=== PATIENT | female | born 1950 | race African-American/Black ===

== ENCOUNTER 2018-08-19 20:30 | Inpatient (IN) | payer MEDICARE, OTHER ==
[~2018-08-19] VITALS: Ht 177.8 cm; Wt 101.6 kg
[~2018-08-19 20:30] MED LIST: ALLOPURINOL100 M1 ORAL; ASPIRIN81 MG ORAL; CIPRO500 MG PO; FUROSEMIDE40 MG ORAL; ISOSORBIDE DINI30 MG ORAL; KLOR-CON 88 MEQ ORAL; LEVOXYL150 MCG ORAL; LOSARTAN POTASS50 MG ORAL; METFORMIN HCL1000 M1 ORAL; MINOXIDIL2.5 MG PO; MOMETASONE FUR MC; NIFEDIPINE ER60 M2 ORAL; OMEPRAZOLE40 M1 ORAL; SINGULAIR10 MG ORAL; SYMBICORT 16010.2 G1 IH; TRAMADOL HCL50 MG ORAL; TRIAMTERENE-HC1 EAC7 ORAL
[2018-08-19 20:47] VITALS: BP 180/110
--- NOTE | 2018-08-19 20:47 | NUR ---
ED Nurse Note: Pt states she been sick 1 week and feels worse today. Pt is on 2L N/C, 96% and CPOD HX.
--- NOTE | 2018-08-19 20:51 | Emergency Room Report ---
History of Present Illness General Chief Complaint: Upper Respiratory Illness Source: Patient, EMS Present Illness HPI Patient presents with dyspnea and chest pain. This been progressing over the last couple of days. She has a history of asthma and COPD. She's been coughing and producing phlegm that's getting thicker. She denies any fevers or chills. She is on oxygen at this time. She's been using breathing treatments without help. She also has history of congestive heart failure. She's complaining about left-sided chest pain that's below her left breast and not radiating. It's more pleuritic. Pain is rated 6/10, non-radiating. The patient has indwelling Velázquez catheter. She's complains of diarrhea also related to medication that she took regarding narcotics. She denies any vomiting or nausea. She has chronic weakness which has worsened slightly. Depression. Allergies: Coded Allergies: ERYTHROMYCIN BASE (Unverified Allergy, Unknown, 07/18/18) THIOPENTAL (Unverified Allergy, Unknown, 07/18/18) Uncoded Allergies: ERYTHROMYCIN (Allergy, Unknown, 07/18/18) SODIUM PENATHOL (Allergy, Unknown, 07/18/18) Patient History Past Medical History: see triage record Social History: Denies: smoking Social History Narrative at home Now: No Reviewed Nursing Documentation: PMH: Agreed; PSxH: Agreed Nursing Documentation-PMH Hx Cardiac Problems: Yes - hyperlipidemia Hx Hypertension: Yes Hx Diabetes: Yes Review of Systems All Other Systems: negative except mentioned in HPI Physical Exam Vital Signs Date Time Temp Pulse Resp B/P (MAP) Pulse Ox O2 Delivery O2 Flow Rate FiO2 08/19/18 20:33 99.0 98 18 96 Nasal Cannula 2.0 Sp02 EP Interpretation: reviewed, abnormal - low as determined by me General Appearance: no apparent distress, alert, Chronically Ill Eyes: bilateral eye PERRL, bilateral eye other - arcus ENT: moist mucus membranes Neck: full range of motion, supple Respiratory: decreased breath sounds, wheezing, expiration Cardiovascular #1: regular rate, rhythm, edema - bilat trace to 1+ Cardiovascular #2: 2+ radial (L) Gastrointestinal: non tender, soft, decreased bowel sounds Genitourinary: no CVA tenderness Musculoskeletal: back normal, normal range of motion, no calf tenderness, Juju 's Sign negative Neurologic: alert, speech normal, oriented - X2 Psychiatric: depressed affect Skin: no rash Medical Decision Making Diagnostic Impression: Primary Impression: COPD exacerbation Additional Impressions: CHF (congestive heart failure) Qualified Codes: I50.82 - Biventricular heart failure Hypoxia UTI (urinary tract infection) Qualified Codes: N30.00 - Acute cystitis without hematuria ER Course Patient presents with dyspnea and chest pain history of COPD and asthma. Differential includes pneumonia, exacerbation of COPD, acute myocardial infarction, congestive heart failure amongst others. Evaluation will be with EKG, chest x-ray and labs including blood cultures and lactate. The patient will treated with gentle IV hydration, Solu Medrol and breathing treatments. EKG without injury. CXR with inc cor and CHF. Labs with normal WBC. Elevated BNP and lactate. UA with pyuria. Rocephin begun. Lasix given. Patient slightly improved. Admit telemetry, Dr. Olivas. Laboratory Tests Test 08/19/18 21:05 White Blood Count 5.7 K/UL (4.8-10.8) Red Blood Count 5.43 M/UL (4.20-5.40) H Hemoglobin 13.1 G/DL (12.0-16.0) Hematocrit 41.9 % (37.0-47.0) Mean Corpuscular Volume 77 FL (80-99) L Mean Corpuscular Hemoglobin 24.1 PG (27.0-31.0) L Mean Corpuscular Hemoglobin Concent 31.2 G/DL (32.0-36.0) L Red Cell Distribution Width 16.6 % (11.6-14.8) H Platelet Count 271 K/UL (150-450) Mean Platelet Volume 7.0 FL (6.5-10.1) Neutrophils (%) (Auto) 68.6 % (45.0-75.0) Lymphocytes (%) (Auto) 22.2 % (20.0-45.0) Monocytes (%) (Auto) 7.9 % (1.0-10.0) Eosinophils (%) (Auto) 0.2 % (0.0-3.0) Basophils (%) (Auto) 1.1 % (0.0-2.0) Prothrombin Time 17.6 SEC (9.30-11.50) H Prothrombin Time INR 1.7 (0.9-1.1) H PTT 33 SEC (23-33) Urine Color Yellow Urine Appearance Slightly cloudy Urine pH 5 (4.5-8.0) Urine Specific [place] 1.020 (1.005-1.035) Urine Protein 3+ (NEGATIVE) H Urine Glucose (UA) Negative (NEGATIVE) Urine Ketones Negative (NEGATIVE) Urine Blood 5+ (NEGATIVE) H Urine Nitrite Negative (NEGATIVE) Urine Bilirubin Negative (NEGATIVE) Urine Urobilinogen Normal MG/DL (0.0-1.0) Urine Leukocyte Esterase 3+ (NEGATIVE) H Urine RBC 5-10 /HPF (0 - 2) H Urine WBC 15-20 /HPF (0 - 2) H Urine Squamous Epithelial Cells Many /LPF (NONE/OCC) H Urine Calcium Oxalate Crystals Moderate /LPF (NONE) Urine Bacteria Moderate /HPF (NONE) H Sodium Level 135 MMOL/L (136-145) L Potassium Level 3.6 MMOL/L (3.5-5.1) Chloride Level 97 MMOL/L (98-107) L Carbon Dioxide Level 26 MMOL/L (21-32) Anion Gap 12 mmol/L (5-15) Blood Urea Nitrogen 24 mg/dL (7-18) H Creatinine 0.9 MG/DL (0.55-1.30) Estimate Glomerular Filtration Rate > 60 mL/min (>60) Glucose Level 129 MG/DL (74-106) H Lactic Acid Level 2.80 mmol/L (0.4-2.0) H Calcium Level 9.2 MG/DL (8.5-10.1) Total Bilirubin 1.0 MG/DL (0.2-1.0) Aspartate Amino Transferase (AST) 22 U/L (15-37) Alanine Aminotransferase (ALT) 9 U/L (12-78) L Alkaline Phosphatase 75 U/L (46-116) Total Creatine Kinase 66 U/L (26-308) Troponin I 0.048 ng/mL (0.000-0.056) Pro-B-Type Natriuretic Peptide 9532 pg/mL (0-125) H Total Protein 7.2 G/DL (6.4-8.2) Albumin 2.9 G/DL (3.4-5.0) L Globulin 4.3 g/dL Albumin/Globulin Ratio 0.7 (1.0-2.7) L Lipase 119 U/L (73-393) EKG Diagnostic Results Rate: tachycardiac Rhythm: NSR ST Segments: no acute changes Rhythm Strip Diag. Results EP Interpretation: yes Rhythm: no PVC's, other - Sinus tachycardia with PACs Chest X-Ray Diagnostic Results Chest X-Ray Diagnostic Results : Chest X-Ray Ordered: Yes # of Views/Limited/Complete: 1 View Indication: Shortness of Breath EP Interpretation: Yes Interpretation: no pneumothorax, other - inc cor, atelectasis, CHF, L effusion Impression: Other Electronically Signed by: Electronically signed by Car Lopez MD Last Vital Signs Date Time Temp Pulse Resp B/P (MAP) Pulse Ox O2 Delivery O2 Flow Rate FiO2 08/20/18 15:02 106 20 100 Nasal Cannula 2.0 28 08/20/18 13:43 125/95 08/20/18 12:00 97.7 Status: improved Disposition: ADMITTED INPATIENT Condition: Serious Car Lopez MD August 19, 2018 20:51
[2018-08-19] MEDS ORDERED: Ipratropium 0.02% Inh Soln 2.5ml UD HHN ONE (21:00)
[2018-08-19] MEDS ORDERED: Albuterol ud Inhalation HHN ONE (21:00)
[2018-08-19] MEDS ORDERED: Solu-MEDROL 125mg Inj IVP ONE (21:00)
[2018-08-19] MEDS: Sodium Chloride 550 ML IV SCH ×2 (21:19→22:38)
[2018-08-19 21:30] LABS: BASOPHILS % (AUTO) 1.1 % (0.0-2.0); EOSINOPHILS % (AUTO) 0.2 % (0.0-3.0); HEMATOCRIT 41.9 % (37.0-47.0); HEMOGLOBIN 13.1 G/DL (12.0-16.0); LYMPHOCYTES % (AUTO) 22.2 % (20.0-45.0); MEAN CORPUSCULAR VOLUME 77 FL (80-99); MONOCYTES % (AUTO) 7.9 % (1.0-10.0); NEUTROPHILS % (AUTO) 68.6 % (45.0-75.0); PLATELET COUNT 271 K/UL (150-450); RED BLOOD COUNT 5.43 M/UL (4.20-5.40); RED CELL DISTRIBUTION WIDTH 16.6 % (11.6-14.8); WHITE BLOOD COUNT 5.7 K/UL (4.8-10.8)
[2018-08-19 21:41] LABS: INR 1.7 (0.9-1.1)
[2018-08-19 21:45] LABS: ANION GAP 12 mmol/L (5-15); BLOOD UREA NITROGEN 24 mg/dL (7-18); CALCIUM 9.2 MG/DL (8.5-10.1); CARBON DIOXIDE 26 MMOL/L (21-32); CHLORIDE 97 MMOL/L (98-107); CREATININE 0.9 MG/DL (0.55-1.30); POTASSIUM 3.6 MMOL/L (3.5-5.1); SODIUM 135 MMOL/L (136-145)
[2018-08-19 21:59] LABS: ALANINE AMINOTRANSFERASE 9 U/L (12-78); ALBUMIN 2.9 G/DL (3.4-5.0); ALBUMIN/GLOBULIN RATIO 0.7 (1.0-2.7); ALKALINE PHOSPHATASE 75 U/L (46-116); ASPARTATE AMINO TRANSFERASE 22 U/L (15-37); CREATINE KINASE 66 U/L (26-308)
[2018-08-19] MEDS ORDERED: ELIQUIS5 MG PO (22:08)
[2018-08-19 22:14] LABS: APPEARANCE,URINE SLIGHTLY CLOUDY; BILIRUBIN, URINE NEGATIVE (NEGATIVE); GLUCOSE, URINE (UA) NEGATIVE (NEGATIVE); KETONES,URINE NEGATIVE (NEGATIVE); LEUKOCYTE ESTERASE ,URINE 3+ (NEGATIVE); NITRITE,URINE NEGATIVE (NEGATIVE); PH,URINE 5 (4.5-8.0); PROTEIN,URINE 3+ (NEGATIVE); UROBILINOGEN,URINE NORMAL MG/DL (0.0-1.0)
[2018-08-19 22:24] LABS: COLOR,URINE YELLOW
[2018-08-19] MEDS ORDERED: cefTRIAXone 1 GM in D5W 55 ML IVPB ONE (22:45)
--- NOTE | 2018-08-19 23:05 | NUR ---
ED Nurse Note: telephone report given to FRANKLIN Stahl for continuity of care
--- NOTE | 2018-08-19 23:13 | NUR ---
NURSE NOTES: Received pt. from ED via grace. Pt. transferred to unit and bed without any incident. Received report from FRANKLIN Love. Pt. is A/Ox4. [place] pt. to unit, room, and hospital policies. Pt. is on 2L NC. radiation therapist is in placed, IV site intact, asymptomatic, and patent. Bed is in the lowest position, locked, and alarmed. Call light within reach. No sign and symptoms of acute distress noted at this time. Will continue plan of care. Will contact Dr. Olivas for admission orders.
--- NOTE | 2018-08-19 23:15 | NUR ---
NURSE NOTES: Contacted Dr. Olivas for admission orders. Awaiting call back.
--- NOTE | 2018-08-19 23:16 | NUR ---
ED Nurse Note: pt was sent up with engine monitor, pt accompanied by mo rn and claudia emt. pt is aox4, pt shows no signs of distress, pt skkin intact except for what was documented on intervention. pt has taken all belongings. pt vss.
[2018-08-20] VITALS: BP 152/89
[2018-08-20 04:12] VITALS: BP 151/86
--- NOTE | 2018-08-20 05:54 | NUR ---
NURSE NOTES: Received admission orders from Dr. Olivas. Will note and carry out.
[2018-08-20] MEDS ORDERED: Albuterol/Ipratropium 3ml neb HHN PRN (06:45)
--- NOTE | 2018-08-20 07:30 | NUR ---
NURSE NOTES: Report received from FRANKLIN Stahl. Pt is lying comfortably in semi-fowlers with no signs of distress. A+Ox4, denies pain and SOB. Respirations are even and unlabored on room air. Velázquez is in place and patent, draining to gravity at foot of bed. IV site is intact and saline locked. Bed is at lowest position, brakes engaged, siderails x2, bed alarm on, and call light within reach. Pt is in stable condition at this time; will continue to monitor. Addendum: 08/20/18 at 0756 by JIM BRYANT RN Correction: pt is on 2 L NC
[2018-08-20] MEDS ORDERED: traMADol 50mg tab ORAL PRN (08:00)
--- NOTE | 2018-08-20 08:01 | NUR ---
HAND-OFF: Report given to FRANKLIN Lam.
[2018-08-20 08:40] VITALS: BP 151/93
[2018-08-20] MEDS: Losartan 50mg tab ORAL SCH ×3 (08:46→08:56)
[2018-08-20] MEDS: Aspirin Baby 81mg ORAL SCH (08:46)
[2018-08-20] MEDS: Solu-MEDROL 125mg Inj IVP SCH ×2 (08:46→20:34)
[2018-08-20] MEDS: Furosemide 40mg tab ORAL SCH (08:47)
[2018-08-20] MEDS: metFORMIN 500mg tab ORAL SCH ×2 (08:47→17:18)
[2018-08-20] MEDS: Eliquis 5mg tablet ORAL SCH ×2 (08:47→17:18)
[2018-08-20] MEDS: Allopurinol 100mg Tab ORAL SCH (08:48)
[2018-08-20] MEDS: Minoxidil 2.5mg tab ORAL SCH (08:48)
[2018-08-20] MEDS: Triamterene/Hctz 37.5/25 cap ORAL SCH (08:48)
[2018-08-20] MEDS ORDERED: Heparin 5000 units/ml inj SUBQ SCH (09:00)
[2018-08-20] MEDS: cefTRIAXone 1 GM in D5W 55 ML IVPB SCH (09:04)
[2018-08-20] MEDS ORDERED: HYDROcodone/Acetamin 10/325 tab ORAL PRN (10:00)
[2018-08-20] MEDS ORDERED: HYDROcodone/Acetamin 5/325 tab ORAL PRN (10:00)
[2018-08-20] MEDS: Albuterol/Ipratropium 3ml neb HHN SCH ×5 (11:00→23:00)
--- NOTE | 2018-08-20 11:52 | Diagnostic Imaging Report ---
Indication: Dyspnea Comparison: 07/17/2018 A single view chest radiograph was obtained. Findings: There is enlargement of the cardiac silhouette with pulmonary vascular redistribution and prominence, hazy vessel margins and the suggestion of interstitial edema consistent with CHF. Bones are osteopenic. IMPRESSION: Congestive heart failure
[2018-08-20 12:00] VITALS: BP 127/97
--- NOTE | 2018-08-20 12:26 | NUR ---
CASE MANAGEMENT:REVIEW 68 YR OLD FEMALE BIBA FROM HOME CC: SOB. CHEST PAIN. HAD BREATHING TREATMENTS AT HOME BUT DIDN'T HELP PMH: COPD SI: HYPOXIA. COPD EXACERBATION. UTI. CHF 99.0 98 18 96% ON 2L/NC GLUCOSE+129 LACTIC ACID+2.80 AND 3.00 BNP+9532 IS: ALBUTEROL HHN IPRATROPIUM HHN IV SOLUMEDROL 500CC NS BOLUS CHEST XRAY BLOOD CX : TO TELEMETRY UNIT INTERQUAL CRITERIA MET
--- NOTE | 2018-08-20 12:45 | History and Physical Report ---
DATE OF ADMISSION: 08/19/2018 CHIEF COMPLAINT: Shortness of breath. HISTORY OF PRESENT ILLNESS: The patient is a 68-year-old female. She has a history of congestive heart failure, COPD, and asthma. She has a history of DVT, hypertension, diabetes, and scleroderma. She presented from home with complaints of worsening progressive shortness of breath for the last several weeks. According to the patient, she has been having sweats and productive cough for the last several weeks. Denies any fevers. Because of worsening shortness of breath, she presented to the emergency room. On evaluation there, she was slightly tachycardic and hypertensive. Laboratory tests were significant for a natriuretic peptide level of 9500, slightly elevated lactic acid level of 2.8. Chest x-ray was done, but the results which are currently pending. In the emergency room, the patient received a single dose of Lasix and Solu-Medrol. She is now admitted for further evaluation and care. PAST MEDICAL HISTORY: As above. PAST SURGICAL HISTORY: Includes a history of appendectomy and . CURRENT MEDICATIONS: Reconciled and reviewed. ALLERGIES: Include erythromycin, sodium pentothal, and thiopental. FAMILY HISTORY: Noncontributory. SOCIAL HISTORY: There is no known history of alcohol or drugs. The patient is a prior smoker. PHYSICAL EXAMINATION: VITAL SIGNS: Temperature 97.3, pulse 107, respirations 22, and blood pressure 152/89. GENERAL: The patient is well developed, in no apparent distress. HEART: Regular rate and rhythm. LUNGS: Significant for bibasilar rales, otherwise no wheezes. ABDOMEN: Soft, nontender, and nondistended. EXTREMITIES: Without clubbing, cyanosis, or edema. PERTINENT DATA: Chest x-ray results are currently pending. Labs, white count 5, hemoglobin 13, hematocrit 41, and platelets 271. INR is 1.7. Sodium 135, potassium 3.6, BUN 24, and creatinine 0.9. Troponin 0.048. Natriuretic peptide level was 9500. ASSESSMENT: This is a pleasant female admitted with complaints of shortness of breath, unclear etiology, suspect some combination of heart failure and chronic obstructive pulmonary disease exacerbation, cannot rule out pulmonary embolism. She also has a history of hypertension, diabetes, and scleroderma. PLAN: 1. IV diuretic therapy. 2. Intravenous steroids. 3. Respiratory treatments. 4. Check a venous duplex of the legs. 5. Consider V/Q scan or CT pulmonary angio. 6. Continue Eliquis. Monitor for signs and symptoms of bleeding. 7. Antibiotic therapy. 8. Thyroid replacement therapy. 9. Pulmonary consultation will be obtained. Prem Robledo M.D. DR: JOHAN JOB#: [id number] CC:
--- NOTE | 2018-08-20 12:47 | Cardiology Progress Note ---
Assessment/Plan Assessment/Plan The patient is seen and examined, full consult note is dictated. Objective Last 24 Hour Vital Signs Date Time Temp Pulse Resp B/P (MAP) Pulse Ox O2 Delivery O2 Flow Rate FiO2 08/20/18 12:00 97.7 111 20 127/97 (107) 91 08/20/18 11:09 108 20 100 Nasal Cannula 2.0 28 08/20/18 11:01 28 08/20/18 11:01 106 20 96 Nasal Cannula 2.0 28 08/20/18 08:56 151/93 08/20/18 08:54 151/93 08/20/18 08:48 151/93 08/20/18 08:47 112 151/93 08/20/18 08:40 97.9 112 20 151/93 (112) 94 08/20/18 08:05 104 20 100 Nasal Cannula 2.0 28 08/20/18 08:00 109 08/20/18 07:55 108 22 95 Nasal Cannula 2.0 28 08/20/18 07:55 96 Nasal Cannula 2.0 28 08/20/18 07:55 Nasal Cannula 2.0 28 08/20/18 07:55 28 08/20/18 04:12 97.9 112 20 151/86 (107) 94 08/20/18 04:00 108 08/20/18 00:13 Nasal Cannula 2.0 08/20/18 00:00 97.3 107 22 152/89 (110) 93 08/20/18 00:00 107 08/19/18 23:15 99.0 102 34 134/104 94 Nasal Cannula 3.0 08/19/18 21:38 114 26 100 Nasal Cannula 2.0 28 08/19/18 21:11 106 26 96 Nasal Cannula 2.0 28 08/19/18 20:47 99.0 98 18 180/110 96 Nasal Cannula 2.0 08/19/18 20:47 98 18 Nasal Cannula 2.0 08/19/18 20:33 99.0 98 18 96 Nasal Cannula 2.0 Intake and Output 08/19/18 08/20/18 18:59 06:59 Output Total 300 ml Balance -300 ml Output Urine Total 300 ml Laboratory Tests Test 08/19/18 21:05 08/19/18 22:28 White Blood Count 5.7 K/UL (4.8-10.8) Red Blood Count 5.43 M/UL (4.20-5.40) H Hemoglobin 13.1 G/DL (12.0-16.0) Hematocrit 41.9 % (37.0-47.0) Mean Corpuscular Volume 77 FL (80-99) L Mean Corpuscular Hemoglobin 24.1 PG (27.0-31.0) L Mean Corpuscular Hemoglobin Concent 31.2 G/DL (32.0-36.0) L Red Cell Distribution Width 16.6 % (11.6-14.8) H Platelet Count 271 K/UL (150-450) Mean Platelet Volume 7.0 FL (6.5-10.1) Neutrophils (%) (Auto) 68.6 % (45.0-75.0) Lymphocytes (%) (Auto) 22.2 % (20.0-45.0) Monocytes (%) (Auto) 7.9 % (1.0-10.0) Eosinophils (%) (Auto) 0.2 % (0.0-3.0) Basophils (%) (Auto) 1.1 % (0.0-2.0) Prothrombin Time 17.6 SEC (9.30-11.50) H Prothromb Time International Ratio 1.7 (0.9-1.1) H Activated Partial Thromboplast Time 33 SEC (23-33) Urine Color Yellow Urine Appearance Slightly cloudy Urine pH 5 (4.5-8.0) Urine Specific [place] 1.020 (1.005-1.035) Urine Protein 3+ (NEGATIVE) H Urine Glucose (UA) Negative (NEGATIVE) Urine Ketones Negative (NEGATIVE) Urine Blood 5+ (NEGATIVE) H Urine Nitrite Negative (NEGATIVE) Urine Bilirubin Negative (NEGATIVE) Urine Urobilinogen Normal MG/DL (0.0-1.0) Urine Leukocyte Esterase 3+ (NEGATIVE) H Urine RBC 5-10 /HPF (0 - 2) H Urine WBC 15-20 /HPF (0 - 2) H Urine Squamous Epithelial Cells Many /LPF (NONE/OCC) H Urine Calcium Oxalate Crystals Moderate /LPF (NONE) Urine Bacteria Moderate /HPF (NONE) H Sodium Level 135 MMOL/L (136-145) L Potassium Level 3.6 MMOL/L (3.5-5.1) Chloride Level 97 MMOL/L (98-107) L Carbon Dioxide Level 26 MMOL/L (21-32) Anion Gap 12 mmol/L (5-15) Blood Urea Nitrogen 24 mg/dL (7-18) H Creatinine 0.9 MG/DL (0.55-1.30) Estimat Glomerular Filtration Rate > 60 mL/min (>60) Glucose Level 129 MG/DL (74-106) H Lactic Acid Level 2.80 mmol/L (0.4-2.0) H 3.00 mmol/L (0.66-2.22) H Calcium Level 9.2 MG/DL (8.5-10.1) Total Bilirubin 1.0 MG/DL (0.2-1.0) Aspartate Amino Transf (AST/SGOT) 22 U/L (15-37) Alanine Aminotransferase (ALT/SGPT) 9 U/L (12-78) L Alkaline Phosphatase 75 U/L (46-116) Total Creatine Kinase 66 U/L (26-308) Troponin I 0.048 ng/mL (0.000-0.056) Pro-B-Type Natriuretic Peptide 9532 pg/mL (0-125) H Total Protein 7.2 G/DL (6.4-8.2) Albumin 2.9 G/DL (3.4-5.0) L Globulin 4.3 g/dL Albumin/Globulin Ratio 0.7 (1.0-2.7) L Lipase 119 U/L (73-393) Ronak Snow MD August 20, 2018 12:47
--- NOTE | 2018-08-20 13:28 | NUR ---
NURSE NOTES:WOUND CARE NOTES:Pt presented on admission with resolving pressure injury sacrum .[place] epithelial noted to base of wound. Edges adherent and flat .Periwound without erythema or induration.(L)0.9cm x (W)0.8cm. DTPI noted to L heel.L heel fluctuant and tender when minimally palpated. (L)4.5cm x (W)6cm. DTPI noted to lateral R heel .Base of wound maroon ,fluctuant and tender when minimally palpated. No other areas of skin breakdown noted to all other bony prominences. Recommendations: Apply Triad Paste to sacrum. Cover with Optifoam drsg. Change every 3 days and prn. Apply Cavilon Skin Barrier to R and L heels.Cover each heel with Optifoam drsgs. Change every 7 days and prn. Reposition at least every 2hours or as tolerated. Off-load heels with pillow.
[2018-08-20 16:00] VITALS: BP 133/89
--- NOTE | 2018-08-20 16:30 | History and Physical Report ---
DATE OF ADMISSION: 08/19/2018 REASON FOR ADMISSION: COPD exacerbation. HISTORY: This is a 68-year-old female, very debilitated. The patient has had worsening shortness of breath and chest discomfort. The patient does have underlying history of COPD. The patient is homebound, oxygen dependent, bedbound. The patient with recent prolonged retirement hospitalization with decubitus, which eventually did improve. The patient notes also some discomfort and pain radiating below her left breast. The patient does have an indwelling Velázquez catheter. She does have some diarrhea. The patient is also with significant pain. The patient is admitted for further care and management. She was noted to have evidence of COPD exacerbation and congestive heart failure. PAST MEDICAL HISTORY: Notable for congestive heart failure, dyslipidemia, pressure ulcer, hypertension, diabetes, bed-bound state, and chronic obstructive pulmonary disease. MEDICATIONS: Reviewed. ALLERGIES: Reviewed. SOCIAL HISTORY: Nonsmoker and nondrinker at this time. She is fully dependent and disabled. REVIEW OF SYSTEMS: All 10 points reviewed and are essentially as above. PHYSICAL EXAMINATION: GENERAL: A well-developed female, chronically ill. VITAL SIGNS: Sats 95% on 2 liters, heart rate 108, blood pressure 151/86, temperature 97.9, and respiratory rate is 22. HEENT: Negative. NECK: Supple. No adenopathy. LUNGS: Moderate breath sounds. Scattered rhonchi and wheezes. CARDIAC: S1 and S2. Slightly tachycardic without murmurs, rubs, or gallops. ABDOMEN: Soft, nontender, and nondistended. EXTREMITIES: No cyanosis or clubbing. There is some edema. NEUROLOGICAL: Very weak overall, but alert. LABORATORY DATA: Reviewed. Albumin 2.9. Lactic acid 2.8. Sodium 135, BUN 24, and creatinine 0.9. White count is 5.7 and platelets of 271,000. IMPRESSION: 1. Chronic obstructive pulmonary disease with acute exacerbation. 2. History of congestive heart failure. 3. Lactic acidemia of unclear significance. 4. Hyponatremia. 5. Mild azotemia. 6. Mild protein-calorie malnutrition. RECOMMENDATIONS: 1. Supportive care. 2. Intravenous steroids. 3. Monitor blood sugars with diabetes med therapy. 4. Continue with Eliquis for blood thinners. 5. Blood pressure support. 6. Resume home medication. 7. Follow up clinically for change and stabilize and discharge when the patient improves. Rodolfo Olivas M.D. DR: ANDREAS JOB#: [id number] CC:
[2018-08-20] MEDS: Montelukast 10mg tablet ORAL SCH (17:18)
--- NOTE | 2018-08-20 19:10 | NUR ---
HAND-OFF: Report given to FRANKLIN Infante. Pt is in stable condition; plan of care endorsed.
--- NOTE | 2018-08-20 19:15 | NUR ---
NURSE NOTES: Received report from Darwin Santana RN. Patient in bed AAO X4 with HOB elevated at semi-fowlers with no complaints of acute pain or discomfort noted at this time. Patient able to express needs and wants verbally with no difficulty. Kept clean, dry and comfortable at all times. IV line intact and patent SL. Placed on continuous cardiac monitoring per protocol. Patient has FC for retention; kept intact, patent and draining well. On 2L NC, saturating at 93-94% with no S/S of respiratory distress or SOB noted at this time. Safety precaution in place; siderails X3 up, call light within reach, bed in lowest position, brakes and alarm on at all times. Needs and wants anticipated and attended. Will continue plan of care and monitor for any changes in condition noted. -P200 mattress ordered for healing sacral wound -ABD US in the morning 08/21/18 -NPO at midnight prior to procedure
[2018-08-20 20:00] VITALS: BP 139/80
[2018-08-21] VITALS: BP 106/79
[2018-08-21] MEDS: Albuterol/Ipratropium 3ml neb HHN SCH ×6 (02:53→23:27)
[2018-08-21 04:00] VITALS: BP 112/76
--- NOTE | 2018-08-21 04:19 | NUR ---
NURSE NOTES: Patient in bed asleep with no S/S of distress at this time. Will continue to monitor.
--- NOTE | 2018-08-21 06:45 | Consultation ---
DATE OF CONSULTATION: CONSULTING PHYSICIAN: Promise William M.D. CHIEF COMPLAINT: I was asked to see this patient by Dr. Rodolfo Matias and Dr. Prem Jay for evaluation of gastric procedure. HISTORY OF PRESENT ILLNESS: The patient is a 68-year-old -[place] woman with extensive lung disease as well as heart disease now in the hospital due to worsening shortness of breath over the last 2 weeks. The patient has some left upper quadrant and pelvic abdominal discomfort with some worsening of appetite. She does have some regurgitation at times of symptoms or gastroesophageal reflux. She states that her pain in the left abdomen has been going on and off for about a year. She occasional has diarrhea, although she attributes this to meds for chronic constipation. The patient denies any nausea, vomiting. However, she has not had any endoscopy and colonoscopy since 2006. Previously used a CPAP mask at home, but did not help. She does have home oxygen. She has lost some degree of weight, although She is not really sure of how much. The patient states that she has had a lifelong history of bronchitis, but she does deny smoking at this time. PAST MEDICAL HISTORY: History of COPD, congestive heart failure, asthma, deep vein thrombosis, hypertension, diabetes, scleroderma, chronic constipation, chronic bronchitis, status post appendectomy, status post . ALLERGIES: Include erythromycin, sodium, Pentothal thiopental. FAMILY HISTORY: Noncontributory. SOCIAL HISTORY: The patient has no history of drinking, or drugs. She denies smoking. REVIEW OF SYSTEMS: The patient also states she has a history of coronary stent placement. Atrial fibrillation. PHYSICAL EXAMINATION: GENERAL: A very pleasant -[place] woman, seen in the room. HEENT: Normocephalic and atraumatic. Sclerae anicteric. Oropharynx is clear. NECK: Supple. CHEST: Revealed coarse breath sounds. CARDIOVASCULAR: Revealed regular rate. ABDOMEN: Soft. Good bowel sounds. There is some mild left upper quadrant tenderness to palpation without guarding or rebound. EXTREMITIES: Revealed no edema. LABORATORY DATA: Noted. ASSESSMENT: This patient presents with a number of gastrointestinal symptoms, which are intermittent and chronic, although the patient has had some degree of weight loss. The patient at this time is undergoing significant pulmonary management and therefore, I will begin first step some stool tests including infectious pathologies, occult blood. The patient also had an ultrasound of the abdomen. Once she has more stabilized, CT scan can be considered. The patient is not a good candidate for endoscopy, colonoscopy at this time, but a week ago, but she has improved. RECOMMENDATIONS: Per above discussion and per orders written in the chart. Thank you for asking me to participate in care of this patient. Promise William M.D. DR: Susan JOB#: [id number] CC: SHEILA
[2018-08-21 07:31] LABS: % IRON SATURATION 4 % (15-50); IRON 14 ug/dL (50-175); TOTAL IRON BINDING CAPACITY 376 ug/dL (250-450)
[2018-08-21 07:33] LABS: FERRITIN 36 NG/ML (8-388)
--- NOTE | 2018-08-21 07:37 | NUR ---
HAND-OFF: Report given to Ksenia Maldonado RN. Patient in bed in stable condition. Endorsed plan of care.
--- NOTE | 2018-08-21 07:40 | NUR ---
NURSE NOTES: Pt received from FRANKLIN Infante alert and oriented x4 with no acute s/s of distress noted. Currently on 2L NC, no s/s of SOB. Respirations even and unlabored. IV site asymptomatic and patent. Velázquez catheter patent and draining to clear and yellow urine. Bed alarm on. Bed in lowest position, call light and belongings within reach.
[2018-08-21 08:00] VITALS: BP 107/71
--- NOTE | 2018-08-21 08:13 | General Progress Note ---
Assessment/Plan Problem List: (1) Encounter for generalized patient complaints ICD Codes: Z00.8 - Encounter for other general examination SNOMED: 675364083 (2) CHF (congestive heart failure) ICD Codes: I50.9 - Heart failure, unspecified SNOMED: 92374679 Qualifiers: Qualified Codes: I50.82 - Biventricular heart failure (3) Hypoxia ICD Codes: R09.02 - Hypoxemia SNOMED: 603334002 (4) UTI (urinary tract infection) ICD Codes: N39.0 - Urinary tract infection, site not specified SNOMED: 62398444 Qualifiers: Qualified Codes: N30.00 - Acute cystitis without hematuria (5) COPD exacerbation ICD Codes: J44.1 - Chronic obstructive pulmonary disease with (acute) exacerbation SNOMED: 642449697 Status: stable, progressing Assessment/Plan: iv abx follow up cultures resp rx abd emilie PPI xarelto monitor for bleeding steroids per pulm Subjective ROS Limited/Unobtainable: No Constitutional: Reports: malaise, weakness HEENT: Reports: no symptoms Cardiovascular: Reports: no symptoms Respiratory: Reports: cough Gastrointestinal/Abdominal: Reports: abdominal pain Genitourinary: Reports: no symptoms Neurologic/Psychiatric: Reports: no symptoms Endocrine: Reports: no symptoms Hematologic/Lymphatic: Reports: no symptoms Allergies: Coded Allergies: ERYTHROMYCIN BASE (Unverified Allergy, Unknown, 07/18/18) THIOPENTAL (Unverified Allergy, Unknown, 07/18/18) Uncoded Allergies: ERYTHROMYCIN (Allergy, Unknown, 07/18/18) SODIUM PENATHOL (Allergy, Unknown, 07/18/18) All Systems: reviewed and negative except above Subjective no events. w/o complaints. less congested. decreased cough. Objective Last 24 Hour Vital Signs Date Time Temp Pulse Resp B/P (MAP) Pulse Ox O2 Delivery O2 Flow Rate FiO2 08/21/18 06:58 96 Nasal Cannula 2.0 28 08/21/18 06:58 Nasal Cannula 2.0 28 08/21/18 06:58 Nasal Cannula 2.0 28 08/21/18 06:58 Nasal Cannula 2.0 28 08/21/18 04:00 97.4 104 20 112/76 (88) 95 08/21/18 04:00 102 08/21/18 03:03 102 20 99 Nasal Cannula 2.0 28 08/21/18 02:53 100 20 96 Nasal Cannula 2.0 28 08/21/18 02:53 28 08/21/18 00:00 97.8 107 20 106/79 (88) 92 08/21/18 00:00 111 08/20/18 23:01 Nasal Cannula 08/20/18 23:01 Nasal Cannula 08/20/18 21:00 Nasal Cannula 2.0 08/20/18 20:35 67 139/80 08/20/18 20:00 111 08/20/18 20:00 98.0 67 20 139/80 (99) 96 08/20/18 19:31 99 20 99 Nasal Cannula 2.0 28 08/20/18 19:22 Nasal Cannula 2.0 28 08/20/18 19:21 98 Nasal Cannula 2.0 28 08/20/18 19:21 28 08/20/18 19:21 98 20 98 Nasal Cannula 2.0 28 08/20/18 16:00 96.7 114 20 133/89 (104) 90 08/20/18 16:00 111 08/20/18 15:02 106 20 100 Nasal Cannula 2.0 28 08/20/18 14:52 28 08/20/18 14:52 103 20 96 Nasal Cannula 2.0 28 08/20/18 13:43 114 125/95 08/20/18 12:00 110 08/20/18 12:00 97.7 111 20 127/97 (107) 91 08/20/18 11:09 108 20 100 Nasal Cannula 2.0 28 08/20/18 11:01 28 08/20/18 11:01 106 20 96 Nasal Cannula 2.0 28 08/20/18 09:00 Nasal Cannula 2.0 08/20/18 08:56 151/93 08/20/18 08:54 151/93 08/20/18 08:48 151/93 08/20/18 08:47 112 151/93 08/20/18 08:40 97.9 112 20 151/93 (112) 94 Intake and Output 08/20/18 08/21/18 19:00 07:00 Intake Total 120 ml Output Total 50 ml 400 ml Balance 70 ml -400 ml Intake Oral 120 ml Output Urine Total 50 ml 400 ml Laboratory Tests 08/21/18 05:31: Iron Level 14L, Total Iron Binding Capacity 376, Percent Iron Saturation 4L, Unsaturated Iron Binding 362H, Ferritin 36 Height (Feet): 5 Height (Inches): 10.00 Weight (Pounds): 193 General Appearance: WD/WN, alert Neck: supple Cardiovascular: normal peripheral pulses, normal rate Respiratory/Chest: chest wall non-tender, lungs clear, normal breath sounds Abdomen: normal bowel sounds, non tender, soft, no organomegaly Pelvis: normal external exam, normal rectal exam, speculum exam normal Extremities: normal range of motion Edema: no edema noted Arm (L), no edema noted Arm (R), no edema noted Leg (L), no edema noted Leg (R), no edema noted Pedal (L), no edema noted Pedal (R), no edema noted Generalized Prem Robledo MD August 21, 2018 08:13
--- NOTE | 2018-08-21 08:20 | NUR ---
NURSE NOTES: Upon med administration, pt was coughing and had difficulty swallowing medications and thin liquids. RN endorsed to Dr. Olivas for ST craft for assessment. Per Dr. Olivas, jose ST evaluate pt. RN endorsed to Devora BALDERRAMA for eval.
[2018-08-21] MEDS: Furosemide 40mg tab ORAL SCH (08:27)
[2018-08-21] MEDS: Solu-MEDROL 125mg Inj IVP SCH ×2 (08:27→21:35)
[2018-08-21] MEDS: Aspirin Baby 81mg ORAL SCH (08:27)
[2018-08-21] MEDS: Allopurinol 100mg Tab ORAL SCH (08:27)
[2018-08-21] MEDS: Eliquis 5mg tablet ORAL SCH ×2 (08:27→17:17)
[2018-08-21] MEDS: Triamterene/Hctz 37.5/25 cap ORAL SCH (08:28)
[2018-08-21] MEDS: cefTRIAXone 1 GM in D5W 55 ML IVPB SCH (08:28)
[2018-08-21] MEDS: Losartan 50mg tab ORAL SCH (08:28)
[2018-08-21] MEDS: metFORMIN 500mg tab ORAL SCH ×2 (08:29→17:18)
[2018-08-21] MEDS: Minoxidil 2.5mg tab ORAL SCH (08:29)
--- NOTE | 2018-08-21 11:43 | Diagnostic Imaging Report ---
Indication:Abdominal pain Technique: Grayscale and duplex Doppler imaging of the abdomen performed. Comparison: None Findings: The study is limited as the patient was relatively immobile and the scan was performed completely with the patient in the right posterior oblique position. The liver is grossly unremarkable with mild generalized enlargement measuring up to 17 to 18 cm. The gallbladder shows no definite stones. Mild pericholecystic fluid noted. The demonstrated part of the pancreas, aorta and IVC obscured largely by bowel gas. Small bilateral pleural effusions are present. CBD is 4 mm.. The spleen is normal in size. Doppler evaluation of the main portal vein shows patency. No hydronephrosis seen. Impression: Mild hepatomegaly Trace ascites by the liver and gallbladder. Small bilateral pleural effusions
--- NOTE | 2018-08-21 11:46 | NUR ---
ST NOTE: BEDSIDE SWALLOW EVAL RECEIVED BEDSIDE SWALLOW EVAL ORDER CHART REVIEWED PRIOR THE EVALUATION REFERRED BY PRIMARY PHYSICIAN, DR. ALLRED PT IS A 68-YEAR-OLD FEMALE WHO WAS ADMITTED DUE TO COPD, AND ABD PAIN. DYSPHAGIA RISK FACTORS: HYPOXIA(PER MD, OXYGEN DEPENDENT), ASTH,A AND COPD, CHF, CHRONIC WEAKNESS, HTN, DM, GERD. PER CXR: CHF. PLOF: PT RESIDES AT HOME WITH DAUGHTER AND WITH CAREGIVER. NO POLST WAS NOTED. CURRENT STATUS: PT SEEN AT BEDSIDE IN AM. ALERT, COOPERATIVE, ABLE TO FOLLOW DIRECTIONS. PT WITH NC(2L). PER PT, REQUIRED BREATHING TREATMENT, THEREFORE, SHE IS ABLE TO COUGH UP THE PHLEGM. PER RNRICHA, NOTICED THAT PT SOMETIMES COUGHS WITH THIN LIQUIDS AND MASTICATED SOLID FOOD. PT WAS ONLY ABLE TO SIT UP AT 45 DEGREE. GIVEN PO TRIALS: ICE-CHIPS(TSP), THIN(TSP), NECTAR THICK(TSP), PUREE(TSP) AND CRACKER(ONE BITE). INITIAL IMPRESSION: PROBABLE MILD TO MODERATE OR WORSENED OROPHARYNGEAL DYSPHAGIA SLOW BUT FUNCTIONAL LABIAL AND LINGUAL MOVEMENT AND STRENGTH. MILDLY INCREASED ORAL TRANSIT TIME(3 SECS) UNTIL SWALLOW RESPONSE WAS TRIGGERED. PT STATES THAT THIN LIQUID AND FOOD SOMETIMES GOT STUCK IN THE LOWER THROAT AFTER SWALLOW. HAS RISK FOR ASPIRATION. RECOMMENDATIONS: 1. CONSERVATIVELY, LIQUIFIED PUREED, LIKE NECTAR THICK SOUP CONSISTENCY IS RECOMMENDED. HOWEVER, PT REFUSED TO BE ON THICK SOUP CONSISTENCY; AND WOULD LIKE TO BE ON CHOPPED DIET. FOR QUALITY OF LIFE, DIET IS RECOMMENDED MECH SOFT(CHOPPED) WITH NECTAR THICK LIQUIDS. 2. STRICT ASPIRATION/REFLUX PRECAUTIONS WITH 1TO1 ASSIST/FEEDING. 3. MODIFIED BARIUM SWALLOW STUDY ONLY IF ABLE. D/W PT AND RICHA REID. POSTED ASPIRATION/REFLUX PRECAUTIONS SIGN.
[2018-08-21 12:00] VITALS: BP 100/73
[2018-08-21] MEDS: Spironolactone 25mg tab ORAL SCH (14:35)
[2018-08-21] MEDS: traMADol 50mg tab ORAL PRN (14:35)
--- NOTE | 2018-08-21 14:55 | General Progress Note ---
Assessment/Plan Status: stable, progressing Assessment/Plan: 1. Chronic obstructive pulmonary disease with acute exacerbation. 2. History of congestive heart failure. 3. Lactic acidemia of unclear significance. 4. Hyponatremia. 5. Mild azotemia. 6. Mild protein-calorie malnutrition. PLAN increase pain management steroids as is monitor for change folllow up labs consider heme evaluation refusing snf losing weight and would benefit from additional rehab impression, plan, and exam edited and reviewed in detail care discussed with RN Subjective Allergies: Coded Allergies: ERYTHROMYCIN BASE (Unverified Allergy, Unknown, 07/18/18) THIOPENTAL (Unverified Allergy, Unknown, 07/18/18) Uncoded Allergies: ERYTHROMYCIN (Allergy, Unknown, 07/18/18) SODIUM PENATHOL (Allergy, Unknown, 07/18/18) Subjective having pain still with some sob Objective Last 24 Hour Vital Signs Date Time Temp Pulse Resp B/P (MAP) Pulse Ox O2 Delivery O2 Flow Rate FiO2 08/21/18 12:00 97.7 61 20 100/73 (82) 94 08/21/18 10:45 104 20 100 Nasal Cannula 2.0 28 08/21/18 10:35 88 22 96 Nasal Cannula 2.0 28 08/21/18 10:35 28 08/21/18 09:00 Nasal Cannula 2.0 08/21/18 08:29 107/71 08/21/18 08:28 77 107/71 08/21/18 08:28 107/71 08/21/18 08:00 96 08/21/18 08:00 97.0 77 20 107/71 (83) 95 08/21/18 06:58 96 Nasal Cannula 2.0 28 08/21/18 06:58 Nasal Cannula 2.0 28 08/21/18 06:58 Nasal Cannula 2.0 28 08/21/18 06:58 Nasal Cannula 2.0 28 08/21/18 04:00 97.4 104 20 112/76 (88) 95 08/21/18 04:00 102 08/21/18 03:03 102 20 99 Nasal Cannula 2.0 28 08/21/18 02:53 100 20 96 Nasal Cannula 2.0 28 08/21/18 02:53 28 08/21/18 00:00 97.8 107 20 106/79 (88) 92 08/21/18 00:00 111 08/20/18 23:01 Nasal Cannula 08/20/18 23:01 Nasal Cannula 08/20/18 21:00 Nasal Cannula 2.0 08/20/18 20:35 67 139/80 08/20/18 20:00 111 08/20/18 20:00 98.0 67 20 139/80 (99) 96 08/20/18 19:31 99 20 99 Nasal Cannula 2.0 28 08/20/18 19:22 Nasal Cannula 2.0 28 08/20/18 19:21 98 Nasal Cannula 2.0 28 08/20/18 19:21 28 08/20/18 19:21 98 20 98 Nasal Cannula 2.0 28 08/20/18 16:00 96.7 114 20 133/89 (104) 90 08/20/18 16:00 111 08/20/18 15:02 106 20 100 Nasal Cannula 2.0 28 Intake and Output 08/20/18 08/21/18 19:00 07:00 Intake Total 120 ml Output Total 50 ml 400 ml Balance 70 ml -400 ml Intake Oral 120 ml Output Urine Total 50 ml 400 ml Laboratory Tests 08/21/18 05:31: Iron Level 14L, Total Iron Binding Capacity 376, Percent Iron Saturation 4L, Unsaturated Iron Binding 362H, Ferritin 36 08/21/18 06:38: Magnesium Level 1.5L Height (Feet): 5 Height (Inches): 10.00 Weight (Pounds): 193 Objective HEENT: Negative. NECK: Supple. No adenopathy. LUNGS: Moderate breath sounds. Scattered rhonchi and wheezes. CARDIAC: S1 and S2. Slightly tachycardic without murmurs, rubs, or gallops. ABDOMEN: Soft, nontender, and nondistended. EXTREMITIES: No cyanosis or clubbing. There is some edema. NEUROLOGICAL: Very weak overall, but alert. Rodolfo Olivas MD August 21, 2018 14:55
[2018-08-21 16:00] VITALS: BP 113/78
[2018-08-21] MEDS: Montelukast 10mg tablet ORAL SCH (17:17)
--- NOTE | 2018-08-21 19:25 | NUR ---
HAND-OFF: Report given to FRANKLIN Infante. No acute s/s of distress noted.
--- NOTE | 2018-08-21 19:30 | NUR ---
NURSE NOTES: Received report from Ksenia Maldonado RN. Patient in bed AAO X4 with HOB elevated at semi-fowlers with no complaints of acute pain or discomfort noted at this time. Patient able to express needs and wants verbally with no difficulty. Kept clean, dry and comfortable at all times. IV line intact and patent SL. Placed on continuous cardiac monitoring per protocol. Patient has FC for retention; kept intact, patent and draining well. On 2L NC, saturating at 92-95% with no S/S of respiratory distress or SOB noted at this time. Safety precaution in place; siderails X3 up, call light within reach, bed in lowest position, brakes and alarm on at all times. Needs and wants anticipated and attended. Will continue plan of care and monitor for any changes in condition noted. -P200 [address] as ordered
[2018-08-21 20:00] VITALS: BP 118/80
--- NOTE | 2018-08-21 20:11 | NUR ---
NURSE NOTES: Called and left message for Lyudmila Olivas MD regarding Mg lvl of 1.5 and is awaiting call back. Will continue to monitor
[2018-08-21] MEDS ORDERED: NITROSTAT0.4 M1 SL (20:25)
--- NOTE | 2018-08-21 21:04 | General Progress Note ---
Assessment/Plan Status: stable, progressing Assessment/Plan: Assessment - aspiration risk - COPD - intermittent abd pain - weight loss - Iron deficiency Recommendations - pulmonary follow up - stool w/u - IV fe - defer GI w/u until patient more stable Subjective Allergies: Coded Allergies: ERYTHROMYCIN BASE (Unverified Allergy, Unknown, 07/18/18) THIOPENTAL (Unverified Allergy, Unknown, 07/18/18) Uncoded Allergies: ERYTHROMYCIN (Allergy, Unknown, 07/18/18) SODIUM PENATHOL (Allergy, Unknown, 07/18/18) Subjective Feels better breathing better some cough with thin liq noted ST eval noted - rec nectar thickened liquids and chopped diet Objective Last 24 Hour Vital Signs Date Time Temp Pulse Resp B/P (MAP) Pulse Ox O2 Delivery O2 Flow Rate FiO2 08/21/18 19:47 100 18 98 Nasal Cannula 2.0 08/21/18 19:36 100 20 96 Nasal Cannula 2.0 08/21/18 19:36 96 Nasal Cannula 2.0 08/21/18 19:36 Nasal Cannula 2.0 08/21/18 19:36 28 08/21/18 16:00 101 08/21/18 16:00 97.2 102 20 113/78 (90) 100 08/21/18 15:25 102 18 100 Nasal Cannula 2.0 08/21/18 15:15 84 18 97 Nasal Cannula 2.0 08/21/18 15:15 28 08/21/18 12:00 96 08/21/18 12:00 97.7 61 20 100/73 (82) 94 08/21/18 10:45 104 20 100 Nasal Cannula 2.0 08/21/18 10:35 88 22 96 Nasal Cannula 2.0 08/21/18 10:35 28 08/21/18 09:00 Nasal Cannula 2.0 08/21/18 08:29 107/71 08/21/18 08:28 77 107/71 08/21/18 08:28 107/71 08/21/18 08:00 96 08/21/18 08:00 97.0 77 20 107/71 (83) 95 08/21/18 06:58 96 Nasal Cannula 2.0 08/21/18 06:58 Nasal Cannula 2.0 28 08/21/18 06:58 Nasal Cannula 2.0 28 08/21/18 06:58 Nasal Cannula 2.0 28 08/21/18 04:00 97.4 104 20 112/76 (88) 95 08/21/18 04:00 102 08/21/18 03:03 102 20 99 Nasal Cannula 2.0 28 08/21/18 02:53 100 20 96 Nasal Cannula 2.0 28 08/21/18 02:53 28 08/21/18 00:00 97.8 107 20 106/79 (88) 92 08/21/18 00:00 111 08/20/18 23:01 Nasal Cannula 08/20/18 23:01 Nasal Cannula 08/20/18 21:00 Nasal Cannula 2.0 Intake and Output 08/20/18 08/21/18 19:00 07:00 Intake Total 120 ml Output Total 50 ml 400 ml Balance 70 ml -400 ml Intake Oral 120 ml Output Urine Total 50 ml 400 ml Laboratory Tests 08/21/18 05:31: Iron Level 14L, Total Iron Binding Capacity 376, Percent Iron Saturation 4L, Unsaturated Iron Binding 362H, Ferritin 36 08/21/18 06:38: Magnesium Level 1.5L Height (Feet): 5 Height (Inches): 10.00 Weight (Pounds): 193 Objective Debilitated AA woman NCAT supple Chest scattered ronchi RR abd soft ND NT no edema Promise William MD August 21, 2018 21:04
--- NOTE | 2018-08-21 21:30 | Consultation ---
DATE OF CONSULTATION: 08/20/2018 NOTE: INCOMPLETE DICTATION CARDIOLOGY CONSULTATION CONSULTING PHYSICIAN: Ronak Snow M.D. REFERRING PHYSICIAN: Rodolfo Olivas M.D. REASON FOR CONSULTATION: Management of shortness of breath. HISTORY OF PRESENT ILLNESS: The patient is a very unfortunate 68-year-old female, who presents to the hospital with dyspnea and chest pain. Shortness of breath has been progressively worse in the past few days. The patient also had associated productive cough with thick phlegm. She states that breathing treatment has not been helping her chronic obstructive pulmonary disease/asthma. Her cardiovascular history is significant for history of congestive heart failure, hypertension, diabetes, and hyperlipidemia. She states that chest pain is more in the left precordial area, however, it is pleuritic, non-radiating with the intensity of 6/10. The patient was admitted to telemetry bed. Cardiology consultation was made at the request of Dr. Olivas . PAST MEDICAL HISTORY: 1. History of congestive heart failure. 2. History of chronic obstructive pulmonary disease/asthma. 3. History of diabetes mellitus. 4. History of hypertension. 5. Hyperlipidemia. PAST SURGICAL HISTORY: None. ALLERGIES: Erythromycin and thiopental. SOCIAL HISTORY: Denies any tobacco, alcohol, or illicit drug use. REVIEW OF SYSTEMS: HEENT: Denies any headache, diplopia, or blurred vision. CONSTITUTIONAL: Denies any fever, chills, night sweats, or weight loss. CARDIOVASCULAR: Complains of chest pain and shortness of breath. Denies any PND, orthopnea, leg swelling, or syncope. PULMONARY: Productive cough with thick yellow phlegm and shortness of breath, but no hemoptysis. GASTROINTESTINAL: Denies any nausea, vomiting, diarrhea, constipation, abdominal pain, or GI bleed. GENITOURINARY: Has indwelling Velázquez catheter. NEUROLOGY: Denies any motor dysfunction, sensory deficit, or altered speech. LIST OF MEDICATIONS: Allopurinol 100 mg p.o. daily, apixaban 5 mg p.o. twice daily, aspirin 81 mg p.o. daily, Symbicort 160/4.5 inhaler once daily, ciprofloxacin 500 mg twice daily, Lasix 40 mg p.o. daily, 30 mg p.o. twice daily, Levoxyl 150 mcg p.o. daily, losartan 50 mg daily, metformin 1000 mg p.o. daily, minoxidil 2.5 mg p.o. daily, mometasone furoate 0.5 g , Singulair 10 mg p.o. daily, nifedipine 60 mg p.o. daily, omeprazole 40 mg p.o. daily, potassium chloride 8 mEq p.o. daily, tramadol 50 mg p.o. q.6 hours p.r.n. pain, and triamterene hydrochlorothiazide 37.5/25 one capsule once daily. PHYSICAL EXAMINATION: VITAL SIGNS: Blood pressure was 180/110, heart rate was 98, respirations of 18, temperature of 99.0 Fahrenheit, and O2 saturation of 96% on room air on nasal cannula. GENERAL: The patient is a very unfortunate 68-year-old female, who is in no apparent respiratory distress, chronically ill. HEENT: Atraumatic and normocephalic. Anicteric. Pupils are equal, round, and reactive to light and accommodation. Extraocular muscles intact. NECK: JVP is less than 5 cm. No carotid bruit. Carotid upstrokes 2+ bilaterally. CARDIOVASCULAR: Normal S1, S2. Regular rate and rhythm. No murmurs, gallops, or rubs. LUNGS: Diminished breath sounds with rhonchi bilaterally. ABDOMEN: Soft, nontender, and nondistended. No hepatosplenomegaly. Positive bowel sounds. EXTREMITIES: No evidence of edema, clubbing, or cyanosis. DIAGNOSTIC DATA: Chest x-ray showed cardiomegaly with the presence of a pulmonary vascular regurgitation and prominence consistent with congestive heart failure. LABORATORY FINDING: WBC is 5.7, hemoglobin 13.1, hematocrit of 41.9, and platelet count is 271,000. Chemistry shows sodium of 135 potassium is 3.6, chloride 97, bicarbonate 26, BUN of 24, creatinine 0.9, and glucose 129. Calcium is 9.2. Troponin I was 0.048. ProBNP was 9532. INR was 1.7. ASSESSMENT AND PLAN: Ronak Snow M.D. DR: ZOIE JOB#: [id number] CC:
[2018-08-21] MEDS: Carvedilol 6.25mg Tab ORAL SCH (21:35)
--- NOTE | 2018-08-21 23:59 | Cardiology Progress Note ---
Assessment/Plan Assessment/Plan 1. Dilated cardiomyopathy, known case of chronic CHF, now with acute on chronic systolic and diastolic CHF. 2De echo reveals LVEF at 25%. 2. Moderate pericardial effusion with no echo signs of cardiac tamponade. 3. Severe pulmonary HTN Subjective Subjective Atrial fibrillation at rate of 98. Had a short run of V-tach Objective Last 24 Hour Vital Signs Date Time Temp Pulse Resp B/P (MAP) Pulse Ox O2 Delivery O2 Flow Rate FiO2 08/21/18 23:37 98 18 98 Nasal Cannula 2.0 28 08/21/18 23:27 28 08/21/18 23:27 98 20 96 Nasal Cannula 2.0 28 08/21/18 21:35 103 118/80 08/21/18 21:00 Nasal Cannula 2.0 08/21/18 19:47 100 18 98 Nasal Cannula 2.0 08/21/18 19:36 100 20 96 Nasal Cannula 2.0 08/21/18 19:36 96 Nasal Cannula 2.0 08/21/18 19:36 Nasal Cannula 2.0 08/21/18 19:36 28 08/21/18 16:00 101 08/21/18 16:00 97.2 102 20 113/78 (90) 100 08/21/18 15:25 102 18 100 Nasal Cannula 2.0 08/21/18 15:15 84 18 97 Nasal Cannula 2.0 08/21/18 15:15 28 08/21/18 12:00 96 08/21/18 12:00 97.7 61 20 100/73 (82) 94 08/21/18 10:45 104 20 100 Nasal Cannula 2.0 08/21/18 10:35 88 22 96 Nasal Cannula 2.0 08/21/18 10:35 28 08/21/18 09:00 Nasal Cannula 2.0 08/21/18 08:29 107/71 08/21/18 08:28 77 107/71 08/21/18 08:28 107/71 08/21/18 08:00 96 08/21/18 08:00 97.0 77 20 107/71 (83) 95 08/21/18 06:58 96 Nasal Cannula 2.0 08/21/18 06:58 Nasal Cannula 2.0 08/21/18 06:58 Nasal Cannula 2.0 08/21/18 06:58 Nasal Cannula 2.0 28 08/21/18 04:00 97.4 104 20 112/76 (88) 95 08/21/18 04:00 102 08/21/18 03:03 102 20 99 Nasal Cannula 2.0 28 08/21/18 02:53 100 20 96 Nasal Cannula 2.0 28 08/21/18 02:53 28 08/21/18 00:00 97.8 107 20 106/79 (88) 92 08/21/18 00:00 111 Intake and Output 08/20/18 08/21/18 19:00 07:00 Intake Total 120 ml Output Total 50 ml 400 ml Balance 70 ml -400 ml Intake Oral 120 ml Output Urine Total 50 ml 400 ml 2D Echo: 4CDM, LVEF 25%,Global LVHK, Mild LVH, Mod.Peric eff., Pleural eff. RVSP 59 Laboratory Tests Test 08/21/18 05:31 08/21/18 06:38 Iron Level 14 ug/dL (50-175) L Total Iron Binding Capacity 376 ug/dL (250-450) Percent Iron Saturation 4 % (15-50) L Unsaturated Iron Binding 362 ug/dL (112-346) H Ferritin 36 NG/ML (8-388) Magnesium Level 1.5 MG/DL (1.8-2.4) L Microbiology Date/Time Source Procedure Growth Status 08/19/18 21:05 Blood Blood Culture - Preliminary NO GROWTH AFTER 24 HOURS Resulted 08/19/18 20:50 Blood Blood Culture - Preliminary NO GROWTH AFTER 24 HOURS Resulted 08/19/18 21:05 Urine,Clean Catch Urine Culture - Preliminary Gram Negative Bacillus 1 Gram Negative Bacillus 2 Resulted Objective HEENT: Atraumatic and normocephalic. Anicteric. Pupils are equal, round, and reactive to light and accommodation. Extraocular muscles intact. NECK: JVP is less than 5 cm. No carotid bruit. Carotid upstrokes 2+ bilaterally. CARDIOVASCULAR: Normal S1, S2. Regular rate and rhythm. No murmurs, gallops, or rubs. LUNGS: Diminished breath sounds with rhonchi bilaterally. ABDOMEN: Soft, nontender, and nondistended. No hepatosplenomegaly. Positive bowel sounds. EXTREMITIES: No evidence of edema, clubbing, or cyanosis. Ronak Snow MD August 21, 2018 23:59
[2018-08-22] VITALS: BP 112/82
[2018-08-22] MEDS: Albuterol/Ipratropium 3ml neb HHN SCH ×6 (03:26→23:33)
[2018-08-22 04:00] VITALS: BP 115/78
--- NOTE | 2018-08-22 07:15 | NUR ---
NURSE NOTES: Received report from Tami Meyer RN. Patient in bed AAO X4 with HOB elevated at semi-fowlers. Patient denies acute pain or discomfort noted at this time. IV line intact and patent SL. Placed on continuous cardiac monitoring per protocol. Patient has Velázquez Catheter for retention; kept intact, patent and draining well. Patient is on 2L NC; no S/S of respiratory distress or SOB noted at this time. Safety precaution in place; side rails X 3 up, call light within reach, bed in lowest position, brakes and alarm on at all times. Patient is on P200 mattress in [address] as ordered. Afterwards, patient was setup high fowlers for breakfast.
--- NOTE | 2018-08-22 07:30 | General Progress Note ---
Assessment/Plan Problem List: (1) Encounter for generalized patient complaints ICD Codes: Z00.8 - Encounter for other general examination SNOMED: 145744936 (2) CHF (congestive heart failure) ICD Codes: I50.9 - Heart failure, unspecified SNOMED: 48365532 Qualifiers: Qualified Codes: I50.82 - Biventricular heart failure (3) Hypoxia ICD Codes: R09.02 - Hypoxemia SNOMED: 087951663 (4) UTI (urinary tract infection) ICD Codes: N39.0 - Urinary tract infection, site not specified SNOMED: 55782127 Qualifiers: Qualified Codes: N30.00 - Acute cystitis without hematuria (5) COPD exacerbation ICD Codes: J44.1 - Chronic obstructive pulmonary disease with (acute) exacerbation SNOMED: 666735420 Status: stable, progressing Assessment/Plan: iv abx follow up cultures- urine with GNR resp rx PPI xarelto monitor for bleeding steroids- wean per pulm xray shoulders Subjective ROS Limited/Unobtainable: No Constitutional: Reports: weakness HEENT: Reports: no symptoms Cardiovascular: Reports: no symptoms Respiratory: Reports: cough Gastrointestinal/Abdominal: Reports: no symptoms Genitourinary: Reports: no symptoms Neurologic/Psychiatric: Reports: pre-existing deficit Endocrine: Reports: no symptoms Hematologic/Lymphatic: Reports: no symptoms Allergies: Coded Allergies: ERYTHROMYCIN BASE (Unverified Allergy, Unknown, 07/18/18) THIOPENTAL (Unverified Allergy, Unknown, 07/18/18) Uncoded Allergies: ERYTHROMYCIN (Allergy, Unknown, 07/18/18) SODIUM PENATHOL (Allergy, Unknown, 07/18/18) All Systems: reviewed and negative except above Subjective no events. c/o bilateral shoulder pain. no fever or chills. no sob Objective Last 24 Hour Vital Signs Date Time Temp Pulse Resp B/P (MAP) Pulse Ox O2 Delivery O2 Flow Rate FiO2 08/22/18 04:00 97.2 83 17 115/78 (90) 95 08/22/18 04:00 90 08/22/18 03:36 88 18 98 Nasal Cannula 2.0 28 08/22/18 03:26 93 20 93 Nasal Cannula 2.0 28 08/22/18 03:26 28 08/22/18 00:00 97.8 98 18 112/82 (92) 95 08/22/18 00:00 98 08/21/18 23:37 98 18 98 Nasal Cannula 2.0 28 08/21/18 23:27 28 08/21/18 23:27 98 20 96 Nasal Cannula 2.0 28 08/21/18 21:35 103 118/80 08/21/18 21:00 Nasal Cannula 2.0 08/21/18 20:00 100 08/21/18 20:00 97.8 103 18 118/80 (93) 99 08/21/18 19:47 100 18 98 Nasal Cannula 2.0 28 08/21/18 19:36 100 20 96 Nasal Cannula 2.0 28 08/21/18 19:36 96 Nasal Cannula 2.0 28 08/21/18 19:36 Nasal Cannula 2.0 28 08/21/18 19:36 28 08/21/18 16:00 101 08/21/18 16:00 97.2 102 20 113/78 (90) 100 08/21/18 15:25 102 18 100 Nasal Cannula 2.0 28 08/21/18 15:15 84 18 97 Nasal Cannula 2.0 28 08/21/18 15:15 28 08/21/18 12:00 96 08/21/18 12:00 97.7 61 20 100/73 (82) 94 08/21/18 10:45 104 20 100 Nasal Cannula 2.0 08/21/18 10:35 88 22 96 Nasal Cannula 2.0 28 08/21/18 10:35 28 08/21/18 09:00 Nasal Cannula 2.0 08/21/18 08:29 107/71 08/21/18 08:28 77 107/71 08/21/18 08:28 107/71 08/21/18 08:00 96 08/21/18 08:00 97.0 77 20 107/71 (83) 95 Intake and Output 08/21/18 08/22/18 18:59 06:59 Output Total 500 ml Balance -500 ml Output Urine Total 500 ml Height (Feet): 5 Height (Inches): 10.00 Weight (Pounds): 224 General Appearance: WD/WN, alert Cardiovascular: normal rate, regular rhythm Respiratory/Chest: chest wall non-tender, lungs clear, normal breath sounds, no respiratory distress, no accessory muscle use Abdomen: normal bowel sounds, non tender, soft, no organomegaly, no mass Edema: no edema noted Arm (L), no edema noted Arm (R), no edema noted Leg (L), no edema noted Leg (R), no edema noted Pedal (L), no edema noted Pedal (R), no edema noted Generalized Prem Robledo MD August 22, 2018 07:30
--- NOTE | 2018-08-22 07:56 | NUR ---
HAND-OFF: Report given to Ksenia Cade RN. PAtient in stable condition. Will continue plan of care.
[2018-08-22 08:00] VITALS: BP 116/79
[2018-08-22] MEDS: Allopurinol 100mg Tab ORAL SCH (08:57)
[2018-08-22] MEDS: Spironolactone 25mg tab ORAL SCH (08:57)
[2018-08-22] MEDS: Eliquis 5mg tablet ORAL SCH (08:57)
[2018-08-22] MEDS: Carvedilol 6.25mg Tab ORAL SCH (08:57)
[2018-08-22] MEDS: Furosemide 40mg tab ORAL SCH (08:57)
[2018-08-22] MEDS: Aspirin Baby 81mg ORAL SCH (08:57)
[2018-08-22] MEDS: Losartan 50mg tab ORAL SCH (08:57)
[2018-08-22] MEDS: Solu-MEDROL 125mg Inj IVP SCH (08:58)
[2018-08-22] MEDS: metFORMIN 500mg tab ORAL SCH ×2 (09:00→17:58)
[2018-08-22] MEDS: cefTRIAXone 1 GM in D5W 55 ML IVPB SCH (09:06)
--- NOTE | 2018-08-22 10:42 | NUR ---
CASE MANAGEMENT:REVIEW 08/22/18 SI: CHF. COPD EXACERBATION. UTI 97.9 96 18 116/79 93% ON 2L/NC IS: IV SOLUMEDROL Q12 IV ROCEPHIN Q24 IV VENOFER QHS COREG PO Q12 ALDACTONE PO QD SINGULAR PO QPM ASA PO QD LASIX PO QD DUONEB HHN Q4HRS RTC : TELEMETRY STATUS DCP: PATIENT IS FROM HOME PLAN: XRAY BILATERAL SHOULDERS
--- NOTE | 2018-08-22 10:44 | NUR ---
NURSE NOTES: Shayna from Microbiology states patient is positive for MRSA in Nares. Dr. Robledo was made aware and patient is on contact precaution.
[2018-08-22] MEDS: traMADol 50mg tab ORAL PRN (11:13)
[2018-08-22 12:00] VITALS: BP 121/81
--- NOTE | 2018-08-22 14:21 | Diagnostic Imaging Report ---
Indication: left shoulder pain Findings: 3 views of the left shoulder were obtained. Alignment of the left shoulder is normal. No acute fracture is identified. Soft tissues are unremarkable. Impression: No acute injury
--- NOTE | 2018-08-22 14:31 | Diagnostic Imaging Report ---
Indication: Right shoulder pain Findings: 3 views of the right shoulder were obtained. No acute fractures, malalignment, erosions or periostitis are identified. Bones are osteopenic. Soft tissues are unremarkable. Impression: Negative for acute injury
--- NOTE | 2018-08-22 14:37 | Pulmonology Progress Note ---
Assessment/Plan Assessment/Plan Pulmonary Progress Note Status: stable, progressing Assessment/Plan: 1. Chronic obstructive pulmonary disease with acute exacerbation. 2. History of congestive heart failure. 3. Lactic acidemia of unclear significance. 4. Hyponatremia. 5. Mild azotemia. 6. Mild protein-calorie malnutrition. PLAN increase pain management Wean steroids as tolerated monitor for change folllow up labs consider heme evaluation refusing snf losing weight and would benefit from additional rehab impression, plan, and exam edited and reviewed in detail care discussed with RN Subjective Allergies: Coded Allergies: ERYTHROMYCIN BASE (Unverified Allergy, Unknown, 07/18/18) THIOPENTAL (Unverified Allergy, Unknown, 07/18/18) Uncoded Allergies: ERYTHROMYCIN (Allergy, Unknown, 07/18/18) SODIUM PENATHOL (Allergy, Unknown, 07/18/18) Subjective Less sob Objective Vital Signs Noted Laboratory Tests 08/21/18 05:31: Iron Level 14L, Total Iron Binding Capacity 376, Percent Iron Saturation 4L, Unsaturated Iron Binding 362H, Ferritin 36 08/21/18 06:38: Magnesium Level 1.5L Height (Feet): 5 Height (Inches): 10.00 Weight (Pounds): 193 Objective HEENT: Negative. NECK: Supple. No adenopathy. LUNGS: Moderate breath sounds. Scattered rhonchi and wheezes. CARDIAC: S1 and S2. Slightly tachycardic without murmurs, rubs, or gallops. ABDOMEN: Soft, nontender, and nondistended. EXTREMITIES: No cyanosis or clubbing. There is some edema. NEUROLOGICAL: Very weak overall, but alert. Subjective ROS Limited/Unobtainable: No Allergies: Coded Allergies: ERYTHROMYCIN BASE (Unverified Allergy, Unknown, 07/18/18) THIOPENTAL (Unverified Allergy, Unknown, 07/18/18) Uncoded Allergies: ERYTHROMYCIN (Allergy, Unknown, 07/18/18) SODIUM PENATHOL (Allergy, Unknown, 07/18/18) Objective Last 24 Hour Vital Signs Date Time Temp Pulse Resp B/P (MAP) Pulse Ox O2 Delivery O2 Flow Rate FiO2 08/22/18 12:00 97.9 08/22/18 12:00 97.3 93 18 121/81 (94) 96 08/22/18 11:05 89 20 96 Nasal Cannula 2.0 28 08/22/18 10:56 97 20 93 Nasal Cannula 2.0 28 08/22/18 09:00 Nasal Cannula 2.0 08/22/18 08:57 89 116/79 08/22/18 08:57 116/79 08/22/18 08:13 89 08/22/18 08:00 97.9 96 18 116/79 (91) 93 08/22/18 07:57 93 18 94 Nasal Cannula 2.0 28 08/22/18 07:48 93 20 90 Nasal Cannula 2.0 28 08/22/18 07:48 90 Nasal Cannula 2.0 28 08/22/18 07:48 Nasal Cannula 2.0 28 08/22/18 04:00 97.2 83 17 115/78 (90) 95 08/22/18 04:00 90 08/22/18 03:36 88 18 98 Nasal Cannula 2.0 08/22/18 03:26 93 20 93 Nasal Cannula 2.0 08/22/18 03:26 28 08/22/18 00:00 97.8 98 18 112/82 (92) 95 08/22/18 00:00 98 08/21/18 23:37 98 18 98 Nasal Cannula 2.0 08/21/18 23:27 28 08/21/18 23:27 98 20 96 Nasal Cannula 2.0 08/21/18 21:35 103 118/80 08/21/18 21:00 Nasal Cannula 2.0 08/21/18 20:00 100 08/21/18 20:00 97.8 103 18 118/80 (93) 99 08/21/18 19:47 100 18 98 Nasal Cannula 2.0 08/21/18 19:36 100 20 96 Nasal Cannula 2.0 08/21/18 19:36 96 Nasal Cannula 2.0 08/21/18 19:36 Nasal Cannula 2.0 28 08/21/18 19:36 28 08/21/18 16:00 101 08/21/18 16:00 97.2 102 20 113/78 (90) 100 08/21/18 15:25 102 18 100 Nasal Cannula 2.0 28 08/21/18 15:15 84 18 97 Nasal Cannula 2.0 28 08/21/18 15:15 28 Intake and Output 08/21/18 08/22/18 19:00 07:00 Output Total 500 ml Balance -500 ml Output Urine Total 500 ml Microbiology Date/Time Source Procedure Growth Status 08/19/18 21:05 Blood Blood Culture - Preliminary NO GROWTH AFTER 48 HOURS Resulted 08/19/18 20:50 Blood Blood Culture - Preliminary NO GROWTH AFTER 48 HOURS Resulted 08/19/18 21:53 Nasal Nares MRSA Culture - Final Staphylococcus Aureus - Mrsa Complete 08/19/18 21:05 Urine,Clean Catch Urine Culture - Preliminary Escherichia Coli Streptococcus Species Resulted 08/19/18 21:53 Rectum - Final NO CARBAPENEM-RESISTANT ENTEROBACTERI... Complete 08/19/18 21:53 Rectum VRE Culture - Final NO VANCOMYCIN RESISTANT ENTEROCOCCUS ... Complete Current Medications Medications (Trade) Dose Ordered Sig/[place] Route PRN Reason Start Time Stop Time Status Last Admin Dose Admin Acetaminophen/ Hydrocodone Bitart ([place] 10/325) 1 tab Q4H PRN ORAL Severe Pain (Pain Scale 7-10) 08/20/18 10:00 08/27/18 09:59 Acetaminophen/ Hydrocodone Bitart ([place] 5/325) 1 tab Q4H PRN ORAL Moderate Pain (Pain Scale 4-6) 08/20/18 10:00 08/27/18 09:59 Albuterol/ Ipratropium (Albuterol/ Ipratropium) 3 ml Q4HRT HHN 08/20/18 07:00 08/25/18 06:59 08/22/18 10:53 Albuterol/ Ipratropium (Albuterol/ Ipratropium) 3 ml Q4HRT PRN HHN Shortness of Breath 08/20/18 06:45 08/25/18 06:44 Allopurinol (Zyloprim) 100 mg DAILY ORAL 08/20/18 09:00 09/19/18 08:59 08/22/18 08:57 Apixaban (Eliquis) 5 mg BID ORAL 08/20/18 09:00 09/19/18 08:59 08/22/18 08:57 Aspirin (ASA) 81 mg DAILY ORAL 08/20/18 09:00 09/19/18 08:59 08/22/18 08:57 Carvedilol (Coreg) 6.25 mg EVERY 12 HOURS ORAL 08/21/18 21:00 09/20/18 20:59 08/22/18 08:57 Ceftriaxone Sodium 1 gm/ Dextrose 55 ml @ 110 mls/hr DAILY IVPB 08/20/18 09:00 08/27/18 08:59 08/22/18 09:06 Furosemide (Lasix) 40 mg DAILY ORAL 08/20/18 09:00 09/19/18 08:59 08/22/18 08:57 Iron Sucrose 100 mg/Sodium Chloride 60 ml @ 240 mls/hr BEDTIME IV 08/22/18 21:00 08/26/18 21:14 Levothyroxine Sodium (Synthroid) 150 mcg ACBREAKFAST ORAL 08/20/18 09:00 09/19/18 08:59 08/22/18 05:17 Losartan Potassium (Cozaar) 50 mg DAILY ORAL 08/20/18 09:00 09/19/18 08:59 08/22/18 08:57 Metformin HCl (Glucophage) 500 mg BID ORAL 08/20/18 09:00 09/19/18 08:59 08/20/18 17:18 Methylprednisolone Sodium Succinate (Solu-MEDROL) 60 mg EVERY 12 HOURS IVP 08/20/18 09:00 09/19/18 08:59 08/22/18 08:58 Montelukast Sodium (Singulair) 10 mg QPM ORAL 08/20/18 16:30 09/19/18 16:29 08/21/18 17:17 Spironolactone (Aldactone) 25 mg DAILY ORAL 08/21/18 14:15 09/20/18 14:14 08/22/18 08:57 Tramadol HCl (Ultram) 50 mg Q6H PRN ORAL Mild Pain (Pain Scale 1-3) 08/20/18 10:30 08/27/18 10:29 08/22/18 11:13 Car Joseph MD August 22, 2018 14:37
--- NOTE | 2018-08-22 14:46 | NUR ---
NURSE NOTES: Noticed blood in urine of bustillo catheter. Notified Dr. Robledo. Orders entered. labs will be sent.
--- NOTE | 2018-08-22 15:02 | NUR ---
RD ASSESSMENT & RECOMMENDATIONS SEE CARE ACTIVITY FOR COMPLETE ASSESSMENT DAILY ESTIMATED NEEDS: Needs based on Wound, cardiac/ 73kg abw 25-30 kcals/kg 7626-2972 total kcals 1.25-1.5 g protein/kg 91-109 g total protein 20-22 mL/kg 5454-5155 total fluid mLs NUTRITION DIAGNOSIS: * Increased kcal/prot needs R/T wound healing as evidenced by pt admitted w/ sacral resolving open wound per WC specialist. * Swallowing difficulty R/T dysphagia as evidenced by pt on mech soft chopped, NTL per [facility]IPPER rec. CURRENT DIET:CCHO MED, mech soft chopped, NTL PO DIET RECOMMENDATIONS: CCHO MED, LOW NA/ texture per [facility] ADDITIONAL RECOMMENDATIONS: * Calibrated bedscale wt for accurate CBW (now w/ added P200 mattress) -> daily wt monitoring per policy: CHF dx * Wound healing: add MVI x 1, Vit C 250mg QD, Srikanth 1pkt BID * Updated CBC and BMP as able * Monitor lytes closely w/ diuretics, replete as needed (low mag) * Monitor BGs closely while on solumedrol
[2018-08-22 16:00] VITALS: BP 125/77
[2018-08-22] MEDS: Montelukast 10mg tablet ORAL SCH (16:30)
[2018-08-22 16:46] LABS: APPEARANCE,URINE TURBID; BILIRUBIN, URINE NEGATIVE (NEGATIVE); GLUCOSE, URINE (UA) NEGATIVE (NEGATIVE); KETONES,URINE NEGATIVE (NEGATIVE); LEUKOCYTE ESTERASE ,URINE 3+ (NEGATIVE); NITRITE,URINE NEGATIVE (NEGATIVE); PH,URINE 6 (4.5-8.0); PROTEIN,URINE 3+ (NEGATIVE); UROBILINOGEN,URINE NORMAL MG/DL (0.0-1.0)
[2018-08-22 16:48] LABS: COLOR,URINE RED
--- NOTE | 2018-08-22 17:04 | General Progress Note ---
Assessment/Plan Status: stable, progressing Assessment/Plan: Assessment - aspiration risk - COPD - intermittent abd pain - weight loss - Iron deficiency Recommendations - pulmonary follow up - stool w/u - IV fe - defer GI w/u until patient more stable Subjective Allergies: Coded Allergies: ERYTHROMYCIN BASE (Unverified Allergy, Unknown, 07/18/18) THIOPENTAL (Unverified Allergy, Unknown, 07/18/18) Uncoded Allergies: ERYTHROMYCIN (Allergy, Unknown, 07/18/18) SODIUM PENATHOL (Allergy, Unknown, 07/18/18) Subjective Feels better advised re aspiration risk swallow safety instructions given Objective Last 24 Hour Vital Signs Date Time Temp Pulse Resp B/P (MAP) Pulse Ox O2 Delivery O2 Flow Rate FiO2 08/22/18 15:27 92 20 94 Nasal Cannula 2.0 28 08/22/18 12:00 97.9 08/22/18 12:00 97.3 93 18 121/81 (94) 96 08/22/18 11:05 89 20 96 Nasal Cannula 2.0 08/22/18 10:56 97 20 93 Nasal Cannula 2.0 28 08/22/18 09:00 Nasal Cannula 2.0 08/22/18 08:57 89 116/79 08/22/18 08:57 116/79 08/22/18 08:13 89 08/22/18 08:00 97.9 96 18 116/79 (91) 93 08/22/18 07:57 93 18 94 Nasal Cannula 2.0 28 08/22/18 07:48 93 20 90 Nasal Cannula 2.0 08/22/18 07:48 90 Nasal Cannula 2.0 08/22/18 07:48 Nasal Cannula 2.0 28 08/22/18 04:00 97.2 83 17 115/78 (90) 95 08/22/18 04:00 90 08/22/18 03:36 88 18 98 Nasal Cannula 2.0 28 08/22/18 03:26 93 20 93 Nasal Cannula 2.0 28 08/22/18 03:26 28 08/22/18 00:00 97.8 98 18 112/82 (92) 95 08/22/18 00:00 98 08/21/18 23:37 98 18 98 Nasal Cannula 2.0 28 08/21/18 23:27 28 5/14/19 23:27 98 20 96 Nasal Cannula 2.0 28 08/21/18 21:35 103 118/80 08/21/18 21:00 Nasal Cannula 2.0 08/21/18 20:00 100 08/21/18 20:00 97.8 103 18 118/80 (93) 99 08/21/18 19:47 100 18 98 Nasal Cannula 2.0 28 08/21/18 19:36 100 20 96 Nasal Cannula 2.0 28 08/21/18 19:36 96 Nasal Cannula 2.0 28 08/21/18 19:36 Nasal Cannula 2.0 28 08/21/18 19:36 28 Intake and Output 08/21/18 08/22/18 19:00 07:00 Output Total 500 ml Balance -500 ml Output Urine Total 500 ml Laboratory Tests 08/22/18 14:00: Urine Color Red, Urine Appearance Turbid, Urine pH 6, Urine Specific [place] 1.015, Urine Protein 3+H, Urine Glucose (UA) Negative, Urine Ketones Negative, Urine Blood 5+H, Urine Nitrite Negative, Urine Bilirubin Negative, Urine Urobilinogen Normal, Urine Leukocyte Esterase 3+H, Urine RBC TntcH, Urine WBC 2- 4, Urine Squamous Epithelial Cells Occasional, Urine Bacteria Few Height (Feet): 5 Height (Inches): 10.00 Weight (Pounds): 224 Objective Debilitated AA woman NCAT supple Chest scattered ronchi RR abd soft ND NT no edema Promise William MD August 22, 2018 17:04
[2018-08-22] MEDS ORDERED: [UNRECOGNIZED DRUG - REMARK] (18:11)
[2018-08-22] MEDS ORDERED: BIOTIN1 MG PO (18:11)
[2018-08-22] MEDS ORDERED: MAGNESIUM250 M2 PO (18:11)
[2018-08-22] MEDS ORDERED: HYDROXYCHLOROQ200 M1 PO (18:11)
[2018-08-22] MEDS ORDERED: LINZESS145 MCG PO (18:11)
[2018-08-22] MEDS ORDERED: VENTOLIN HFA18 GM INH (18:11)
[2018-08-22] MEDS ORDERED: NITROSTAT0.4 M1 SL (18:11)
[2018-08-22] MEDS ORDERED: B COMPLEX1 EACH ORAL (18:11)
[2018-08-22] MEDS ORDERED: SPIRIVA18 MCG INH (18:11)
[2018-08-22] MEDS ORDERED: MULTIVITAMINS1 EA14 PO (18:11)
[2018-08-22] MEDS ORDERED: LATANOPROST2.5 ML BOTH EYES (18:11)
[2018-08-22] MEDS ORDERED: EMLA CREAM30 GM TOPIC (18:11)
[2018-08-22] MEDS ORDERED: FREESTYLE LITE1 EAC1 MC (18:11)
[2018-08-22] MEDS ORDERED: TRIAMCINOLONE A15 GM TP (18:11)
[2018-08-22] MEDS ORDERED: CALCIUM + VITA1 EAC1 PO (18:11)
--- NOTE | 2018-08-22 19:40 | NUR ---
NURSE NOTES: Received pt from FRANKLIN Ramsey. pt in bed resting, no acute distress noted, no c/o pain at this time. bustillo intact with red color urine, pt's dinner tray at bedside pt refusing eating, bed locked and lowest position, bed side rial up x2, call light within reach, will round pt hourly to ensure pt's safety.
--- NOTE | 2018-08-22 19:42 | NUR ---
HAND-OFF: Report given to FRANKLIN Sue. Patient is resting in bed. Was repositioned. Velázquez intact and benefits coordinator red/yellow urine. Patient refused to eat lunch and dinner.
[2018-08-22 20:00] VITALS: BP 116/75
--- NOTE | 2018-08-22 20:06 | Cardiology Progress Note ---
Assessment/Plan Assessment/Plan 1. Dilated cardiomyopathy, known case of chronic CHF, now with acute on chronic systolic and diastolic CHF. 2De echo reveals LVEF at 25%. Continue GDMT. 2. Moderate pericardial effusion with no echo signs of cardiac tamponade. 3. Severe pulmonary HTN Subjective Subjective Sinus rhythm at 90 with single VPC. Objective Last 24 Hour Vital Signs Date Time Temp Pulse Resp B/P (MAP) Pulse Ox O2 Delivery O2 Flow Rate FiO2 08/22/18 16:00 93 08/22/18 16:00 97.8 87 18 125/77 (93) 94 08/22/18 15:36 96 20 98 Nasal Cannula 2.0 28 08/22/18 15:27 92 20 94 Nasal Cannula 2.0 28 08/22/18 15:14 93 08/22/18 12:00 97.9 08/22/18 12:00 97.3 93 18 121/81 (94) 96 08/22/18 11:52 89 08/22/18 11:05 89 20 96 Nasal Cannula 2.0 08/22/18 10:56 97 20 93 Nasal Cannula 2.0 28 08/22/18 09:00 Nasal Cannula 2.0 08/22/18 08:57 89 116/79 08/22/18 08:57 116/79 08/22/18 08:13 89 08/22/18 08:00 97.9 96 18 116/79 (91) 93 08/22/18 07:57 93 18 94 Nasal Cannula 2.0 08/22/18 07:48 93 20 90 Nasal Cannula 2.0 08/22/18 07:48 90 Nasal Cannula 2.0 08/22/18 07:48 Nasal Cannula 2.0 28 08/22/18 04:00 97.2 83 17 115/78 (90) 95 08/22/18 04:00 90 08/22/18 03:36 88 18 98 Nasal Cannula 2.0 08/22/18 03:26 93 20 93 Nasal Cannula 2.0 08/22/18 03:26 28 08/22/18 00:00 97.8 98 18 112/82 (92) 95 08/22/18 00:00 98 08/21/18 23:37 98 18 98 Nasal Cannula 2.0 28 08/21/18 23:27 28 08/21/18 23:27 98 20 96 Nasal Cannula 2.0 28 08/21/18 21:35 103 118/80 08/21/18 21:00 Nasal Cannula 2.0 Intake and Output 08/21/18 08/22/18 19:00 07:00 Output Total 500 ml Balance -500 ml Output Urine Total 500 ml 2D Echo: 4CDM, LVEF 25%,Global LVHK, Mild LVH, Mod.Peric eff., Pleural eff. RVSP 59 Laboratory Tests Test 08/22/18 14:00 Urine Color Red Urine Appearance Turbid Urine pH 6 (4.5-8.0) Urine Specific [place] 1.015 (1.005-1.035) Urine Protein 3+ (NEGATIVE) H Urine Glucose (UA) Negative (NEGATIVE) Urine Ketones Negative (NEGATIVE) Urine Blood 5+ (NEGATIVE) H Urine Nitrite Negative (NEGATIVE) Urine Bilirubin Negative (NEGATIVE) Urine Urobilinogen Normal MG/DL (0.0-1.0) Urine Leukocyte Esterase 3+ (NEGATIVE) H Urine RBC Tntc /HPF (0 - 2) H Urine WBC 2-4 /HPF (0 - 2) Urine Squamous Epithelial Cells Occasional /LPF Urine Bacteria Few /HPF (NONE) Microbiology Date/Time Source Procedure Growth Status 08/19/18 21:05 Blood Blood Culture - Preliminary NO GROWTH AFTER 48 HOURS Resulted 08/19/18 20:50 Blood Blood Culture - Preliminary NO GROWTH AFTER 48 HOURS Resulted 08/19/18 21:53 Nasal Nares MRSA Culture - Final Staphylococcus Aureus - Mrsa Complete 08/19/18 21:05 Urine,Clean Catch Urine Culture - Preliminary Escherichia Coli Streptococcus Species Resulted 08/19/18 21:53 Rectum - Final NO CARBAPENEM-RESISTANT ENTEROBACTERI... Complete 08/19/18 21:53 Rectum VRE Culture - Final NO VANCOMYCIN RESISTANT ENTEROCOCCUS ... Complete Objective HEENT: Atraumatic and normocephalic. Anicteric. Pupils are equal, round, and reactive to light and accommodation. Extraocular muscles intact. NECK: JVP is less than 5 cm. No carotid bruit. Carotid upstrokes 2+ bilaterally. CARDIOVASCULAR: Normal S1, S2. Regular rate and rhythm. No murmurs, gallops, or rubs. LUNGS: Diminished breath sounds with rhonchi bilaterally. ABDOMEN: Soft, nontender, and nondistended. No hepatosplenomegaly. Positive bowel sounds. EXTREMITIES: No evidence of edema, clubbing, or cyanosis. Ronak Snow MD August 22, 2018 20:06
[2018-08-22] MEDS ORDERED: Solu-MEDROL 40mg Inj IVP SCH (21:00)
[2018-08-22] MEDS: Carvedilol 12.5mg tab ORAL SCH (21:41)
--- NOTE | 2018-08-22 22:00 | NUR ---
NURSE NOTES: pt's daughter at bedside pt stable will continue to monitor.
[2018-08-22] MEDS: Iron Sucrose 100 MG in NS 55 ML IV SCH (23:02)
[2018-08-23] VITALS: BP 127/87
--- NOTE | 2018-08-23 | NUR ---
NURSE NOTES: pt in bed resting, no change in condition. will continue to monitor to ensure pt's safety.
[2018-08-23] MEDS: Albuterol/Ipratropium 3ml neb HHN SCH ×6 (03:04→23:27)
[2018-08-23 04:00] VITALS: BP 114/79
--- NOTE | 2018-08-23 04:28 | NUR ---
NURSE NOTES: pt in bed, turning pt every two hours, no change in condition, no c/o pain or discomfort. bed locked and lowest position, Bed's side rails up x2. call light within reach. will continue to make rounds hourly to ensure pt's safety.
[2018-08-23] MEDS: Guaifenesin/DM 10ml syrup ORAL PRN ×2 (05:36→15:00)
--- NOTE | 2018-08-23 06:49 | NUR ---
NURSE NOTES: pt remains in stable condition no change in condition, no acute distress,no c/o pain. sacrum dressing changed, pt was turned every two hours, all need met during my shift, bed locked and lowest position, bedside rail up x2, call light within reach, will endorse care to incoming nurse.
--- NOTE | 2018-08-23 07:23 | NUR ---
HAND-OFF: Report given to FRANKLIN Ramsey.
--- NOTE | 2018-08-23 07:45 | NUR ---
NURSE NOTES: Patient is resting at in bed. Patient is AAOx4. Patient is on equipment monitor phototypesetting per protocol. Patient is on 2L NC. Patient had diminished breath sounds and nonproductive cough. Patient has bustillo catheter that is patent and has dark red/brown urine. Bed locked and lowest position, bedside rail up x2, call light within reach. Spoke to Dr. Robledo about daughter wishes to speak to him and medication list. IN addition, bustillo catheter update. Dr. Robledo is aware.
--- NOTE | 2018-08-23 07:45 | General Progress Note ---
Assessment/Plan Problem List: (1) Encounter for generalized patient complaints ICD Codes: Z00.8 - Encounter for other general examination SNOMED: 037758693 (2) CHF (congestive heart failure) ICD Codes: I50.9 - Heart failure, unspecified SNOMED: 11614725 Qualifiers: Qualified Codes: I50.82 - Biventricular heart failure (3) Hypoxia ICD Codes: R09.02 - Hypoxemia SNOMED: 689993166 (4) UTI (urinary tract infection) ICD Codes: N39.0 - Urinary tract infection, site not specified SNOMED: 91372177 Qualifiers: Qualified Codes: N30.00 - Acute cystitis without hematuria (5) COPD exacerbation ICD Codes: J44.1 - Chronic obstructive pulmonary disease with (acute) exacerbation SNOMED: 044354179 Status: stable, progressing Assessment/Plan: iv abx UCx noted. resp rx PPI xarelto resumed. monitor for bleeding steroids- wean per pulm xray shoulders unremarkable Subjective ROS Limited/Unobtainable: No Constitutional: Reports: malaise, weakness HEENT: Reports: no symptoms Cardiovascular: Reports: no symptoms Respiratory: Reports: cough Gastrointestinal/Abdominal: Reports: no symptoms Genitourinary: Reports: no symptoms Neurologic/Psychiatric: Reports: no symptoms Endocrine: Reports: no symptoms Hematologic/Lymphatic: Reports: no symptoms Allergies: Coded Allergies: ERYTHROMYCIN BASE (Unverified Allergy, Unknown, 07/18/18) THIOPENTAL (Unverified Allergy, Unknown, 07/18/18) Uncoded Allergies: ERYTHROMYCIN (Allergy, Unknown, 07/18/18) SODIUM PENATHOL (Allergy, Unknown, 07/18/18) All Systems: reviewed and negative except above Subjective no events. c/o bilateral shoulder pain. no fever or chills. no sob had hematuria. anticoag held. shoulder xray neg Objective Last 24 Hour Vital Signs Date Time Temp Pulse Resp B/P (MAP) Pulse Ox O2 Delivery O2 Flow Rate FiO2 08/23/18 07:18 88 20 92 Nasal Cannula 2.0 28 08/23/18 07:10 Nasal Cannula 2.0 28 08/23/18 07:10 93 Nasal Cannula 2.0 28 08/23/18 07:05 87 20 93 Nasal Cannula 2.0 28 08/23/18 04:00 97.7 93 18 114/79 (91) 97 08/23/18 04:00 88 08/23/18 03:14 92 20 96 Nasal Cannula 2.0 28 08/23/18 03:04 93 20 94 Nasal Cannula 2.0 28 08/23/18 00:00 97.9 88 18 127/87 (100) 98 08/23/18 00:00 90 08/22/18 23:44 89 18 96 Nasal Cannula 2.0 28 08/22/18 23:33 89 18 94 Nasal Cannula 2.0 28 08/22/18 21:41 91 116/75 08/22/18 21:00 Nasal Cannula 2.0 08/22/18 20:17 91 18 97 Nasal Cannula 2.0 28 08/22/18 20:07 Nasal Cannula 2.0 28 08/22/18 20:07 90 18 95 Nasal Cannula 2.0 28 08/22/18 20:07 95 Nasal Cannula 2.0 28 08/22/18 20:00 96.7 89 18 116/75 (89) 95 08/22/18 20:00 94 08/22/18 16:00 93 08/22/18 16:00 97.8 87 18 125/77 (93) 94 08/22/18 15:36 96 20 98 Nasal Cannula 2.0 28 08/22/18 15:27 92 20 94 Nasal Cannula 2.0 08/22/18 15:14 93 08/22/18 12:00 97.9 08/22/18 12:00 97.3 93 18 121/81 (94) 96 08/22/18 11:52 89 08/22/18 11:05 89 20 96 Nasal Cannula 2.0 08/22/18 10:56 97 20 93 Nasal Cannula 2.0 08/22/18 09:00 Nasal Cannula 2.0 08/22/18 08:57 89 116/79 08/22/18 08:57 116/79 08/22/18 08:13 89 08/22/18 08:00 97.9 96 18 116/79 (91) 93 08/22/18 07:57 93 18 94 Nasal Cannula 2.0 08/22/18 07:48 93 20 90 Nasal Cannula 2.0 28 08/22/18 07:48 90 Nasal Cannula 2.0 28 08/22/18 07:48 Nasal Cannula 2.0 28 Intake and Output 08/22/18 08/23/18 18:59 06:59 Intake Total 915 ml 260 ml Output Total 400 ml 1000 ml Balance 515 ml -740 ml Intake Oral 860 ml IV Total 55 ml 260 ml Output Urine Total 400 ml 1000 ml Laboratory Tests 08/22/18 14:00: Urine Color Red, Urine Appearance Turbid, Urine pH 6, Urine Specific [place] 1.015, Urine Protein 3+H, Urine Glucose (UA) Negative, Urine Ketones Negative, Urine Blood 5+H, Urine Nitrite Negative, Urine Bilirubin Negative, Urine Urobilinogen Normal, Urine Leukocyte Esterase 3+H, Urine RBC TntcH, Urine WBC 2- 4, Urine Squamous Epithelial Cells Occasional, Urine Bacteria Few 08/23/18 06:00: Magnesium Level 2.1 Height (Feet): 5 Height (Inches): 10.00 Weight (Pounds): 224 Objective General Appearance: WD/WN, alert Cardiovascular: normal rate, regular rhythm Respiratory/Chest: chest wall non-tender, lungs clear, normal breath sounds, no respiratory distress, no accessory muscle use Abdomen: normal bowel sounds, non tender, soft, no organomegaly, no mass Edema: no edema noted Arm (L), no edema noted Arm (R), no edema noted Leg (L), no edema noted Leg (R), no edema noted Pedal (L), no edema noted Pedal (R), no edema noted Generalized Prem Robledo MD August 23, 2018 07:45
[2018-08-23 08:00] VITALS: BP 115/85
--- NOTE | 2018-08-23 08:10 | General Progress Note ---
Assessment/Plan Status: stable, progressing Assessment/Plan: 1. Chronic obstructive pulmonary disease with acute exacerbation. 2. History of congestive heart failure. 3. Lactic acidemia of unclear significance. 4. Hyponatremia. 5. Mild azotemia. 6. Mild protein-calorie malnutrition. 7. cardiomyopathy 8. pericardial effusion 9. aspiration risk PLAN pain management reduce steroids monitor for change folllow up labs iron therapy losing weight and would benefit from additional rehab discuss short term rehab before home impression, plan, and exam edited and reviewed in detail care discussed with RN Subjective Allergies: Coded Allergies: ERYTHROMYCIN BASE (Unverified Allergy, Unknown, 07/18/18) THIOPENTAL (Unverified Allergy, Unknown, 07/18/18) Uncoded Allergies: ERYTHROMYCIN (Allergy, Unknown, 07/18/18) SODIUM PENATHOL (Allergy, Unknown, 07/18/18) Subjective weak fragile still with some sob Objective Last 24 Hour Vital Signs Date Time Temp Pulse Resp B/P (MAP) Pulse Ox O2 Delivery O2 Flow Rate FiO2 08/23/18 07:18 88 20 92 Nasal Cannula 2.0 28 08/23/18 07:10 Nasal Cannula 2.0 28 08/23/18 07:10 93 Nasal Cannula 2.0 28 08/23/18 07:05 87 20 93 Nasal Cannula 2.0 28 08/23/18 04:00 97.7 93 18 114/79 (91) 97 08/23/18 04:00 88 08/23/18 03:14 92 20 96 Nasal Cannula 2.0 28 08/23/18 03:04 93 20 94 Nasal Cannula 2.0 28 08/23/18 00:00 97.9 88 18 127/87 (100) 98 08/23/18 00:00 90 08/22/18 23:44 89 18 96 Nasal Cannula 2.0 28 08/22/18 23:33 89 18 94 Nasal Cannula 2.0 28 08/22/18 21:41 91 116/75 08/22/18 21:00 Nasal Cannula 2.0 08/22/18 20:17 91 18 97 Nasal Cannula 2.0 28 08/22/18 20:07 Nasal Cannula 2.0 28 08/22/18 20:07 90 18 95 Nasal Cannula 2.0 28 08/22/18 20:07 95 Nasal Cannula 2.0 28 08/22/18 20:00 96.7 89 18 116/75 (89) 95 08/22/18 20:00 94 08/22/18 16:00 93 08/22/18 16:00 97.8 87 18 125/77 (93) 94 08/22/18 15:36 96 20 98 Nasal Cannula 2.0 28 08/22/18 15:27 92 20 94 Nasal Cannula 2.0 28 08/22/18 15:14 93 08/22/18 12:00 97.9 08/22/18 12:00 97.3 93 18 121/81 (94) 96 08/22/18 11:52 89 08/22/18 11:05 89 20 96 Nasal Cannula 2.0 28 08/22/18 10:56 97 20 93 Nasal Cannula 2.0 28 08/22/18 09:00 Nasal Cannula 2.0 08/22/18 08:57 89 116/79 08/22/18 08:57 116/79 08/22/18 08:13 89 Intake and Output 08/22/18 08/23/18 18:59 06:59 Intake Total 915 ml 260 ml Output Total 400 ml 1000 ml Balance 515 ml -740 ml Intake Oral 860 ml IV Total 55 ml 260 ml Output Urine Total 400 ml 1000 ml Laboratory Tests 08/22/18 14:00: Urine Color Red, Urine Appearance Turbid, Urine pH 6, Urine Specific [place] 1.015, Urine Protein 3+H, Urine Glucose (UA) Negative, Urine Ketones Negative, Urine Blood 5+H, Urine Nitrite Negative, Urine Bilirubin Negative, Urine Urobilinogen Normal, Urine Leukocyte Esterase 3+H, Urine RBC TntcH, Urine WBC 2- 4, Urine Squamous Epithelial Cells Occasional, Urine Bacteria Few 08/23/18 06:00: Magnesium Level 2.1 Height (Feet): 5 Height (Inches): 10.00 Weight (Pounds): 224 Objective HEENT: Negative. NECK: Supple. No adenopathy. LUNGS: Moderate breath sounds. no rhonchi and wheezes. CARDIAC: S1 and S2. RRR without murmurs, rubs, or gallops. ABDOMEN: Soft, nontender, and nondistended. EXTREMITIES: No cyanosis or clubbing. + edema. NEUROLOGICAL: Very weak overall, but alert. Rodolfo Olivas MD August 23, 2018 08:10
[2018-08-23 08:23] LABS: BASOPHILS % (AUTO) 0.4 % (0.0-2.0); HEMATOCRIT 46.2 % (37.0-47.0); HEMOGLOBIN 14.2 G/DL (12.0-16.0); MEAN CORPUSCULAR VOLUME 78 FL (80-99); MONOCYTES % (AUTO) 7.2 % (1.0-10.0); NEUTROPHILS % (AUTO) 77.4 % (45.0-75.0); PLATELET COUNT 283 K/UL (150-450); RED BLOOD COUNT 5.88 M/UL (4.20-5.40)
--- NOTE | 2018-08-23 08:24 | NUR ---
NURSE NOTES: Dr. Olivas saw patient. Reported blood in urine of bustillo catheter and Rachael's (patient's daughter) phone number. Dr. Olivas is aware.
[2018-08-23 08:33] LABS: ALANINE AMINOTRANSFERASE 10 U/L (12-78); ALBUMIN 3.2 G/DL (3.4-5.0); ALBUMIN/GLOBULIN RATIO 0.8 (1.0-2.7); ALKALINE PHOSPHATASE 61 U/L (46-116); ANION GAP 12 mmol/L (5-15); ASPARTATE AMINO TRANSFERASE 15 U/L (15-37); BILIRUBIN,TOTAL 0.8 MG/DL (0.2-1.0); BLOOD UREA NITROGEN 38 mg/dL (7-18); CALCIUM 9.7 MG/DL (8.5-10.1); CARBON DIOXIDE 27 MMOL/L (21-32); CHLORIDE 98 MMOL/L (98-107); CREATININE 1.2 MG/DL (0.55-1.30); POTASSIUM 3.6 MMOL/L (3.5-5.1); SODIUM 137 MMOL/L (136-145)
[2018-08-23] MEDS: metFORMIN 500mg tab ORAL SCH ×2 (09:00→17:32)
[2018-08-23] MEDS: Losartan 50mg tab ORAL SCH ×2 (09:00→09:33)
--- NOTE | 2018-08-23 09:30 | NUR ---
NURSE NOTES: Dr. Moser, urologist, saw patient. States to irrigate as needed and continue to monitor. Urine is dark dae.
[2018-08-23] MEDS: cefTRIAXone 1 GM in D5W 55 ML IVPB SCH (09:33)
[2018-08-23] MEDS: Carvedilol 12.5mg tab ORAL SCH ×2 (09:33→20:46)
[2018-08-23] MEDS: Aspirin Baby 81mg ORAL SCH (09:33)
[2018-08-23] MEDS: Allopurinol 100mg Tab ORAL SCH (09:34)
[2018-08-23] MEDS: Furosemide 40mg tab ORAL SCH (09:35)
[2018-08-23] MEDS: Spironolactone 25mg tab ORAL SCH (09:35)
--- NOTE | 2018-08-23 10:31 | NUR ---
NURSE NOTES: Dr. William saw patient.
--- NOTE | 2018-08-23 11:14 | General Progress Note ---
Assessment/Plan Status: stable, progressing Assessment/Plan: Assessment - aspiration risk - COPD - intermittent abd pain - weight loss - Iron deficiency Recommendations - pulmonary follow up - stool w/u - IV fe - defer GI w/u until patient more stable Subjective Allergies: Coded Allergies: ERYTHROMYCIN BASE (Unverified Allergy, Unknown, 07/18/18) THIOPENTAL (Unverified Allergy, Unknown, 07/18/18) Uncoded Allergies: ERYTHROMYCIN (Allergy, Unknown, 07/18/18) SODIUM PENATHOL (Allergy, Unknown, 07/18/18) Subjective c/o upset stomach d/w patient re need for GI w/u Objective Last 24 Hour Vital Signs Date Time Temp Pulse Resp B/P (MAP) Pulse Ox O2 Delivery O2 Flow Rate FiO2 08/23/18 10:41 90 16 92 Nasal Cannula 3.0 32 08/23/18 10:41 90 16 92 Nasal Cannula 3.0 32 08/23/18 09:33 84 115/85 08/23/18 09:00 Nasal Cannula 2.0 08/23/18 09:00 115/85 08/23/18 08:00 97.7 84 18 115/85 (95) 95 08/23/18 07:40 88 08/23/18 07:18 88 20 92 Nasal Cannula 2.0 28 08/23/18 07:10 Nasal Cannula 2.0 28 08/23/18 07:10 93 Nasal Cannula 2.0 28 08/23/18 07:05 87 20 93 Nasal Cannula 2.0 28 08/23/18 04:00 97.7 93 18 114/79 (91) 97 08/23/18 04:00 88 08/23/18 03:14 92 20 96 Nasal Cannula 2.0 28 08/23/18 03:04 93 20 94 Nasal Cannula 2.0 28 08/23/18 00:00 97.9 88 18 127/87 (100) 98 08/23/18 00:00 90 08/22/18 23:44 89 18 96 Nasal Cannula 2.0 28 08/22/18 23:33 89 18 94 Nasal Cannula 2.0 28 08/22/18 21:41 91 116/75 08/22/18 21:00 Nasal Cannula 2.0 08/22/18 20:17 91 18 97 Nasal Cannula 2.0 28 08/22/18 20:07 Nasal Cannula 2.0 28 08/22/18 20:07 90 18 95 Nasal Cannula 2.0 28 08/22/18 20:07 95 Nasal Cannula 2.0 28 08/22/18 20:00 96.7 89 18 116/75 (89) 95 08/22/18 20:00 94 08/22/18 16:00 93 08/22/18 16:00 97.8 87 18 125/77 (93) 94 08/22/18 15:36 96 20 98 Nasal Cannula 2.0 28 08/22/18 15:27 92 20 94 Nasal Cannula 2.0 28 08/22/18 15:14 93 08/22/18 12:00 97.9 08/22/18 12:00 97.3 93 18 121/81 (94) 96 08/22/18 11:52 89 Intake and Output 08/22/18 08/23/18 18:59 06:59 Intake Total 915 ml 260 ml Output Total 400 ml 1000 ml Balance 515 ml -740 ml Intake Oral 860 ml IV Total 55 ml 260 ml Output Urine Total 400 ml 1000 ml Laboratory Tests 08/22/18 14:00: Urine Color Red, Urine Appearance Turbid, Urine pH 6, Urine Specific [place] 1.015, Urine Protein 3+H, Urine Glucose (UA) Negative, Urine Ketones Negative, Urine Blood 5+H, Urine Nitrite Negative, Urine Bilirubin Negative, Urine Urobilinogen Normal, Urine Leukocyte Esterase 3+H, Urine RBC TntcH, Urine WBC 2- 4, Urine Squamous Epithelial Cells Occasional, Urine Bacteria Few 08/23/18 05:24: White Blood Count 5.0, Red Blood Count 5.88H, Hemoglobin 14.2, Hematocrit 46.2, Mean Corpuscular Volume 78L, Mean Corpuscular Hemoglobin 24.2L, Mean Corpuscular Hemoglobin Concent 30.8L, Red Cell Distribution Width 17.0H, Platelet Count 283, Mean Platelet Volume 6.9, Neutrophils (%) (Auto) 77.4H, Lymphocytes (%) (Auto) 15.0L, Monocytes (%) (Auto) 7.2, Eosinophils (%) (Auto) 0.0, Basophils (%) (Auto) 0.4, Sodium Level 137, Potassium Level 3.6, Chloride Level 98, Carbon Dioxide Level 27, Anion Gap 12, Blood Urea Nitrogen 38H, Creatinine 1.2, Estimat Glomerular Filtration Rate 53.8, Glucose Level 146H, Calcium Level 9.7, Total Bilirubin 0.8, Aspartate Amino Transf (AST/SGOT) 15, Alanine Aminotransferase (ALT/SGPT) 10L, Alkaline Phosphatase 61, Total Protein 7.4, Albumin 3.2L, Globulin 4.2, Albumin/Globulin Ratio 0.8L 08/23/18 06:00: Magnesium Level 2.1 Height (Feet): 5 Height (Inches): 10.00 Weight (Pounds): 224 Objective Debilitated AA woman NCAT supple Chest scattered ronchi RR abd soft ND NT no edema Promise William MD August 23, 2018 11:14
[2018-08-23 12:00] VITALS: BP 140/70
--- NOTE | 2018-08-23 13:00 | NUR ---
NURSE NOTES: Patient was turned. patient refused to eat lunch.
--- NOTE | 2018-08-23 13:50 | NUR ---
ST NOTE: SWALLOW STATUS: FOLLOWED UP PT'S CONDITIONS. DISCUSSED WITH RNMARAL RE:PT'S CONDITIONS. PT WAS ONLY ABLE TO SIT UP AT 40 DEGREE TOLERATED DURING MEALS. PER RN, PT REFUSED BREAKFAST. SPOKE TO PT, PT IS HAVING PAIN ON HER BACK, RN OFFERED PAIN MEDICATION, PT REFUSED. WILL FOLLOW UP
[2018-08-23] MEDS ORDERED: LORazepam 1mg tab ORAL PRN (14:42)
[2018-08-23 16:00] VITALS: BP 138/74
--- NOTE | 2018-08-23 16:00 | NUR ---
NURSE NOTES: Patient states she wants to get out of bed. Still refused to eat lunch. Thickened water given. Spoke to dr. Olivas. Received order. Will continue to monitor.
[2018-08-23] MEDS: Montelukast 10mg tablet ORAL SCH (16:30)
--- NOTE | 2018-08-23 18:00 | NUR ---
NURSE NOTES: Patient refused dinner. Patient was turned. Patient states she felt tired. Pulse Ox is 90% on 2L NC.
--- NOTE | 2018-08-23 19:00 | NUR ---
HAND-OFF: Report given to FRANKLIN Hernandez. Patient is recieving breathing treatment.
--- NOTE | 2018-08-23 19:05 | NUR ---
NURSE NOTES: Received report from Ksenia Cade RN. Patient is awake in bed, A/O x4. Sinus rhythm on case monitor. No s/s of acute distress noted at this time. Saturating well on 2L O2 via nasal cannula. Velázquez catheter intact and draining well to gravity. Right forearm 22g IV TKO, intact and patent. Bed locked in lowest position with side rails up x3. Call light left within reach. Will continue to monitor.
[2018-08-23 20:00] VITALS: BP 107/64
--- NOTE | 2018-08-23 20:44 | Cardiology Report ---
APPROVED REPORT EXAM: Two-dimensional and M-mode echocardiogram with Doppler and color Doppler. INDICATION S.O.B M-Mode DIMENSIONS IVSd0.8 (0.7-1.1cm)Left Atrium (MM)2.0 (1.6-4.0cm) LVDd5.8 (3.5-5.6cm)Aortic Root3.3 (2.0-3.7cm) PWd0.9 (0.7-1.1cm)Aortic Cusp Exc.1.6 (1.5-2.0cm) IVSs4.8 cm LVDs1.2 (2.5-4.0cm) Global left ventricular hypokinesis with anteroseptal basal to mid akineis. Mild left ventricular enlargement . Left ventricular ejection fraction estimated to be 25-30 %. No evidence of left ventricular hypertrophy. Medium sized circumfrential pericardial effusion with no evidence of pericardial tamponade. Pleural effusion present . Normal left atrial chamber size. seen. Focal aortic valve sclerosis with adequate cusp excursion. Thickened mitral valve leaflets with normal excursion. Mitral annulus and aortic root calcification. Normal pulmonic valve structure. Normal tricuspid valve structure. IVC at size 2.0 cm without physiologic collapse suggestive of increased RA pressure.RA pressure estimated 15mmHg. A color flow and spectral Doppler study was performed and revealed: No aortic insufficiency . Mild mitral regurgitation. Left ventriclar diastolic function can not determined due to Arrhythmia . Moderate tricuspid regurgitation. Tricuspid systolic velocities suggests peak right ventricular systolic pressure of 59mmHg consistent with moderate borderline severe pulmonary hypertension .
[2018-08-23] MEDS: Latanoprost 0.005% Opth 2.5ml Soln BOTH EYES SCH (20:45)
[2018-08-23] MEDS: Iron Sucrose 100 MG in NS 55 ML IV SCH (20:46)
--- NOTE | 2018-08-23 22:15 | Consultation ---
DATE OF CONSULTATION: 08/23/2018 CONSULTING PHYSICIAN: Yash Marcos M.D. REFERRING PHYSICIAN: Prem Robledo M.D. REASON FOR CONSULTATION: Evaluation of hematuria. HISTORY OF PRESENT ILLNESS: This is a 68-year-old female. She was originally admitted to the hospital because of the shortness of breath. She has multiple medical problems. Apparently, she has a history of retention with chronic Velázquez. She has had a UTI and she was having gross hematuria, which according to the nurses started yesterday. Urology evaluation has been requested. The patient apparently was on anticoagulation with Eliquis, which apparently has been held. She is a relatively poor historian. Most of the history was obtained from the chart. PAST MEDICAL HISTORY: Significant for history of congestive heart failure, COPD, asthma, DVT, hypertension, diabetes, and scleroderma. PAST SURGICAL HISTORY: Unknown. MEDICATIONS: Current medications here in the hospital, the patient is on , Ativan, Robitussin, Coreg, Aldactone, Singulair, Ultram, [place], Rocephin, Zyloprim, aspirin, Lasix, Synthroid, Cozaar, Glucophage, and albuterol. ALLERGIES: Multiple, please refer to chart. SOCIAL HISTORY: The patient is currently nonsmoker, apparently she quit. REVIEW OF SYSTEMS: As above. FAMILY HISTORY: Noncontributory. PHYSICAL EXAMINATION: GENERAL: Elderly female, in no acute distress. VITAL SIGNS: Temperature is 97.3, blood pressure 130/74, pulse 78, and respirations 17. HEENT: Normocephalic. NECK: Supple. ABDOMEN: Soft. GENITOURINARY: Velázquez catheter in place. This is a 22-[place] catheter. Urine in the bag is dark bloody, in the tubing is dae blood-tinged. EXTREMITIES: No clubbing or cyanosis. LABORATORY DATA: Her admission UA showed 3+ protein, 5 to 10 rbc's, 15-20 wbc's, and moderate bacteria. She did have a urine culture from the time of admission, which showed E. coli ESBL as well as Enterococcus. Her white blood cell count is 5.0, hemoglobin 14.2. Her BUN is 38, creatinine 1.2. DIAGNOSTIC IMAGING STUDIES: The patient had abdominal ultrasound two days ago and at that time the kidneys were reported to be normal. IMPRESSION: 1. Gross hematuria. 2. Urinary retention. 3. Probable neurogenic bladder. 4. Urinary tract infection and colonized. 5. Proteinuria. PLAN AND DISCUSSION: Again, the patient does have gross hematuria, which is slowly clearing without any evidence of active bleeding. At this time, she will be monitored closely with hand irrigation, which will be on a p.r.n. basis. The catheter was irrigated and there was no clot. The bleeding may be secondary to UTI, Velázquez irritation and exacerbation of anticoagulation. She is currently on Rocephin and we may have to adjust the antibiotics based on the urine culture and sensitivities. We will also consider obtaining a CT scan. She will need to have cystoscopy at some point to complete the workup. This can potentially be done as an outpatient. She apparently has a chronic Velázquez and we will consider changing it if it has not been changed recently. Thank you for this consultation. Yash Marcos M.D. DR: JULIUS JOB#: [id number] CC:
[2018-08-23] MEDS: Piperacillin/Tazobactam 3.375 GM in NS 110 ML IVPB SCH (22:55)
--- NOTE | 2018-08-23 23:50 | Cardiology Progress Note ---
Assessment/Plan Assessment/Plan 1. Dilated cardiomyopathy, known case of chronic CHF, now with acute on chronic systolic and diastolic CHF. 2D-echo reveals LVEF at 25%. Continue GDMT. 2. Medium sized pericardial effusion with no echo signs of cardiac tamponade. 3. Large pleural effusion on the left side. 3. Severe pulmonary HTN Subjective Subjective Sinus rhythm at 91. On venturi mask with FiO2 of 30%. Objective Last 24 Hour Vital Signs Date Time Temp Pulse Resp B/P (MAP) Pulse Ox O2 Delivery O2 Flow Rate FiO2 08/23/18 23:37 91 18 97 Venturi Mask 4.0 30 08/23/18 23:27 91 20 94 Venturi Mask 4.0 30 08/23/18 20:46 93 125/57 08/23/18 20:00 97.7 63 18 107/64 (78) 98 08/23/18 19:24 93 20 96 Venturi Mask 4.0 30 08/23/18 19:14 Nasal Cannula 3.0 32 08/23/18 19:14 95 20 92 Nasal Cannula 2.0 28 08/23/18 19:14 92 Nasal Cannula 3.0 32 08/23/18 16:48 93 08/23/18 16:00 97.3 78 17 138/74 (95) 95 08/23/18 15:40 93 18 95 Nasal Cannula 2.0 28 08/23/18 15:25 94 16 92 Nasal Cannula 3.0 32 08/23/18 12:00 97.2 72 18 140/70 (93) 95 08/23/18 11:53 89 08/23/18 10:41 90 16 92 Nasal Cannula 3.0 32 08/23/18 10:41 90 16 92 Nasal Cannula 3.0 32 08/23/18 09:33 84 115/85 08/23/18 09:00 Nasal Cannula 2.0 08/23/18 09:00 115/85 08/23/18 08:00 97.7 84 18 115/85 (95) 95 08/23/18 07:40 88 08/23/18 07:18 88 20 92 Nasal Cannula 2.0 28 08/23/18 07:10 Nasal Cannula 2.0 28 08/23/18 07:10 93 Nasal Cannula 2.0 28 08/23/18 07:05 87 20 93 Nasal Cannula 2.0 28 08/23/18 04:00 97.7 93 18 114/79 (91) 97 08/23/18 04:00 88 08/23/18 03:14 92 20 96 Nasal Cannula 2.0 28 08/23/18 03:04 93 20 94 Nasal Cannula 2.0 28 08/23/18 00:00 97.9 88 18 127/87 (100) 98 08/23/18 00:00 90 Intake and Output 08/22/18 08/23/18 19:00 07:00 Intake Total 1015 ml 160 ml Output Total 400 ml 1000 ml Balance 615 ml -840 ml Intake Oral 860 ml IV Total 155 ml 160 ml Output Urine Total 400 ml 1000 ml 2D Echo: 4CDM, LVEF 25%,Global LVHK, Mild LVH, Mod.Peric eff., Pleural eff. RVSP 59 Laboratory Tests Test 08/23/18 05:24 08/23/18 06:00 White Blood Count 5.0 K/UL (4.8-10.8) Red Blood Count 5.88 M/UL (4.20-5.40) H Hemoglobin 14.2 G/DL (12.0-16.0) Hematocrit 46.2 % (37.0-47.0) Mean Corpuscular Volume 78 FL (80-99) L Mean Corpuscular Hemoglobin 24.2 PG (27.0-31.0) L Mean Corpuscular Hemoglobin Concent 30.8 G/DL (32.0-36.0) L Red Cell Distribution Width 17.0 % (11.6-14.8) H Platelet Count 283 K/UL (150-450) Mean Platelet Volume 6.9 FL (6.5-10.1) Neutrophils (%) (Auto) 77.4 % (45.0-75.0) H Lymphocytes (%) (Auto) 15.0 % (20.0-45.0) L Monocytes (%) (Auto) 7.2 % (1.0-10.0) Eosinophils (%) (Auto) 0.0 % (0.0-3.0) Basophils (%) (Auto) 0.4 % (0.0-2.0) Sodium Level 137 MMOL/L (136-145) Potassium Level 3.6 MMOL/L (3.5-5.1) Chloride Level 98 MMOL/L (98-107) Carbon Dioxide Level 27 MMOL/L (21-32) Anion Gap 12 mmol/L (5-15) Blood Urea Nitrogen 38 mg/dL (7-18) H Creatinine 1.2 MG/DL (0.55-1.30) Estimat Glomerular Filtration Rate 53.8 mL/min (>60) Glucose Level 146 MG/DL (74-106) H Calcium Level 9.7 MG/DL (8.5-10.1) Total Bilirubin 0.8 MG/DL (0.2-1.0) Aspartate Amino Transf (AST/SGOT) 15 U/L (15-37) Alanine Aminotransferase (ALT/SGPT) 10 U/L (12-78) L Alkaline Phosphatase 61 U/L (46-116) Total Protein 7.4 G/DL (6.4-8.2) Albumin 3.2 G/DL (3.4-5.0) L Globulin 4.2 g/dL Albumin/Globulin Ratio 0.8 (1.0-2.7) L Magnesium Level 2.1 MG/DL (1.8-2.4) Microbiology Date/Time Source Procedure Growth Status 08/22/18 14:00 Urine,Clean Catch Urine Culture - Preliminary Resulted Objective HEENT: Atraumatic and normocephalic. Anicteric. Pupils are equal, round, and reactive to light and accommodation. Extraocular muscles intact. NECK: JVP is less than 5 cm. No carotid bruit. Carotid upstrokes 2+ bilaterally. CARDIOVASCULAR: Normal S1, S2. Regular rate and rhythm. No murmurs, gallops, or rubs. LUNGS: Diminished breath sounds with rhonchi bilaterally. ABDOMEN: Soft, nontender, and nondistended. No hepatosplenomegaly. Positive bowel sounds. EXTREMITIES: No evidence of edema, clubbing, or cyanosis. Ronak Snow MD August 23, 2018 23:50
[2018-08-24] VITALS: BP 116/80
[2018-08-24] MEDS: Albuterol/Ipratropium 3ml neb HHN SCH ×6 (03:19→22:50)
[2018-08-24 04:00] VITALS: BP 127/85
[2018-08-24] MEDS: Piperacillin/Tazobactam 3.375 GM in NS 110 ML IVPB SCH ×3 (06:16→22:02)
--- NOTE | 2018-08-24 07:02 | General Progress Note ---
Assessment/Plan Status: stable, progressing Assessment/Plan: Assessment - aspiration risk - COPD - CM with EF 25% - intermittent abd pain - weight loss - Iron deficiency Recommendations - pulmonary follow up - Cardiology f/u - hold oral anticoagulants until Monday (IV heparin OK) - IV fe - Possible EGD/Colon Monday am if stable and OK with all Subjective Allergies: Coded Allergies: ERYTHROMYCIN BASE (Unverified Allergy, Unknown, 07/18/18) THIOPENTAL (Unverified Allergy, Unknown, 07/18/18) Uncoded Allergies: ERYTHROMYCIN (Allergy, Unknown, 07/18/18) SODIUM PENATHOL (Allergy, Unknown, 07/18/18) Subjective No new complaints d/w pulmonary/IM re possible EGD/ColonI w/u Monday Objective Last 24 Hour Vital Signs Date Time Temp Pulse Resp B/P (MAP) Pulse Ox O2 Delivery O2 Flow Rate FiO2 08/24/18 04:00 97.9 88 18 127/85 (99) 96 08/24/18 03:42 88 08/24/18 03:29 88 18 96 Venturi Mask 4.0 30 08/24/18 03:19 88 18 96 Venturi Mask 4.0 30 08/24/18 00:00 97.6 94 18 116/80 (92) 96 08/24/18 00:00 Venturi Mask 4.0 08/23/18 23:59 91 08/23/18 23:37 91 18 97 Venturi Mask 4.0 30 08/23/18 23:27 91 20 94 Venturi Mask 4.0 30 08/23/18 21:00 Nasal Cannula 2.0 08/23/18 20:46 93 125/57 08/23/18 20:00 97.7 63 18 107/64 (78) 98 08/23/18 19:24 93 20 96 Venturi Mask 4.0 30 08/23/18 19:14 Nasal Cannula 3.0 32 08/23/18 19:14 95 20 92 Nasal Cannula 2.0 28 08/23/18 19:14 92 Nasal Cannula 3.0 32 08/23/18 19:07 92 08/23/18 16:48 93 08/23/18 16:00 97.3 78 17 138/74 (95) 95 08/23/18 15:40 93 18 95 Nasal Cannula 2.0 28 08/23/18 15:25 94 16 92 Nasal Cannula 3.0 32 08/23/18 12:00 97.2 72 18 140/70 (93) 95 08/23/18 11:53 89 08/23/18 10:41 90 16 92 Nasal Cannula 3.0 32 08/23/18 10:41 90 16 92 Nasal Cannula 3.0 32 08/23/18 09:33 84 115/85 08/23/18 09:00 Nasal Cannula 2.0 08/23/18 09:00 115/85 08/23/18 08:00 97.7 84 18 115/85 (95) 95 08/23/18 07:40 88 08/23/18 07:18 88 20 92 Nasal Cannula 2.0 28 08/23/18 07:10 Nasal Cannula 2.0 28 08/23/18 07:10 93 Nasal Cannula 2.0 28 08/23/18 07:05 87 20 93 Nasal Cannula 2.0 28 Intake and Output 08/23/18 08/24/18 18:59 06:59 Intake Total 240 ml 172.12207 ml Output Total 400 ml 400 ml Balance -160 ml -227.19581 ml Intake Oral 240 ml IV Total 172.29312 ml Output Urine Total 400 ml 400 ml Height (Feet): 5 Height (Inches): 10.00 Weight (Pounds): 224 Objective Debilitated AA woman NCAT supple Chest scattered ronchi RR abd soft ND NT no edema Promise William MD August 24, 2018 07:02
--- NOTE | 2018-08-24 07:10 | NUR ---
HAND-OFF: Report given to Ksenia Villarreal RN.
--- NOTE | 2018-08-24 07:17 | NUR ---
NURSE NOTES: Report received from FRANKLIN Hernandze. Observed patient in bed sleeping. Arousable by voice and verbally responsive. Receiving 4L of oxygen via venturi mask with no distress noted. No s/s of pain at this time. IV site intact and patent. F/C intact and noted with slightly pink colored of urine. Bed in lowest position. Call light within reach. Will continue to monitor.
[2018-08-24 08:00] VITALS: BP 142/76
--- NOTE | 2018-08-24 08:00 | General Progress Note ---
Assessment/Plan Problem List: (1) Encounter for generalized patient complaints ICD Codes: Z00.8 - Encounter for other general examination SNOMED: 189572711 (2) CHF (congestive heart failure) ICD Codes: I50.9 - Heart failure, unspecified SNOMED: 97559574 Qualifiers: Qualified Codes: I50.82 - Biventricular heart failure (3) Hypoxia ICD Codes: R09.02 - Hypoxemia SNOMED: 228326954 (4) UTI (urinary tract infection) ICD Codes: N39.0 - Urinary tract infection, site not specified SNOMED: 93488719 Qualifiers: Qualified Codes: N30.00 - Acute cystitis without hematuria (5) COPD exacerbation ICD Codes: J44.1 - Chronic obstructive pulmonary disease with (acute) exacerbation SNOMED: 801753223 Status: stable, progressing Assessment/Plan: iv abx resp care check cxr and abg xarelto rx monitor for recurrent hematuria Subjective ROS Limited/Unobtainable: No Constitutional: Reports: malaise, weakness HEENT: Reports: no symptoms Cardiovascular: Reports: no symptoms Respiratory: Reports: cough, shortness of breath Gastrointestinal/Abdominal: Reports: no symptoms Genitourinary: Reports: hematuria Neurologic/Psychiatric: Reports: no symptoms Endocrine: Reports: no symptoms Hematologic/Lymphatic: Reports: no symptoms Allergies: Coded Allergies: ERYTHROMYCIN BASE (Unverified Allergy, Unknown, 07/18/18) THIOPENTAL (Unverified Allergy, Unknown, 07/18/18) Uncoded Allergies: ERYTHROMYCIN (Allergy, Unknown, 07/18/18) SODIUM PENATHOL (Allergy, Unknown, 07/18/18) All Systems: reviewed and negative except above Subjective no events. more sob. on venti mask. no fever or chills. hematuria resolved Objective Last 24 Hour Vital Signs Date Time Temp Pulse Resp B/P (MAP) Pulse Ox O2 Delivery O2 Flow Rate FiO2 08/24/18 07:51 94 20 97 Venturi Mask 4.0 30 08/24/18 07:37 92 20 97 Venturi Mask 4.0 30 08/24/18 07:37 Venturi Mask 4.0 30 08/24/18 07:37 6 Venturi Mask 4.0 30 08/24/18 04:00 97.9 88 18 127/85 (99) 96 08/24/18 03:42 88 08/24/18 03:29 88 18 96 Venturi Mask 4.0 30 08/24/18 03:19 88 18 96 Venturi Mask 4.0 30 08/24/18 00:00 97.6 94 18 116/80 (92) 96 08/24/18 00:00 Venturi Mask 4.0 08/23/18 23:59 91 08/23/18 23:37 91 18 97 Venturi Mask 4.0 30 08/23/18 23:27 91 20 94 Venturi Mask 4.0 30 08/23/18 21:00 Nasal Cannula 2.0 08/23/18 20:46 93 125/57 08/23/18 20:00 97.7 63 18 107/64 (78) 98 08/23/18 19:24 93 20 96 Venturi Mask 4.0 30 08/23/18 19:14 Nasal Cannula 3.0 32 08/23/18 19:14 95 20 92 Nasal Cannula 2.0 28 08/23/18 19:14 92 Nasal Cannula 3.0 32 08/23/18 19:07 92 08/23/18 16:48 93 08/23/18 16:00 97.3 78 17 138/74 (95) 95 08/23/18 15:40 93 18 95 Nasal Cannula 2.0 28 08/23/18 15:25 94 16 92 Nasal Cannula 3.0 32 08/23/18 12:00 97.2 72 18 140/70 (93) 95 08/23/18 11:53 89 08/23/18 10:41 90 16 92 Nasal Cannula 3.0 32 08/23/18 10:41 90 16 92 Nasal Cannula 3.0 32 08/23/18 09:33 84 115/85 08/23/18 09:00 Nasal Cannula 2.0 08/23/18 09:00 115/85 08/23/18 08:00 97.7 84 18 115/85 (95) 95 Intake and Output 08/23/18 08/24/18 19:00 07:00 Intake Total 240 ml 172.87243 ml Output Total 400 ml 400 ml Balance -160 ml -227.13827 ml Intake Oral 240 ml IV Total 172.62780 ml Output Urine Total 400 ml 400 ml Height (Feet): 5 Height (Inches): 10.00 Weight (Pounds): 224 Objective General Appearance: WD/WN, alert Cardiovascular: normal rate, regular rhythm Respiratory/Chest: chest wall non-tender, lungs clear, normal breath sounds, no respiratory distress, no accessory muscle use Abdomen: normal bowel sounds, non tender, soft, no organomegaly, no mass Edema: no edema noted Arm (L), no edema noted Arm (R), no edema noted Leg (L), no edema noted Leg (R), no edema noted Pedal (L), no edema noted Pedal (R), no edema noted Generalized Prem Robledo MD August 24, 2018 08:00
[2018-08-24] MEDS: Losartan 50mg tab ORAL SCH (08:37)
[2018-08-24] MEDS: Spironolactone 25mg tab ORAL SCH (08:38)
[2018-08-24] MEDS: metFORMIN 500mg tab ORAL SCH ×3 (08:38→17:11)
[2018-08-24] MEDS: Allopurinol 100mg Tab ORAL SCH (08:38)
[2018-08-24] MEDS: Carvedilol 12.5mg tab ORAL SCH ×2 (08:38→21:00)
[2018-08-24] MEDS: Aspirin Baby 81mg ORAL SCH (08:38)
[2018-08-24] MEDS: Furosemide 40mg tab ORAL SCH (08:38)
--- NOTE | 2018-08-24 08:42 | Urology Progress Note ---
Assessment/Plan Status: stable, progressing Assessment/Plan: 1. Gross hematuria, improved. 2. Urinary retention. 3. Probable neurogenic bladder. 4. Urinary tract infection and colonized. 5. Proteinuria. bustillo remains indwelling hand irrigated and do PRN urine clearing abx adjusted f/u on last urine cx OK to resume anticoagulation and monitor cysto later d/w Dr. Robledo Subjective Allergies: Coded Allergies: ERYTHROMYCIN BASE (Unverified Allergy, Unknown, 07/18/18) THIOPENTAL (Unverified Allergy, Unknown, 07/18/18) Uncoded Allergies: ERYTHROMYCIN (Allergy, Unknown, 07/18/18) SODIUM PENATHOL (Allergy, Unknown, 07/18/18) Subjective all noted, lethargic Objective Last 24 Hour Vital Signs Date Time Temp Pulse Resp B/P (MAP) Pulse Ox O2 Delivery O2 Flow Rate FiO2 08/24/18 08:38 87 142/76 08/24/18 08:37 142/76 08/24/18 08:00 97.6 87 20 142/76 (98) 98 08/24/18 07:51 94 20 97 Venturi Mask 4.0 30 08/24/18 07:37 92 20 97 Venturi Mask 4.0 30 08/24/18 07:37 Venturi Mask 4.0 30 08/24/18 07:37 6 Venturi Mask 4.0 30 08/24/18 04:00 97.9 88 18 127/85 (99) 96 08/24/18 03:42 88 08/24/18 03:29 88 18 96 Venturi Mask 4.0 30 08/24/18 03:19 88 18 96 Venturi Mask 4.0 30 08/24/18 00:00 97.6 94 18 116/80 (92) 96 08/24/18 00:00 Venturi Mask 4.0 08/23/18 23:59 91 08/23/18 23:37 91 18 97 Venturi Mask 4.0 30 08/23/18 23:27 91 20 94 Venturi Mask 4.0 30 08/23/18 21:00 Nasal Cannula 2.0 08/23/18 20:46 93 125/57 08/23/18 20:00 97.7 63 18 107/64 (78) 98 08/23/18 19:24 93 20 96 Venturi Mask 4.0 30 08/23/18 19:14 Nasal Cannula 3.0 32 08/23/18 19:14 95 20 92 Nasal Cannula 2.0 28 08/23/18 19:14 92 Nasal Cannula 3.0 32 08/23/18 19:07 92 08/23/18 16:48 93 08/23/18 16:00 97.3 78 17 138/74 (95) 95 08/23/18 15:40 93 18 95 Nasal Cannula 2.0 28 08/23/18 15:25 94 16 92 Nasal Cannula 3.0 32 08/23/18 12:00 97.2 72 18 140/70 (93) 95 08/23/18 11:53 89 08/23/18 10:41 90 16 92 Nasal Cannula 3.0 32 08/23/18 10:41 90 16 92 Nasal Cannula 3.0 32 08/23/18 09:33 84 115/85 08/23/18 09:00 Nasal Cannula 2.0 08/23/18 09:00 115/85 Intake and Output 08/23/18 08/24/18 18:59 06:59 Intake Total 240 ml 172.09835 ml Output Total 400 ml 400 ml Balance -160 ml -227.04709 ml Intake Oral 240 ml IV Total 172.14086 ml Output Urine Total 400 ml 400 ml Microbiology Date/Time Source Procedure Growth Status 08/19/18 21:05 Blood Blood Culture - Preliminary NO GROWTH AFTER 4 DAYS Resulted 08/19/18 21:53 Nasal Nares MRSA Culture - Final Staphylococcus Aureus - Mrsa Complete 08/22/18 14:00 Urine,Clean Catch Urine Culture - Preliminary Gram Negative Bacillus 1 Resulted 08/19/18 21:53 Rectum - Final NO CARBAPENEM-RESISTANT ENTEROBACTERI... Complete Current Medications Medications (Trade) Dose Ordered Sig/[place] Route PRN Reason Start Time Stop Time Status Last Admin Dose Admin Acetaminophen/ Hydrocodone Bitart ([employer] 10/325) 1 tab Q4H PRN ORAL Severe Pain (Pain Scale 7-10) 08/20/18 10:00 08/27/18 09:59 Acetaminophen/ Hydrocodone Bitart ([employer] 5/325) 1 tab Q4H PRN ORAL Moderate Pain (Pain Scale 4-6) 08/20/18 10:00 08/27/18 09:59 Albuterol/ Ipratropium (Albuterol/ Ipratropium) 3 ml Q4HRT HHN 08/20/18 07:00 08/25/18 06:59 08/24/18 07:34 Albuterol/ Ipratropium (Albuterol/ Ipratropium) 3 ml Q4HRT PRN HHN Shortness of Breath 08/20/18 06:45 08/25/18 06:44 Allopurinol (Zyloprim) 100 mg DAILY ORAL 08/20/18 09:00 09/19/18 08:59 08/24/18 08:38 Aspirin (ASA) 81 mg DAILY ORAL 08/20/18 09:00 09/19/18 08:59 08/23/18 09:33 Carvedilol (Coreg) 12.5 mg EVERY 12 HOURS ORAL 08/22/18 21:00 09/21/18 20:59 08/24/18 08:38 Furosemide (Lasix) 40 mg DAILY ORAL 08/20/18 09:00 09/19/18 08:59 08/24/18 08:38 Guaifenesin/ Dextromethorphan (Robitussin DM Syrup) 10 ml EVERY 6 HOURS PRN ORAL For Cough 08/23/18 02:00 09/22/18 01:59 08/23/18 15:00 Iron Sucrose 100 mg/Sodium Chloride 60 ml @ 240 mls/hr BEDTIME IV 08/22/18 21:00 08/26/18 21:14 08/23/18 20:46 Latanoprost (Xalatan) 1 drop BEDTIME BOTH EYES 08/23/18 21:00 09/22/18 20:59 08/23/18 20:45 Levothyroxine Sodium (Synthroid) 150 mcg ACBREAKFAST ORAL 08/20/18 09:00 09/19/18 08:59 08/24/18 06:16 Lorazepam (Ativan) 1 mg Q4H PRN ORAL For Anxiety 08/23/18 14:42 08/30/18 14:41 08/23/18 15:00 Losartan Potassium (Cozaar) 50 mg DAILY ORAL 08/20/18 09:00 09/19/18 08:59 08/24/18 08:37 Metformin HCl (Glucophage) 500 mg BID ORAL 08/20/18 09:00 09/19/18 08:59 08/24/18 08:38 Montelukast Sodium (Singulair) 10 mg QPM ORAL 08/20/18 16:30 09/19/18 16:29 08/21/18 17:17 Piperacillin Sod/ Tazobactam Sod 3.375 gm/Sodium Chloride 110 ml @ 27.5 mls/hr EVERY 8 HOURS IVPB 08/23/18 22:00 08/28/18 21:59 08/24/18 06:16 Sodium Phosphate (Fleet's Sodium Phosl Enema) 133 ml ONCE RECTAL 08/27/18 05:00 08/27/18 06:00 Sorbitol (Sorbitol) 60 ml ONCE ORAL 08/24/18 14:00 08/24/18 16:00 Sorbitol (Sorbitol) 60 ml ONCE ORAL 08/25/18 07:00 08/25/18 09:00 Sorbitol (Sorbitol) 60 ml ONCE ORAL 08/26/18 07:00 08/26/18 09:00 Sorbitol (Sorbitol) 60 ml ONCE ORAL 08/26/18 14:00 08/26/18 16:00 Spironolactone (Aldactone) 25 mg DAILY ORAL 08/21/18 14:15 09/20/18 14:14 08/24/18 08:38 Tramadol HCl (Ultram) 50 mg Q6H PRN ORAL Mild Pain (Pain Scale 1-3) 08/20/18 10:30 08/27/18 10:29 08/22/18 11:13 Laboratory Tests 08/24/18 08:05: Arterial Blood pH 7.412, Arterial Blood Partial Pressure CO2 40.0, Arterial Blood Partial Pressure O2 56.4L, Arterial Blood HCO3 24.9, Arterial Blood Oxygen Saturation 85.1*L, Arterial Blood Base Excess 0.3, Michael Test Positive Height (Feet): 5 Height (Inches): 10.00 Weight (Pounds): 224 Objective exam stable bustillo indwelling, urine clearing Yash Marcos MD August 24, 2018 08:42
[2018-08-24] MEDS ORDERED: Gadavist 7.5mMol/7.5ml vial IV PRN ×2 (09:00→09:15)
[2018-08-24] MEDS ORDERED: Eliquis 5mg tablet ORAL SCH (09:00)
--- NOTE | 2018-08-24 09:18 | Pulmonology Progress Note ---
Assessment/Plan Assessment/Plan Pulmonary Progress Note Status: stable, progressing Assessment/Plan: 1. Chronic obstructive pulmonary disease with acute exacerbation. 2. History of congestive heart failure. 3. Lactic acidemia of unclear significance. 4. Hyponatremia. 5. Mild azotemia. 6. Mild protein-calorie malnutrition. 7. cardiomyopathy 8. pericardial effusion 9. aspiration risk PLAN pain management reduce steroids monitor for change folllow up labs iron therapy losing weight and would benefit from additional rehab discuss short term rehab before home impression, plan, and exam edited and reviewed in detail care discussed with RN Subjective Allergies: Coded Allergies: ERYTHROMYCIN BASE (Unverified Allergy, Unknown, 07/18/18) THIOPENTAL (Unverified Allergy, Unknown, 07/18/18) Uncoded Allergies: ERYTHROMYCIN (Allergy, Unknown, 07/18/18) SODIUM PENATHOL (Allergy, Unknown, 07/18/18) Subjective weak fragile still with some sob Objective Vital Signs Noted Laboratory Tests 08/22/18 14:00: Urine Color Red, Urine Appearance Turbid, Urine pH 6, Urine Specific [place] [place] 1.015, Urine Protein 3+H, Urine Glucose (UA) Negative, Urine Ketones Negative, Urine Blood 5+H, Urine Nitrite Negative, Urine Bilirubin Negative, Urine Urobilinogen Normal, Urine Leukocyte Esterase 3+H, Urine RBC TntcH, Urine WBC 2- 4, Urine Squamous Epithelial Cells Occasional, Urine Bacteria Few 08/23/18 06:00: Magnesium Level 2.1 Height (Feet): 5 Height (Inches): 10.00 Weight (Pounds): 224 Objective HEENT: Negative. NECK: Supple. No adenopathy. LUNGS: Moderate breath sounds. no rhonchi and wheezes. CARDIAC: S1 and S2. RRR without murmurs, rubs, or gallops. ABDOMEN: Soft, nontender, and nondistended. EXTREMITIES: No cyanosis or clubbing. + edema. NEUROLOGICAL: Very weak overall, but alert. Subjective ROS Limited/Unobtainable: No Allergies: Coded Allergies: ERYTHROMYCIN BASE (Unverified Allergy, Unknown, 07/18/18) THIOPENTAL (Unverified Allergy, Unknown, 07/18/18) Uncoded Allergies: ERYTHROMYCIN (Allergy, Unknown, 07/18/18) SODIUM PENATHOL (Allergy, Unknown, 07/18/18) Objective Last 24 Hour Vital Signs Date Time Temp Pulse Resp B/P (MAP) Pulse Ox O2 Delivery O2 Flow Rate FiO2 08/24/18 09:00 Venturi Mask 4.0 08/24/18 08:38 87 142/76 08/24/18 08:37 142/76 08/24/18 08:00 97.6 87 20 142/76 (98) 98 08/24/18 08:00 89 08/24/18 07:51 94 20 97 Venturi Mask 4.0 30 08/24/18 07:37 92 20 97 Venturi Mask 4.0 30 08/24/18 07:37 Venturi Mask 4.0 30 08/24/18 07:37 6 Venturi Mask 4.0 30 08/24/18 04:00 97.9 88 18 127/85 (99) 96 08/24/18 03:42 88 08/24/18 03:29 88 18 96 Venturi Mask 4.0 30 08/24/18 03:19 88 18 96 Venturi Mask 4.0 30 08/24/18 00:00 97.6 94 18 116/80 (92) 96 08/24/18 00:00 Venturi Mask 4.0 08/23/18 23:59 91 08/23/18 23:37 91 18 97 Venturi Mask 4.0 30 08/23/18 23:27 91 20 94 Venturi Mask 4.0 30 08/23/18 21:00 Nasal Cannula 2.0 08/23/18 20:46 93 125/57 08/23/18 20:00 97.7 63 18 107/64 (78) 98 08/23/18 19:24 93 20 96 Venturi Mask 4.0 30 08/23/18 19:14 Nasal Cannula 3.0 32 08/23/18 19:14 95 20 92 Nasal Cannula 2.0 28 08/23/18 19:14 92 Nasal Cannula 3.0 32 08/23/18 19:07 92 08/23/18 16:48 93 08/23/18 16:00 97.3 78 17 138/74 (95) 95 08/23/18 15:40 93 18 95 Nasal Cannula 2.0 28 08/23/18 15:25 94 16 92 Nasal Cannula 3.0 32 08/23/18 12:00 97.2 72 18 140/70 (93) 95 08/23/18 11:53 89 08/23/18 10:41 90 16 92 Nasal Cannula 3.0 32 08/23/18 10:41 90 16 92 Nasal Cannula 3.0 32 08/23/18 09:33 84 115/85 Intake and Output 08/23/18 08/24/18 18:59 06:59 Intake Total 240 ml 172.51548 ml Output Total 400 ml 400 ml Balance -160 ml -227.82085 ml Intake Oral 240 ml IV Total 172.64980 ml Output Urine Total 400 ml 400 ml Microbiology Date/Time Source Procedure Growth Status 08/22/18 14:00 Urine,Clean Catch Urine Culture - Preliminary Gram Negative Bacillus 1 Resulted Laboratory Tests 08/24/18 08:05: Arterial Blood pH 7.412, Arterial Blood Partial Pressure CO2 40.0, Arterial Blood Partial Pressure O2 56.4L, Arterial Blood HCO3 24.9, Arterial Blood Oxygen Saturation 85.1*L, Arterial Blood Base Excess 0.3, Michael Test Positive Current Medications Medications (Trade) Dose Ordered Sig/[place] Route PRN Reason Start Time Stop Time Status Last Admin Dose Admin Acetaminophen/ Hydrocodone Bitart ([place] 10/325) 1 tab Q4H PRN ORAL Severe Pain (Pain Scale 7-10) 08/20/18 10:00 08/27/18 09:59 Acetaminophen/ Hydrocodone Bitart ([place] 5/325) 1 tab Q4H PRN ORAL Moderate Pain (Pain Scale 4-6) 08/20/18 10:00 08/27/18 09:59 Albuterol/ Ipratropium (Albuterol/ Ipratropium) 3 ml Q4HRT HHN 08/20/18 07:00 08/25/18 06:59 08/24/18 07:34 Albuterol/ Ipratropium (Albuterol/ Ipratropium) 3 ml Q4HRT PRN HHN Shortness of Breath 08/20/18 06:45 08/25/18 06:44 Allopurinol (Zyloprim) 100 mg DAILY ORAL 08/20/18 09:00 09/19/18 08:59 08/24/18 08:38 Aspirin (ASA) 81 mg DAILY ORAL 08/20/18 09:00 09/19/18 08:59 08/23/18 09:33 Carvedilol (Coreg) 12.5 mg EVERY 12 HOURS ORAL 08/22/18 21:00 09/21/18 20:59 08/24/18 08:38 Furosemide (Lasix) 40 mg DAILY ORAL 08/20/18 09:00 09/19/18 08:59 08/24/18 08:38 Gadobutrol (Gadavist) 7.5 mmol NOW PRN IV Radiology Procedure 08/24/18 09:00 08/28/18 08:58 Gadobutrol (Gadavist) 7.5 mmol NOW PRN IV Radiology Procedure 08/24/18 09:15 08/28/18 09:03 Guaifenesin/ Dextromethorphan (Robitussin DM Syrup) 10 ml EVERY 6 HOURS PRN ORAL For Cough 08/23/18 02:00 09/22/18 01:59 08/23/18 15:00 Iron Sucrose 100 mg/Sodium Chloride 60 ml @ 240 mls/hr BEDTIME IV 08/22/18 21:00 08/26/18 21:14 08/23/18 20:46 Latanoprost (Xalatan) 1 drop BEDTIME BOTH EYES 08/23/18 21:00 09/22/18 20:59 08/23/18 20:45 Levothyroxine Sodium (Synthroid) 150 mcg ACBREAKFAST ORAL 08/20/18 09:00 09/19/18 08:59 08/24/18 06:16 Lorazepam (Ativan) 1 mg Q4H PRN ORAL For Anxiety 08/23/18 14:42 08/30/18 14:41 08/23/18 15:00 Losartan Potassium (Cozaar) 50 mg DAILY ORAL 08/20/18 09:00 09/19/18 08:59 08/24/18 08:37 Metformin HCl (Glucophage) 500 mg BID ORAL 08/20/18 09:00 09/19/18 08:59 08/24/18 08:38 Montelukast Sodium (Singulair) 10 mg QPM ORAL 08/20/18 16:30 09/19/18 16:29 08/21/18 17:17 Piperacillin Sod/ Tazobactam Sod 3.375 gm/Sodium Chloride 110 ml @ 27.5 mls/hr EVERY 8 HOURS IVPB 08/23/18 22:00 08/28/18 21:59 08/24/18 06:16 Sodium Phosphate (Fleet's Sodium Phosl Enema) 133 ml ONCE RECTAL 08/27/18 05:00 08/27/18 06:00 Sorbitol (Sorbitol) 60 ml ONCE ORAL 08/24/18 14:00 08/24/18 16:00 Sorbitol (Sorbitol) 60 ml ONCE ORAL 08/25/18 07:00 08/25/18 09:00 Sorbitol (Sorbitol) 60 ml ONCE ORAL 08/26/18 07:00 08/26/18 09:00 Sorbitol (Sorbitol) 60 ml ONCE ORAL 08/26/18 14:00 08/26/18 16:00 Spironolactone (Aldactone) 25 mg DAILY ORAL 08/21/18 14:15 09/20/18 14:14 08/24/18 08:38 Tramadol HCl (Ultram) 50 mg Q6H PRN ORAL Mild Pain (Pain Scale 1-3) 08/20/18 10:30 08/27/18 10:29 08/22/18 11:13 Car Joseph MD August 24, 2018 09:18
--- NOTE | 2018-08-24 09:56 | NUR ---
RADIOLOGY DEPT., CHEST X-RAY DONE.-P.DYE
[2018-08-24 11:50] VITALS: BP 103/66
--- NOTE | 2018-08-24 12:14 | Diagnostic Imaging Report ---
Indication: Dyspnea Comparison: 08/19/2018 A single view chest radiograph was obtained. Findings: Cardiomegaly is present. There is pulmonary vascular congestion which may be slightly improved. Suspect a left pleural effusion. IMPRESSION: CHF. Probable mild improvement in the interval.
--- NOTE | 2018-08-24 12:16 | NUR ---
CASE MANAGEMENT:REVIEW 08/23/18 SI: CHF. COPD EXACERBATION. UTI 97.9 96 18 116/79 93% ON 2L/NC BUN+24 PO2-56.4 ABG-85.1 IS: IV ZOSYN Q8HRS IV VENOFER QHS COREG PO Q12 ALDACTONE PO QD SINGULAR PO QPM ASA PO QD LASIX PO QD COZAAR PO QD DUONEB HHN Q4HRS RTC : TELEMETRY STATUS DCP: PATIENT IS FROM HOME PLAN: XRAY BILATERAL SHOULDERS
--- NOTE | 2018-08-24 13:30 | NUR ---
NURSE NOTES: received patient in [facility], just came back from MRI. Patient noted with non responsible. Call [employer]ILL[employer] VESSEL OPERATOR and put her on 100% non-rebreather mask. Vitals checked. BP 145/105, HR 87, O2 sat 93%, and BS 91. Patient open her eyes and able to follow command, but still non-verbal. Re-checked BP 95/60 and HR 84. Called and informed Dr. Robledo with new order of STAT ABG and CT head. Order carried out.
--- NOTE | 2018-08-24 13:50 | NUR ---
RAPID RESPONSE: Responded to MEDICAID BILLING SPECIALIST call in Tele Room 210- patient in the [facility] apparently just came back from MRI - 2 e learning designer at the bedside - stated that patient noticed by them to be with altered mental status. Received patient on 100% NRFM - Sao2 88-94 %. BP 145/105 HR 87/min SR and RR 18/min, BS 91.Patient started to open eyes when called by name , able to squeeze hand on command. Patient non -verbal-.Dr. Olivas paged by Primary nurse - Dr. Robledo also paged -with order to do CT of the head. Patient back to bed - no resp. distress noted - awake but non- verbal . See Rapid Response sheet which remains on paper.
[2018-08-24] MEDS ORDERED: Sorbitol Solution UD 30ml ORAL SCH (14:00)
--- NOTE | 2018-08-24 14:33 | NUR ---
CONCERNING MRI..PT REFUSED EXAM, NEVER ABLE TO START. CAN NOT LAY FLAT. BECAME UNRESPONSIVE WHILE PREPARING FOR EXAM. PT BROUGHT TO ER TO EVALUATE. ER SUGGESTED BRING TO FLOOR AND CALL RAPID RESPONSE TEAM, WHICH WE DID. DR. ARRIOLA INFORMED VIA TELEPHONE ONLY THAT PT REFUSED EXAM. TJB 02:34
--- NOTE | 2018-08-24 14:57 | Diagnostic Imaging Report ---
Indication: Chest pain Technique: Continuous helical transaxial imaging of the chest was obtained from the thoracic inlet to the upper abdomen. No intravenous contrast was administered. Coronal 2-D reformats were also obtained. Total Dose length Product (DLP): 919.[address] Dose Index Volume (CTDIvol): 26.15 mGy Comparison: none Findings: There is a moderate to large pericardial effusion. Small right pleural effusion and small to moderate left pleural effusion demonstrated. Associated posterior compressive basal atelectasis demonstrated. Coronary calcifications are demonstrated. The visualized part of the upper abdomen is unremarkable. There is breathing motion artifact present. Vacuum disc phenomena and some endplate osteophytes noted throughout the thoracic spine. IMPRESSION: Moderate to large pericardial effusion. Moderate left pleural effusion and small right pleural effusion. Associated compressive atelectasis. Breathing motion artifact. Degenerative changes of the thoracic spine The CT scanner at [facility] is accredited by the [employer] and the scans are performed using dose optimization techniques as appropriate to a performed exam including Automatic Exposure control.
--- NOTE | 2018-08-24 15:40 | Diagnostic Imaging Report ---
Indication: Altered level of consciousness Technique: Contiguous 5 mm thick transaxial imaging of the head obtained in a Siem[employer] Sensation [address] scanner. Soft tissue and bone windows generated. Automatic Exposure Control was utilized. Total Dose length Product (DLP): 1383.[address] Dose Index Volume (CTDIvol): 70.38 mGy Comparison: none Findings: There is mild prominence of the ventricles, basal cisterns, and cerebral sulci consistent with atrophy. Mild, nonspecific, white matter hypoattenuation is noted throughout the brain consistent with chronic small vessel disease. There is no midline shift, edema, acute hemorrhage, mass effect, or abnormal extra-axial fluid collections. Bones and extra osseous soft tissues are unremarkable. Impression: No acute intracranial bleed, mass effect or edema. Mild atrophy of the brain. Nonspecific white matter hypoattenuation probably due to chronic small vessel disease. The CT scanner at [facility] is accredited by the [employer] and the scans are performed using dose optimization techniques as appropriate to a performed exam including Automatic Exposure control.
[2018-08-24 16:00] VITALS: BP 100/54
[2018-08-24] MEDS: Montelukast 10mg tablet ORAL SCH (16:56)
--- NOTE | 2018-08-24 17:59 | NUR ---
NURSE NOTES: Patient is verbally responsive now. Able to follow command and open eyes spontaneously. Will continue to monitor.
[2018-08-24] MEDS: D5 1/2NS 1,000 ML IV SCH (18:56)
--- NOTE | 2018-08-24 19:29 | NUR ---
HAND-OFF: Report given to FRANKLIN Kingsley. Stable condition.
--- NOTE | 2018-08-24 19:30 | NUR ---
NURSE NOTES: Received Pt is resting on the bed and awake and able to answer the question. Pt able to open the eyes spontaneously. IV site intact and no sign of infiltration noted and patent. On O2 4L via nasal cannula and SaO2 95% noted. No c/o SOB. Denied pain at this time. On Tele monitor with SR. On Velázquez cath and still noted slight hematuria with dark dae color. Changed position. Placed fall precaution. Will continue to care plan.
[2018-08-24 20:00] VITALS: BP 100/50
[2018-08-24] MEDS: Latanoprost 0.005% Opth 2.5ml Soln BOTH EYES SCH (20:40)
[2018-08-24] MEDS: Iron Sucrose 100 MG in NS 55 ML IV SCH (20:40)
--- NOTE | 2018-08-24 22:30 | History and Physical Report ---
DATE OF ADMISSION: 08/19/2018 NOTE: POOR AUDIO HEMATOLOGY/ONCOLOGY CONSULTATION HISTORY OF PRESENT ILLNESS: The patient is a pleasant 68-year-old with family history of extensive lung disease as well as heart disease has presented to the hospital apparently with significant shortness of breath for 2 weeks. I have had discussion with Dr. Olivas. The patient has significant sweats as well. The patient has been complaining of left upper quadrant and pelvic abdominal pain and discomfort with worsening appetite. The patient has had some regurgitation. The patient has been evaluated by Dr. William of gastroenterology. Has had significant GERD. Plans for the patient to undergo endoscopy. The patient's last endoscopy apparently was in 2006. The patient has been previously on CPAP and oxygen mask. The patient does state she has had some weight loss as well. LABORATORY DATA: I evaluated as of yesterday includes a white count of 5, hemoglobin 14.2, platelet count 283, 77% neutrophils. PTT of 33, INR of 1.7. The patient has a creatinine of 1.2, BUN 38, magnesium of 1.5. Iron saturation of 4%, ferritin of 36. AST and ALT of 15 and 10, and alkaline phosphatase of 61 with an albumin of 3.2, globulin of 4.2. The patient had an abdominal ultrasound demonstrating as well as gallbladder. 2D echo on 08/20/2018 has demonstrated ejection fraction of 25 to 30%. SOCIAL HISTORY: The patient denies any current history of tobacco use. The patient apparently had been in a nursing facility. My discussion with Dr. Olivas. PAST MEDICAL HISTORY: COPD, congestive heart failure, asthma, deep venous thrombosis, hypertension, diabetes, scleroderma, chronic constipation, bronchitis, post appendectomy, post . ALLERGIES: Per [facility]. MEDICATIONS: Per [facility]-Link. REVIEW OF SYSTEMS: HEENT: The patient denies any headaches. PULMONARY: The patient denies shortness of breath. CARDIAC: The patient denies chest pain. . GASTROINTESTINAL: abdominal pain. The patient is a poor historian however overall. The patient does have a history of atrial fibrillation. PHYSICAL EXAMINATION: GENERAL: The patient is a female . ABDOMEN: Soft and nontender. No rebound or guarding. VITAL SIGNS: She is on oxygen currently. Blood pressure 143/73, pulse of 87, temperature 97.6. HEAD AND NECK: Sclerae anicteric. CHEST: Rhonchi bilaterally. ASSESSMENT AND PLAN: 1. Sweats. 2. Weight loss. 3. Abdominal pain. 4. Significant shortness of breath. My recommendations for the patient to undergo CT imaging. I would recommend CT scan of chest with no contrast. MRI of the abdomen and pelvis with contrast. The patient also to undergo venous duplex of lower extremities. Lower extremity venous on the left and right. The patient is to undergo an endoscopy. 5. Iron deficiency. Stool occult blood needs to be done. 6. Code status, Full Code. 7. COPD. Currently being managed by Dr. Olivas. Laisha Meredith M.D. DR: NADEEM JOB#: [id number] CC:
[2018-08-25] VITALS: BP 122/57
[2018-08-25] MEDS: Albuterol/Ipratropium 3ml neb HHN SCH ×2 (03:09→06:33)
[2018-08-25 04:00] VITALS: BP 126/62
--- NOTE | 2018-08-25 04:20 | NUR ---
HAND-OFF: Report given to FRANKLIN Sue. Pt is sleeping on the bed and no sign of acute distress noted. Wound dressing was changed and cleaned Pt and applied lotion and cream. On O2 4L via nasal cannulat and saO2 98% noted at this time.
--- NOTE | 2018-08-25 04:30 | NUR ---
NURSE NOTES: received endorsement, pt in the bed no acute distress noted, bed locked and lowest position, call light within reach. will continue to monitor to ensure pt's safety.
[2018-08-25] MEDS: Piperacillin/Tazobactam 3.375 GM in NS 110 ML IVPB SCH ×3 (05:54→22:27)
--- NOTE | 2018-08-25 06:40 | NUR ---
NURSE NOTES: pt remains stable, no change in condition, pt was reposition every two hours. no c/o pain. all needs met during the shift. will endorse to incoming nurse.
[2018-08-25] MEDS ORDERED: Sorbitol Solution UD 30ml ORAL SCH (07:00)
--- NOTE | 2018-08-25 07:30 | NUR ---
NURSE NOTES: Received report from FRANKLIN Sue. Pt is laying in bed. Pt looks a fatigued. Bed is in lowest position, side rails up X2, and call light is within reach. Will continue to monitor.
--- NOTE | 2018-08-25 07:49 | General Progress Note ---
Assessment/Plan Problem List: (1) Encounter for generalized patient complaints ICD Codes: Z00.8 - Encounter for other general examination SNOMED: 158486404 (2) CHF (congestive heart failure) ICD Codes: I50.9 - Heart failure, unspecified SNOMED: 11652974 Qualifiers: Qualified Codes: I50.82 - Biventricular heart failure (3) Hypoxia ICD Codes: R09.02 - Hypoxemia SNOMED: 064466665 (4) UTI (urinary tract infection) ICD Codes: N39.0 - Urinary tract infection, site not specified SNOMED: 19967090 Qualifiers: Qualified Codes: N30.00 - Acute cystitis without hematuria (5) COPD exacerbation ICD Codes: J44.1 - Chronic obstructive pulmonary disease with (acute) exacerbation SNOMED: 527920256 Status: stable, progressing Assessment/Plan: iv abx resp care o2 on ivf- poor po intake monitor labs turn q2 cards follow up guarded Subjective ROS Limited/Unobtainable: No Constitutional: Reports: malaise, weakness HEENT: Reports: no symptoms Cardiovascular: Reports: no symptoms Respiratory: Reports: cough, shortness of breath Gastrointestinal/Abdominal: Reports: no symptoms Genitourinary: Reports: no symptoms Neurologic/Psychiatric: Reports: no symptoms Endocrine: Reports: no symptoms Hematologic/Lymphatic: Reports: no symptoms Allergies: Coded Allergies: ERYTHROMYCIN BASE (Unverified Allergy, Unknown, 07/18/18) THIOPENTAL (Unverified Allergy, Unknown, 07/18/18) Uncoded Allergies: ERYTHROMYCIN (Allergy, Unknown, 07/18/18) SODIUM PENATHOL (Allergy, Unknown, 07/18/18) All Systems: reviewed and negative except above Subjective events noted. unable to complete mri. pt became confused and poorly responsive. head ct negative. currently alert. follows commands. no fevers. Objective Last 24 Hour Vital Signs Date Time Temp Pulse Resp B/P (MAP) Pulse Ox O2 Delivery O2 Flow Rate FiO2 08/25/18 06:33 96 Nasal Cannula 2.0 28 08/25/18 06:33 Nasal Cannula 2.0 28 08/25/18 06:33 Nasal Cannula 2.0 28 08/25/18 06:33 Nasal Cannula 2.0 28 08/25/18 04:00 78 08/25/18 04:00 97.6 79 20 126/62 (83) 95 08/25/18 03:15 80 20 97 Nasal Cannula 4.0 36 08/25/18 03:06 79 20 95 Nasal Cannula 4.0 36 08/25/18 00:00 97.6 80 20 122/57 (78) 95 08/25/18 00:00 82 08/24/18 23:04 77 20 97 Nasal Cannula 4.0 36 08/24/18 22:47 83 20 93 Nasal Cannula 4.0 36 08/24/18 21:00 Nasal Cannula 4.0 08/24/18 21:00 83 100/50 08/24/18 20:00 97.3 83 20 100/50 (67) 95 08/24/18 20:00 85 08/24/18 19:36 80 18 96 Nasal Cannula 4.0 36 08/24/18 19:29 Nasal Cannula 4.0 36 08/24/18 19:28 94 Nasal Cannula 4.0 36 08/24/18 19:26 77 20 Nasal Cannula 4.0 36 08/24/18 16:00 97.3 84 20 100/54 (69) 95 08/24/18 16:00 82 08/24/18 14:48 89 20 96 Nasal Cannula 4.0 36 08/24/18 14:33 86 20 96 Non-Rebreather 15.0 100 08/24/18 12:00 85 08/24/18 11:50 97.5 83 20 103/66 (78) 97 08/24/18 10:42 Nasal Cannula 3.0 32 08/24/18 10:42 Nasal Cannula 3.0 32 08/24/18 09:00 Venturi Mask 4.0 08/24/18 08:38 87 142/76 08/24/18 08:37 142/76 08/24/18 08:00 97.6 87 20 142/76 (98) 98 08/24/18 08:00 89 08/24/18 07:51 94 20 97 Venturi Mask 4.0 30 Intake and Output 08/24/18 08/25/18 19:00 07:00 Intake Total 370.0 ml 1037.5 ml Output Total 450 ml 400 ml Balance -80.0 ml 637.5 ml Intake Oral 150 ml IV Total 220.0 ml 1037.5 ml Output Urine Total 450 ml 400 ml # Bowel Movements 1 Laboratory Tests 08/24/18 08:05: Arterial Blood pH 7.412, Arterial Blood Partial Pressure CO2 40.0, Arterial Blood Partial Pressure O2 56.4L, Arterial Blood HCO3 24.9, Arterial Blood Oxygen Saturation 85.1*L, Arterial Blood Base Excess 0.3, Michael Test Positive 08/24/18 10:00: Carcinoembryonic Antigen [Pending] 08/24/18 13:30: Arterial Blood pH 7.298L, Arterial Blood Partial Pressure CO2 46.6H, Arterial Blood Partial Pressure O2 97.9, Arterial Blood HCO3 22.3, Arterial Blood Oxygen Saturation 95.9, Arterial Blood Base Excess -4.3L, Michael Test Positive 08/25/18 00:20: Stool Occult Blood [Pending] Height (Feet): 5 Height (Inches): 10.00 Weight (Pounds): 224 Objective General Appearance: WD/WN, alert Cardiovascular: normal rate, regular rhythm Respiratory/Chest: chest wall non-tender, lungs clear, normal breath sounds, no respiratory distress, no accessory muscle use Abdomen: normal bowel sounds, non tender, soft, no organomegaly, no mass Edema: no edema noted Arm (L), no edema noted Arm (R), no edema noted Leg (L), no edema noted Leg (R), no edema noted Pedal (L), no edema noted Pedal (R), no edema noted Generalized Prem Robledo MD August 25, 2018 07:49
--- NOTE | 2018-08-25 07:50 | General Progress Note ---
Assessment/Plan Status: stable, progressing Assessment/Plan: 1. Chronic obstructive pulmonary disease with acute exacerbation. 2. History of congestive heart failure. 3. Lactic acidemia of unclear significance. 4. Hyponatremia. 5. Mild azotemia. 6. Mild protein-calorie malnutrition. 7. cardiomyopathy 8. pericardial effusion 9. aspiration risk 10. pleural effusion PLAN tap neuro evaluation pain management reduce steroids monitor for change folllow up labs iron therapy repeat abg this am losing weight and would benefit from additional rehab discuss short term rehab before home impression, plan, and exam edited and reviewed in detail care discussed with RN Subjective Allergies: Coded Allergies: ERYTHROMYCIN BASE (Unverified Allergy, Unknown, 07/18/18) THIOPENTAL (Unverified Allergy, Unknown, 07/18/18) Uncoded Allergies: ERYTHROMYCIN (Allergy, Unknown, 07/18/18) SODIUM PENATHOL (Allergy, Unknown, 07/18/18) Subjective weak altered Objective Last 24 Hour Vital Signs Date Time Temp Pulse Resp B/P (MAP) Pulse Ox O2 Delivery O2 Flow Rate FiO2 08/25/18 06:33 96 Nasal Cannula 2.0 28 08/25/18 06:33 Nasal Cannula 2.0 28 08/25/18 06:33 Nasal Cannula 2.0 28 08/25/18 06:33 Nasal Cannula 2.0 28 08/25/18 04:00 78 08/25/18 04:00 97.6 79 20 126/62 (83) 95 08/25/18 03:15 80 20 97 Nasal Cannula 4.0 36 08/25/18 03:06 79 20 95 Nasal Cannula 4.0 36 08/25/18 00:00 97.6 80 20 122/57 (78) 95 08/25/18 00:00 82 08/24/18 23:04 77 20 97 Nasal Cannula 4.0 36 08/24/18 22:47 83 20 93 Nasal Cannula 4.0 36 08/24/18 21:00 Nasal Cannula 4.0 08/24/18 21:00 83 100/50 08/24/18 20:00 97.3 83 20 100/50 (67) 95 08/24/18 20:00 85 08/24/18 19:36 80 18 96 Nasal Cannula 4.0 36 08/24/18 19:29 Nasal Cannula 4.0 36 08/24/18 19:28 94 Nasal Cannula 4.0 36 08/24/18 19:26 77 20 Nasal Cannula 4.0 36 08/24/18 16:00 97.3 84 20 100/54 (69) 95 08/24/18 16:00 82 08/24/18 14:48 89 20 96 Nasal Cannula 4.0 36 08/24/18 14:33 86 20 96 Non-Rebreather 15.0 100 08/24/18 12:00 85 08/24/18 11:50 97.5 83 20 103/66 (78) 97 08/24/18 10:42 Nasal Cannula 3.0 32 08/24/18 10:42 Nasal Cannula 3.0 32 08/24/18 09:00 Venturi Mask 4.0 08/24/18 08:38 87 142/76 08/24/18 08:37 142/76 08/24/18 08:00 97.6 87 20 142/76 (98) 98 08/24/18 08:00 89 08/24/18 07:51 94 20 97 Venturi Mask 4.0 30 Intake and Output 08/24/18 08/25/18 19:00 07:00 Intake Total 370.0 ml 1037.5 ml Output Total 450 ml 400 ml Balance -80.0 ml 637.5 ml Intake Oral 150 ml IV Total 220.0 ml 1037.5 ml Output Urine Total 450 ml 400 ml # Bowel Movements 1 Laboratory Tests 08/24/18 08:05: Arterial Blood pH 7.412, Arterial Blood Partial Pressure CO2 40.0, Arterial Blood Partial Pressure O2 56.4L, Arterial Blood HCO3 24.9, Arterial Blood Oxygen Saturation 85.1*L, Arterial Blood Base Excess 0.3, Michael Test Positive 08/24/18 10:00: Carcinoembryonic Antigen [Pending] 08/24/18 13:30: Arterial Blood pH 7.298L, Arterial Blood Partial Pressure CO2 46.6H, Arterial Blood Partial Pressure O2 97.9, Arterial Blood HCO3 22.3, Arterial Blood Oxygen Saturation 95.9, Arterial Blood Base Excess -4.3L, Michael Test Positive 08/25/18 00:20: Stool Occult Blood [Pending] Height (Feet): 5 Height (Inches): 10.00 Weight (Pounds): 224 Objective HEENT: Negative. NECK: Supple. No adenopathy. LUNGS: Moderate breath sounds. no rhonchi and wheezes. reduced at base CARDIAC: S1 and S2. RRR without murmurs, rubs, or gallops. distant ABDOMEN: Soft, nontender, and nondistended. EXTREMITIES: No cyanosis or clubbing. + edema. NEUROLOGICAL: Very weak overall, but alert. Rodolfo Olivas MD August 25, 2018 07:49
--- NOTE | 2018-08-25 07:59 | General Progress Note ---
Assessment/Plan Problem List: (1) Iron deficiency anemia ICD Codes: D50.9 - Iron deficiency anemia, unspecified SNOMED: 74360192 (2) Pleural effusion ICD Codes: J90 - Pleural effusion, not elsewhere classified SNOMED: 48843556 (3) Pericardial effusion ICD Codes: I31.3 - Pericardial effusion (noninflammatory) SNOMED: 794896198 (4) CHF (congestive heart failure) ICD Codes: I50.9 - Heart failure, unspecified SNOMED: 74147716 Qualifiers: Qualified Codes: I50.82 - Biventricular heart failure (5) Hypoxia ICD Codes: R09.02 - Hypoxemia SNOMED: 613355416 (6) COPD exacerbation ICD Codes: J44.1 - Chronic obstructive pulmonary disease with (acute) exacerbation SNOMED: 603405624 Status: stable, progressing Assessment/Plan: oncology in put appreciated CT of chest reviewed pending abd MRI given large pericardial effusion will hold GI procedures for now fu cardiology Subjective ROS Limited/Unobtainable: Yes Allergies: Coded Allergies: ERYTHROMYCIN BASE (Unverified Allergy, Unknown, 07/18/18) THIOPENTAL (Unverified Allergy, Unknown, 07/18/18) Uncoded Allergies: ERYTHROMYCIN (Allergy, Unknown, 07/18/18) SODIUM PENATHOL (Allergy, Unknown, 07/18/18) Objective Last 24 Hour Vital Signs Date Time Temp Pulse Resp B/P (MAP) Pulse Ox O2 Delivery O2 Flow Rate FiO2 08/25/18 06:33 96 Nasal Cannula 2.0 28 08/25/18 06:33 Nasal Cannula 2.0 28 08/25/18 06:33 Nasal Cannula 2.0 28 08/25/18 06:33 Nasal Cannula 2.0 28 08/25/18 04:00 78 08/25/18 04:00 97.6 79 20 126/62 (83) 95 08/25/18 03:15 80 20 97 Nasal Cannula 4.0 36 08/25/18 03:06 79 20 95 Nasal Cannula 4.0 36 08/25/18 00:00 97.6 80 20 122/57 (78) 95 08/25/18 00:00 82 08/24/18 23:04 77 20 97 Nasal Cannula 4.0 36 08/24/18 22:47 83 20 93 Nasal Cannula 4.0 36 08/24/18 21:00 Nasal Cannula 4.0 08/24/18 21:00 83 100/50 08/24/18 20:00 97.3 83 20 100/50 (67) 95 08/24/18 20:00 85 08/24/18 19:36 80 18 96 Nasal Cannula 4.0 36 08/24/18 19:29 Nasal Cannula 4.0 36 08/24/18 19:28 94 Nasal Cannula 4.0 36 08/24/18 19:26 77 20 Nasal Cannula 4.0 36 08/24/18 16:00 97.3 84 20 100/54 (69) 95 08/24/18 16:00 82 08/24/18 14:48 89 20 96 Nasal Cannula 4.0 36 08/24/18 14:33 86 20 96 Non-Rebreather 15.0 100 08/24/18 12:00 85 08/24/18 11:50 97.5 83 20 103/66 (78) 97 08/24/18 10:42 Nasal Cannula 3.0 32 08/24/18 10:42 Nasal Cannula 3.0 32 08/24/18 09:00 Venturi Mask 4.0 08/24/18 08:38 87 142/76 08/24/18 08:37 142/76 08/24/18 08:00 97.6 87 20 142/76 (98) 98 08/24/18 08:00 89 Intake and Output 08/24/18 08/25/18 19:00 07:00 Intake Total 370.0 ml 1037.5 ml Output Total 450 ml 400 ml Balance -80.0 ml 637.5 ml Intake Oral 150 ml IV Total 220.0 ml 1037.5 ml Output Urine Total 450 ml 400 ml # Bowel Movements 1 Laboratory Tests 08/24/18 08:05: Arterial Blood pH 7.412, Arterial Blood Partial Pressure CO2 40.0, Arterial Blood Partial Pressure O2 56.4L, Arterial Blood HCO3 24.9, Arterial Blood Oxygen Saturation 85.1*L, Arterial Blood Base Excess 0.3, Michael Test Positive 08/24/18 10:00: Carcinoembryonic Antigen [Pending] 08/24/18 13:30: Arterial Blood pH 7.298L, Arterial Blood Partial Pressure CO2 46.6H, Arterial Blood Partial Pressure O2 97.9, Arterial Blood HCO3 22.3, Arterial Blood Oxygen Saturation 95.9, Arterial Blood Base Excess -4.3L, Michael Test Positive 08/25/18 00:20: Stool Occult Blood [Pending] Height (Feet): 5 Height (Inches): 10.00 Weight (Pounds): 224 General Appearance: no apparent distress EENT: normal ENT inspection Neck: supple Cardiovascular: normal rate Respiratory/Chest: decreased breath sounds Abdomen: normal bowel sounds, non tender, soft Extremities: non-tender Jatin Lozada MD August 25, 2018 07:59
[2018-08-25 08:00] VITALS: BP 104/72
--- NOTE | 2018-08-25 08:05 | Diagnostic Imaging Report ---
APPROVED REPORT CPT Code: 24634 Present Symptoms Lower Extremity Pain: Bilateral BILATERAL: Imaging reveals a patent deep venous system bilaterally. There is no evidence of thrombus within the common femoral, superficial femoral, popliteal or tibial segments. The greater saphenous veins are within normal limits. Doppler indicates normal spontaneous flow within these segments.
[2018-08-25 08:38] LABS: BASOPHILS % (AUTO) 0.9 % (0.0-2.0); HEMATOCRIT 42.2 % (37.0-47.0); HEMOGLOBIN 13.1 G/DL (12.0-16.0); LYMPHOCYTES % (AUTO) 14.7 % (20.0-45.0); MEAN CORPUSCULAR VOLUME 79 FL (80-99); NEUTROPHILS % (AUTO) 72.5 % (45.0-75.0); PLATELET COUNT 248 K/UL (150-450); RED BLOOD COUNT 5.37 M/UL (4.20-5.40); RED CELL DISTRIBUTION WIDTH 17.2 % (11.6-14.8); WHITE BLOOD COUNT 6.4 K/UL (4.8-10.8)
[2018-08-25 08:50] LABS: ALANINE AMINOTRANSFERASE 10 U/L (12-78); ALBUMIN 2.7 G/DL (3.4-5.0); ALBUMIN/GLOBULIN RATIO 0.7 (1.0-2.7); ALKALINE PHOSPHATASE 50 U/L (46-116); ANION GAP 10 mmol/L (5-15); ASPARTATE AMINO TRANSFERASE 15 U/L (15-37); BILIRUBIN,TOTAL 0.8 MG/DL (0.2-1.0); BLOOD UREA NITROGEN 39 mg/dL (7-18); CALCIUM 9.4 MG/DL (8.5-10.1); CARBON DIOXIDE 27 MMOL/L (21-32); CHLORIDE 103 MMOL/L (98-107); CREATININE 1.1 MG/DL (0.55-1.30); PHOSPHORUS 4.2 MG/DL (2.5-4.9); POTASSIUM 2.9 MMOL/L (3.5-5.1); SODIUM 140 MMOL/L (136-145)
[2018-08-25] MEDS: Spironolactone 25mg tab ORAL SCH (08:56)
[2018-08-25] MEDS: metFORMIN 500mg tab ORAL SCH ×2 (08:57→17:19)
[2018-08-25] MEDS: Furosemide 40mg tab ORAL SCH ×2 (08:57→09:00)
[2018-08-25] MEDS: Allopurinol 100mg Tab ORAL SCH (08:57)
[2018-08-25] MEDS: Aspirin Baby 81mg ORAL SCH (08:57)
[2018-08-25] MEDS: D5 1/2NS 1,000 ML IV SCH (08:58)
[2018-08-25] MEDS: Carvedilol 12.5mg tab ORAL SCH ×2 (09:00→21:39)
[2018-08-25] MEDS: Losartan 50mg tab ORAL SCH (09:00)
--- NOTE | 2018-08-25 09:06 | Urology Progress Note ---
Assessment/Plan Status: stable, progressing Assessment/Plan: 1. Gross hematuria, improved. 2. Urinary retention. 3. Probable neurogenic bladder. 4. Urinary tract infection and colonized. 5. Proteinuria. bustillo remains indwelling hand irrigated and do PRN urine clearing abx adjusted OK to resume anticoagulation and monitor cysto later Subjective Allergies: Coded Allergies: ERYTHROMYCIN BASE (Unverified Allergy, Unknown, 07/18/18) THIOPENTAL (Unverified Allergy, Unknown, 07/18/18) Uncoded Allergies: ERYTHROMYCIN (Allergy, Unknown, 07/18/18) SODIUM PENATHOL (Allergy, Unknown, 07/18/18) Subjective all noted, lethargic Objective Last 24 Hour Vital Signs Date Time Temp Pulse Resp B/P (MAP) Pulse Ox O2 Delivery O2 Flow Rate FiO2 08/25/18 06:33 96 Nasal Cannula 2.0 28 08/25/18 06:33 Nasal Cannula 2.0 28 08/25/18 06:33 Nasal Cannula 2.0 28 08/25/18 06:33 Nasal Cannula 2.0 28 08/25/18 04:00 78 08/25/18 04:00 97.6 79 20 126/62 (83) 95 08/25/18 03:15 80 20 97 Nasal Cannula 4.0 36 08/25/18 03:06 79 20 95 Nasal Cannula 4.0 36 08/25/18 00:00 97.6 80 20 122/57 (78) 95 08/25/18 00:00 82 08/24/18 23:04 77 20 97 Nasal Cannula 4.0 36 08/24/18 22:47 83 20 93 Nasal Cannula 4.0 36 08/24/18 21:00 Nasal Cannula 4.0 08/24/18 21:00 83 100/50 08/24/18 20:00 97.3 83 20 100/50 (67) 95 08/24/18 20:00 85 08/24/18 19:36 80 18 96 Nasal Cannula 4.0 36 08/24/18 19:29 Nasal Cannula 4.0 36 08/24/18 19:28 94 Nasal Cannula 4.0 36 08/24/18 19:26 77 20 Nasal Cannula 4.0 36 08/24/18 16:00 97.3 84 20 100/54 (69) 95 08/24/18 16:00 82 08/24/18 14:48 89 20 96 Nasal Cannula 4.0 36 08/24/18 14:33 86 20 96 Non-Rebreather 15.0 100 08/24/18 12:00 85 08/24/18 11:50 97.5 83 20 103/66 (78) 97 08/24/18 10:42 Nasal Cannula 3.0 32 08/24/18 10:42 Nasal Cannula 3.0 32 Intake and Output 08/24/18 08/25/18 19:00 07:00 Intake Total 370.0 ml 1037.5 ml Output Total 450 ml 400 ml Balance -80.0 ml 637.5 ml Intake Oral 150 ml IV Total 220.0 ml 1037.5 ml Output Urine Total 450 ml 400 ml # Bowel Movements 1 Microbiology Date/Time Source Procedure Growth Status 08/19/18 21:05 Blood Blood Culture - Final NO GROWTH AFTER 5 DAYS Complete 08/19/18 21:53 Nasal Nares MRSA Culture - Final Staphylococcus Aureus - Mrsa Complete 08/25/18 00:20 Stool Received 08/22/18 14:00 Urine,Clean Catch Urine Culture - Final Escherichia Coli - Esbl Complete 08/19/18 21:53 Rectum - Final NO CARBAPENEM-RESISTANT ENTEROBACTERI... Complete Current Medications Medications (Trade) Dose Ordered Sig/[place] Route PRN Reason Start Time Stop Time Status Last Admin Dose Admin Acetaminophen/ Hydrocodone Bitart ([place] 10/325) 1 tab Q4H PRN ORAL Severe Pain (Pain Scale 7-10) 08/20/18 10:00 08/27/18 09:59 Acetaminophen/ Hydrocodone Bitart ([place] 5/325) 1 tab Q4H PRN ORAL Moderate Pain (Pain Scale 4-6) 08/20/18 10:00 08/27/18 09:59 Allopurinol (Zyloprim) 100 mg DAILY ORAL 08/20/18 09:00 09/19/18 08:59 08/25/18 08:57 Aspirin (ASA) 81 mg DAILY ORAL 08/20/18 09:00 09/19/18 08:59 08/25/18 08:57 Carvedilol (Coreg) 12.5 mg EVERY 12 HOURS ORAL 08/22/18 21:00 09/21/18 20:59 08/24/18 08:38 Dextrose/Sodium Chloride 1,000 ml @ 70 mls/hr [id number] IV 08/24/18 17:45 09/23/18 17:44 08/25/18 08:58 Furosemide (Lasix) 40 mg DAILY ORAL 08/20/18 09:00 09/19/18 08:59 08/24/18 08:38 Gadobutrol (Gadavist) 7.5 mmol NOW PRN IV Radiology Procedure 08/24/18 09:00 08/28/18 08:58 Gadobutrol (Gadavist) 7.5 mmol NOW PRN IV Radiology Procedure 08/24/18 09:15 08/28/18 09:03 Guaifenesin/ Dextromethorphan (Robitussin DM Syrup) 10 ml EVERY 6 HOURS PRN ORAL For Cough 08/23/18 02:00 09/22/18 01:59 08/23/18 15:00 Iron Sucrose 100 mg/Sodium Chloride 60 ml @ 240 mls/hr BEDTIME IV 08/22/18 21:00 08/26/18 21:14 08/24/18 20:40 Latanoprost (Xalatan) 1 drop BEDTIME BOTH EYES 08/23/18 21:00 09/22/18 20:59 08/24/18 20:40 Levothyroxine Sodium (Synthroid) 150 mcg ACBREAKFAST ORAL 08/20/18 09:00 09/19/18 08:59 08/25/18 05:54 Lorazepam (Ativan) 1 mg Q4H PRN ORAL For Anxiety 08/23/18 14:42 08/30/18 14:41 08/23/18 15:00 Losartan Potassium (Cozaar) 50 mg DAILY ORAL 08/20/18 09:00 09/19/18 08:59 08/24/18 08:37 Metformin HCl (Glucophage) 500 mg BID ORAL 08/20/18 09:00 09/19/18 08:59 08/25/18 08:57 Montelukast Sodium (Singulair) 10 mg QPM ORAL 08/20/18 16:30 09/19/18 16:29 08/24/18 16:56 Piperacillin Sod/ Tazobactam Sod 3.375 gm/Sodium Chloride 110 ml @ 27.5 mls/hr EVERY 8 HOURS IVPB 08/23/18 22:00 08/28/18 21:59 08/25/18 05:54 Sodium Phosphate (Fleet's Sodium Phosl Enema) 133 ml ONCE RECTAL 08/27/18 05:00 08/27/18 06:00 Sorbitol (Sorbitol) 60 ml ONCE ORAL 08/26/18 07:00 08/26/18 09:00 Sorbitol (Sorbitol) 60 ml ONCE ORAL 08/26/18 14:00 08/26/18 16:00 Spironolactone (Aldactone) 25 mg DAILY ORAL 08/21/18 14:15 09/20/18 14:14 08/25/18 08:56 Tramadol HCl (Ultram) 50 mg Q6H PRN ORAL Mild Pain (Pain Scale 1-3) 08/20/18 10:30 08/27/18 10:29 08/22/18 11:13 Laboratory Tests 08/24/18 10:00: Carcinoembryonic Antigen [Pending] 08/24/18 13:30: Arterial Blood pH 7.298L, Arterial Blood Partial Pressure CO2 46.6H, Arterial Blood Partial Pressure O2 97.9, Arterial Blood HCO3 22.3, Arterial Blood Oxygen Saturation 95.9, Arterial Blood Base Excess -4.3L, Michael Test Positive 08/25/18 00:20: Stool Occult Blood [Pending] 08/25/18 07:45: White Blood Count 6.4, Red Blood Count 5.37, Hemoglobin 13.1, Hematocrit 42.2, Mean Corpuscular Volume 79L, Mean Corpuscular Hemoglobin 24.3L, Mean Corpuscular Hemoglobin Concent 30.9L, Red Cell Distribution Width 17.2H, Platelet Count 248, Mean Platelet Volume 6.7, Neutrophils (%) (Auto) 72.5, Lymphocytes (%) (Auto) 14.7L, Monocytes (%) (Auto) 12.0H, Eosinophils (%) (Auto ) 0.0, Basophils (%) (Auto) 0.9, Sodium Level 140, Potassium Level 2.9L, Chloride Level 103, Carbon Dioxide Level 27, Anion Gap 10, Blood Urea Nitrogen 39H, Creatinine 1.1, Estimat Glomerular Filtration Rate 59.5, Glucose Level 151H , Calcium Level 9.4, Phosphorus Level 4.2, Magnesium Level 1.6L, Total Bilirubin 0.8, Aspartate Amino Transf (AST/SGOT) 15, Alanine Aminotransferase ( ALT/SGPT) 10L, Alkaline Phosphatase 50, Total Protein 6.4, Albumin 2.7L, Globulin 3.7, Albumin/Globulin Ratio 0.7L Height (Feet): 5 Height (Inches): 10.00 Weight (Pounds): 224 Objective exam stable bustillo indwelling, urine clearing Yash Marcos MD August 25, 2018 09:06
--- NOTE | 2018-08-25 09:15 | NUR ---
NURSE NOTES: Patients potassium is 2.9. NOtified Dr. Olivas. Orders given and carried out
--- NOTE | 2018-08-25 10:01 | NUR ---
NURSE NOTES: Notified Dr. Olivas of patients ABG results. Will await orders.
[2018-08-25] MEDS ORDERED: NS 275ml ONE (10:21)
[2018-08-25] MEDS ORDERED: Tubing IV Secondary IV ONE (10:21)
[2018-08-25 12:00] VITALS: BP 103/71
[2018-08-25] MEDS: Montelukast 10mg tablet ORAL SCH (15:42)
[2018-08-25 16:00] VITALS: BP_SYST 111; BP_SYST 163; BP_DIAS 135; BP_DIAS 61
[2018-08-25] MEDS ORDERED: Albuterol/Ipratropium 3ml neb HHN PRN (17:00)
--- NOTE | 2018-08-25 19:35 | NUR ---
HAND-OFF: Report given to FRANKLIN Townsend. Plan of care endorsed
--- NOTE | 2018-08-25 19:36 | NUR ---
NURSE NOTES: Received report from FRANKLIN Szymanski. Pt is awake and resting in bed. In no acute distress. IV line intact and patent. Bed in lowest position. Call light within reach. Will continue plan of care.
[2018-08-25 20:00] VITALS: BP 120/75
[2018-08-25] MEDS: Latanoprost 0.005% Opth 2.5ml Soln BOTH EYES SCH (21:39)
[2018-08-25] MEDS: Iron Sucrose 100 MG in NS 55 ML IV SCH (21:39)
[2018-08-26] VITALS: BP 105/66
[2018-08-26] MEDS: D5 1/2NS 1,000 ML IV SCH (00:15)
[2018-08-26 04:00] VITALS: BP 109/74
[2018-08-26] MEDS: Piperacillin/Tazobactam 3.375 GM in NS 110 ML IVPB SCH (06:25)
[2018-08-26] MEDS ORDERED: Sorbitol Solution UD 30ml ORAL SCH ×2 (07:00→14:00)
--- NOTE | 2018-08-26 07:21 | NUR ---
HAND-OFF: Report given to FRANKLIN Alcantara.
--- NOTE | 2018-08-26 07:41 | NUR ---
NURSE NOTES: Patient is alert and awake. Patient is resting in bed. Velázquez is patent and draining. Patient is on 4 liters oxygen via nasal cannula. Side rails are up x2, bed is locked, and call light is within reach. Will continue to monitor.
[2018-08-26 08:00] VITALS: BP 113/76
--- NOTE | 2018-08-26 08:37 | General Progress Note ---
Assessment/Plan Problem List: (1) Iron deficiency anemia ICD Codes: D50.9 - Iron deficiency anemia, unspecified SNOMED: 96083299 (2) Pleural effusion ICD Codes: J90 - Pleural effusion, not elsewhere classified SNOMED: 29385691 (3) Pericardial effusion ICD Codes: I31.3 - Pericardial effusion (noninflammatory) SNOMED: 433590248 (4) CHF (congestive heart failure) ICD Codes: I50.9 - Heart failure, unspecified SNOMED: 13106734 Qualifiers: Qualified Codes: I50.82 - Biventricular heart failure (5) Hypoxia ICD Codes: R09.02 - Hypoxemia SNOMED: 078139862 (6) COPD exacerbation ICD Codes: J44.1 - Chronic obstructive pulmonary disease with (acute) exacerbation SNOMED: 711870880 Status: stable, progressing Assessment/Plan: oncology in put appreciated CT of chest reviewed pending abd MRI given large pericardial effusion will hold GI procedures for now fu cardiology Subjective ROS Limited/Unobtainable: No Allergies: Coded Allergies: ERYTHROMYCIN BASE (Unverified Allergy, Unknown, 07/18/18) THIOPENTAL (Unverified Allergy, Unknown, 07/18/18) Uncoded Allergies: ERYTHROMYCIN (Allergy, Unknown, 07/18/18) SODIUM PENATHOL (Allergy, Unknown, 07/18/18) Objective Last 24 Hour Vital Signs Date Time Temp Pulse Resp B/P (MAP) Pulse Ox O2 Delivery O2 Flow Rate FiO2 08/26/18 04:00 80 08/26/18 04:00 97.0 80 17 109/74 (86) 95 08/26/18 00:00 77 08/26/18 00:00 97.5 77 18 105/66 (79) 95 08/25/18 21:39 86 118/74 08/25/18 21:00 Nasal Cannula 4.0 08/25/18 20:00 97.4 79 17 120/75 (90) 95 08/25/18 20:00 79 08/25/18 19:37 67 18 Nasal Cannula 2.0 28 08/25/18 19:35 Nasal Cannula 2.0 28 08/25/18 19:34 95 Nasal Cannula 2.0 28 08/25/18 18:02 78 18 97 Nasal Cannula 2.0 28 08/25/18 17:50 62 16 96 Nasal Cannula 2.0 28 08/25/18 16:00 81 08/25/18 16:00 97.0 87 24 111/61 (78) 97 08/25/18 12:00 86 08/25/18 12:00 97.0 81 21 103/71 (82) 95 08/25/18 09:00 89 08/25/18 09:00 Nasal Cannula 4.0 Intake and Output 08/25/18 08/26/18 19:00 07:00 Intake Total 870 ml Output Total 400 ml 400 ml Balance -400 ml 470 ml IV Total 870 ml Output Urine Total 400 ml 400 ml Laboratory Tests 08/25/18 09:00: Arterial Blood pH 7.392, Arterial Blood Partial Pressure CO2 44.7, Arterial Blood Partial Pressure O2 54.1L, Arterial Blood HCO3 26.6H, Arterial Blood Oxygen Saturation 84.7*L, Arterial Blood Base Excess 1.3, Michael Test Positive Height (Feet): 5 Height (Inches): 10.00 Weight (Pounds): 224 General Appearance: no apparent distress EENT: normal ENT inspection Neck: supple Cardiovascular: normal rate Respiratory/Chest: decreased breath sounds Abdomen: normal bowel sounds, non tender, soft Extremities: non-tender Jatin Lozada MD August 26, 2018 08:37
[2018-08-26] MEDS: Losartan 50mg tab ORAL SCH (09:00)
[2018-08-26] MEDS: Furosemide 40mg tab ORAL SCH (09:00)
[2018-08-26] MEDS: Aspirin Baby 81mg ORAL SCH (09:07)
[2018-08-26] MEDS: Allopurinol 100mg Tab ORAL SCH (09:07)
[2018-08-26] MEDS: Spironolactone 25mg tab ORAL SCH (09:07)
[2018-08-26 09:08] VITALS: BP 113/76
[2018-08-26] MEDS: Carvedilol 12.5mg tab ORAL SCH (09:08)
[2018-08-26] MEDS: metFORMIN 500mg tab ORAL SCH (09:08)
--- NOTE | 2018-08-26 09:10 | Urology Progress Note ---
Assessment/Plan Status: stable, progressing Assessment/Plan: 1. Gross hematuria, improved. 2. Urinary retention. 3. Probable neurogenic bladder. 4. Urinary tract infection and colonized. 5. Proteinuria. bustillo remains indwelling hand irrigated and do PRN urine clearing abx adjusted OK to resume anticoagulation and monitor cysto later Subjective Allergies: Coded Allergies: ERYTHROMYCIN BASE (Unverified Allergy, Unknown, 07/18/18) THIOPENTAL (Unverified Allergy, Unknown, 07/18/18) Uncoded Allergies: ERYTHROMYCIN (Allergy, Unknown, 07/18/18) SODIUM PENATHOL (Allergy, Unknown, 07/18/18) Subjective all noted, still lethargic Objective Last 24 Hour Vital Signs Date Time Temp Pulse Resp B/P (MAP) Pulse Ox O2 Delivery O2 Flow Rate FiO2 08/26/18 04:00 80 08/26/18 04:00 97.0 80 17 109/74 (86) 95 08/26/18 00:00 77 08/26/18 00:00 97.5 77 18 105/66 (79) 95 08/25/18 21:39 86 118/74 08/25/18 21:00 Nasal Cannula 4.0 08/25/18 20:00 97.4 79 17 120/75 (90) 95 08/25/18 20:00 79 08/25/18 19:37 67 18 Nasal Cannula 2.0 28 08/25/18 19:35 Nasal Cannula 2.0 28 08/25/18 19:34 95 Nasal Cannula 2.0 28 08/25/18 18:02 78 18 97 Nasal Cannula 2.0 28 08/25/18 17:50 62 16 96 Nasal Cannula 2.0 28 08/25/18 16:00 81 08/25/18 16:00 97.0 87 24 111/61 (78) 97 08/25/18 12:00 86 08/25/18 12:00 97.0 81 21 103/71 (82) 95 Intake and Output 08/25/18 08/26/18 19:00 07:00 Intake Total 870 ml Output Total 400 ml 400 ml Balance -400 ml 470 ml IV Total 870 ml Output Urine Total 400 ml 400 ml Microbiology Date/Time Source Procedure Growth Status 08/19/18 21:05 Blood Blood Culture - Final NO GROWTH AFTER 5 DAYS Complete 08/19/18 21:53 Nasal Nares MRSA Culture - Final Staphylococcus Aureus - Mrsa Complete 08/25/18 00:20 Stool Received 08/22/18 14:00 Urine,Clean Catch Urine Culture - Final Escherichia Coli - Esbl Complete 08/19/18 21:53 Rectum - Final NO CARBAPENEM-RESISTANT ENTEROBACTERI... Complete Current Medications Medications (Trade) Dose Ordered Sig/[place] Route PRN Reason Start Time Stop Time Status Last Admin Dose Admin Acetaminophen/ Hydrocodone Bitart ([place] 10/325) 1 tab Q4H PRN ORAL Severe Pain (Pain Scale 7-10) 08/20/18 10:00 08/27/18 09:59 Acetaminophen/ Hydrocodone Bitart ([place] 5/325) 1 tab Q4H PRN ORAL Moderate Pain (Pain Scale 4-6) 08/20/18 10:00 08/27/18 09:59 Albuterol/ Ipratropium (Albuterol/ Ipratropium) 3 ml Q4H PRN HHN Shortness of Breath 08/25/18 17:00 08/30/18 16:59 08/25/18 17:55 Allopurinol (Zyloprim) 100 mg DAILY ORAL 08/20/18 09:00 09/19/18 08:59 08/25/18 08:57 Aspirin (ASA) 81 mg DAILY ORAL 08/20/18 09:00 09/19/18 08:59 08/25/18 08:57 Carvedilol (Coreg) 12.5 mg EVERY 12 HOURS ORAL 08/22/18 21:00 09/21/18 20:59 08/25/18 21:39 Dextrose/Sodium Chloride 1,000 ml @ 70 mls/hr [id number] IV 08/24/18 17:45 09/23/18 17:44 08/26/18 00:15 Furosemide (Lasix) 40 mg DAILY ORAL 08/20/18 09:00 09/19/18 08:59 08/24/18 08:38 Gadobutrol (Gadavist) 7.5 mmol NOW PRN IV Radiology Procedure 08/24/18 09:00 08/28/18 08:58 Gadobutrol (Gadavist) 7.5 mmol NOW PRN IV Radiology Procedure 08/24/18 09:15 08/28/18 09:03 Guaifenesin/ Dextromethorphan (Robitussin DM Syrup) 10 ml EVERY 6 HOURS PRN ORAL For Cough 08/23/18 02:00 09/22/18 01:59 08/23/18 15:00 Iron Sucrose 100 mg/Sodium Chloride 60 ml @ 240 mls/hr BEDTIME IV 08/22/18 21:00 08/26/18 21:14 08/25/18 21:39 Latanoprost (Xalatan) 1 drop BEDTIME BOTH EYES 08/23/18 21:00 09/22/18 20:59 08/25/18 21:39 Levothyroxine Sodium (Synthroid) 150 mcg ACBREAKFAST ORAL 08/20/18 09:00 09/19/18 08:59 08/26/18 06:25 Lorazepam (Ativan) 1 mg Q4H PRN ORAL For Anxiety 08/23/18 14:42 08/30/18 14:41 08/23/18 15:00 Losartan Potassium (Cozaar) 50 mg DAILY ORAL 08/20/18 09:00 09/19/18 08:59 08/24/18 08:37 Metformin HCl (Glucophage) 500 mg BID ORAL 08/20/18 09:00 09/19/18 08:59 08/25/18 17:19 Montelukast Sodium (Singulair) 10 mg QPM ORAL 08/20/18 16:30 09/19/18 16:29 08/25/18 15:42 Piperacillin Sod/ Tazobactam Sod 3.375 gm/Sodium Chloride 110 ml @ 27.5 mls/hr EVERY 8 HOURS IVPB 08/23/18 22:00 08/28/18 21:59 08/26/18 06:25 Sodium Phosphate (Fleet's Sodium Phosl Enema) 133 ml ONCE RECTAL 08/27/18 05:00 08/27/18 06:00 Sorbitol (Sorbitol) 60 ml ONCE ORAL 08/26/18 14:00 08/26/18 16:00 Spironolactone (Aldactone) 25 mg DAILY ORAL 08/21/18 14:15 09/20/18 14:14 08/25/18 08:56 Tramadol HCl (Ultram) 50 mg Q6H PRN ORAL Mild Pain (Pain Scale 1-3) 08/20/18 10:30 08/27/18 10:29 08/22/18 11:13 Height (Feet): 5 Height (Inches): 10.00 Weight (Pounds): 224 Objective exam stable bustillo indwelling, urine clearing Yash Marcos MD August 26, 2018 09:10
--- NOTE | 2018-08-26 09:40 | General Progress Note ---
Assessment/Plan Status: stable, progressing Assessment/Plan: 1. Chronic obstructive pulmonary disease with acute exacerbation. 2. History of congestive heart failure. 3. Lactic acidemia of unclear significance. 4. Hyponatremia. 5. Mild azotemia. 6. Mild protein-calorie malnutrition. 7. cardiomyopathy 8. pericardial effusion 9. aspiration risk 10. pleural effusion PLAN tap ordered neuro evaluation ordered pain management reduce steroids---dc for now monitor for change folllow up labs iron therapy repeat abg noted losing weight and would benefit from additional rehab hematology noted impression, plan, and exam edited and reviewed in detail care discussed with RN Subjective Allergies: Coded Allergies: ERYTHROMYCIN BASE (Unverified Allergy, Unknown, 07/18/18) THIOPENTAL (Unverified Allergy, Unknown, 07/18/18) Uncoded Allergies: ERYTHROMYCIN (Allergy, Unknown, 07/18/18) SODIUM PENATHOL (Allergy, Unknown, 07/18/18) Subjective weak altered Objective Last 24 Hour Vital Signs Date Time Temp Pulse Resp B/P (MAP) Pulse Ox O2 Delivery O2 Flow Rate FiO2 08/26/18 09:08 86 113/76 08/26/18 04:00 80 08/26/18 04:00 97.0 80 17 109/74 (86) 95 08/26/18 00:00 77 08/26/18 00:00 97.5 77 18 105/66 (79) 95 08/25/18 21:39 86 118/74 08/25/18 21:00 Nasal Cannula 4.0 08/25/18 20:00 97.4 79 17 120/75 (90) 95 08/25/18 20:00 79 08/25/18 19:37 67 18 Nasal Cannula 2.0 28 08/25/18 19:35 Nasal Cannula 2.0 28 08/25/18 19:34 95 Nasal Cannula 2.0 28 08/25/18 18:02 78 18 97 Nasal Cannula 2.0 28 08/25/18 17:50 62 16 96 Nasal Cannula 2.0 28 08/25/18 16:00 81 08/25/18 16:00 97.0 87 24 111/61 (78) 97 08/25/18 12:00 86 08/25/18 12:00 97.0 81 21 103/71 (82) 95 Intake and Output 08/25/18 08/26/18 19:00 07:00 Intake Total 870 ml Output Total 400 ml 400 ml Balance -400 ml 470 ml IV Total 870 ml Output Urine Total 400 ml 400 ml Height (Feet): 5 Height (Inches): 10.00 Weight (Pounds): 224 Objective HEENT: Negative. NECK: Supple. No adenopathy. LUNGS: Moderate breath sounds. no rhonchi and wheezes. reduced at base CARDIAC: S1 and S2. RRR without murmurs, rubs, or gallops. distant ABDOMEN: Soft, nontender, and nondistended. EXTREMITIES: No cyanosis or clubbing. + edema. NEUROLOGICAL: Very weak overall, but alert. Rodolfo Olivas MD August 26, 2018 09:40
--- NOTE | 2018-08-26 10:45 | General Progress Note ---
Assessment/Plan Problem List: (1) Encounter for generalized patient complaints ICD Codes: Z00.8 - Encounter for other general examination SNOMED: 613148834 (2) CHF (congestive heart failure) ICD Codes: I50.9 - Heart failure, unspecified SNOMED: 10957468 Qualifiers: Qualified Codes: I50.82 - Biventricular heart failure (3) Hypoxia ICD Codes: R09.02 - Hypoxemia SNOMED: 775790712 (4) UTI (urinary tract infection) ICD Codes: N39.0 - Urinary tract infection, site not specified SNOMED: 51023598 Qualifiers: Qualified Codes: N30.00 - Acute cystitis without hematuria (5) COPD exacerbation ICD Codes: J44.1 - Chronic obstructive pulmonary disease with (acute) exacerbation SNOMED: 835662078 Status: stable, progressing Assessment/Plan: iv abx resp care o2 on ivf- poor po intake monitor labs turn q2 cards follow up pain rx guarded Subjective ROS Limited/Unobtainable: No Constitutional: Reports: malaise, weakness HEENT: Reports: no symptoms Cardiovascular: Reports: no symptoms Respiratory: Reports: cough, shortness of breath Gastrointestinal/Abdominal: Reports: no symptoms Genitourinary: Reports: no symptoms Neurologic/Psychiatric: Reports: no symptoms Endocrine: Reports: no symptoms Hematologic/Lymphatic: Reports: anemia Allergies: Coded Allergies: ERYTHROMYCIN BASE (Unverified Allergy, Unknown, 07/18/18) THIOPENTAL (Unverified Allergy, Unknown, 07/18/18) Uncoded Allergies: ERYTHROMYCIN (Allergy, Unknown, 07/18/18) SODIUM PENATHOL (Allergy, Unknown, 07/18/18) All Systems: reviewed and negative except above Subjective no new complaints. no fever or chills. no sob. c/o back pain and shoulder pain. Objective Last 24 Hour Vital Signs Date Time Temp Pulse Resp B/P (MAP) Pulse Ox O2 Delivery O2 Flow Rate FiO2 08/26/18 09:08 86 113/76 08/26/18 04:00 80 08/26/18 04:00 97.0 80 17 109/74 (86) 95 08/26/18 00:00 77 08/26/18 00:00 97.5 77 18 105/66 (79) 95 08/25/18 21:39 86 118/74 08/25/18 21:00 Nasal Cannula 4.0 08/25/18 20:00 97.4 79 17 120/75 (90) 95 08/25/18 20:00 79 08/25/18 19:37 67 18 Nasal Cannula 2.0 28 08/25/18 19:35 Nasal Cannula 2.0 28 08/25/18 19:34 95 Nasal Cannula 2.0 28 08/25/18 18:02 78 18 97 Nasal Cannula 2.0 28 08/25/18 17:50 62 16 96 Nasal Cannula 2.0 28 08/25/18 16:00 81 08/25/18 16:00 97.0 87 24 111/61 (78) 97 08/25/18 12:00 86 08/25/18 12:00 97.0 81 21 103/71 (82) 95 Intake and Output 08/25/18 08/26/18 19:00 07:00 Intake Total 870 ml Output Total 400 ml 400 ml Balance -400 ml 470 ml IV Total 870 ml Output Urine Total 400 ml 400 ml Height (Feet): 5 Height (Inches): 10.00 Weight (Pounds): 224 Objective General Appearance: WD/WN, alert Cardiovascular: normal rate, regular rhythm Respiratory/Chest: chest wall non-tender, lungs clear, normal breath sounds, no respiratory distress, no accessory muscle use Abdomen: normal bowel sounds, non tender, soft, no organomegaly, no mass Edema: no edema noted Arm (L), no edema noted Arm (R), no edema noted Leg (L), no edema noted Leg (R), no edema noted Pedal (L), no edema noted Pedal (R), no edema noted Generalized Prem Robledo MD August 26, 2018 10:45
[2018-08-26 11:08] LABS: BASOPHILS % (AUTO) 0.9 % (0.0-2.0); EOSINOPHILS % (AUTO) 0.1 % (0.0-3.0); HEMATOCRIT 42.8 % (37.0-47.0); HEMOGLOBIN 12.8 G/DL (12.0-16.0); LYMPHOCYTES % (AUTO) 21.8 % (20.0-45.0); MEAN CORPUSCULAR VOLUME 82 FL (80-99); MONOCYTES % (AUTO) 7.5 % (1.0-10.0); NEUTROPHILS % (AUTO) 69.8 % (45.0-75.0); PLATELET COUNT 304 K/UL (150-450); RED BLOOD COUNT 5.25 M/UL (4.20-5.40); WHITE BLOOD COUNT 6.7 K/UL (4.8-10.8)
[2018-08-26] MEDS ORDERED: D5 1/2NS 1000ml IV ONE (11:10)
[2018-08-26] MEDS ORDERED: Tubing IV Secondary IV ONE (11:10)
[2018-08-26 11:17] LABS: INR 1.5 (0.9-1.1)
[2018-08-26 11:34] LABS: ANION GAP 9 mmol/L (5-15); BLOOD UREA NITROGEN 33 mg/dL (7-18); CARBON DIOXIDE 29 MMOL/L (21-32); CHLORIDE 104 MMOL/L (98-107); CREATININE 1.3 MG/DL (0.55-1.30); POTASSIUM 3.4 MMOL/L (3.5-5.1); SODIUM 142 MMOL/L (136-145)
[2018-08-26] MEDS ORDERED: DOPamine 400mg/250ml 250 ML IV SCH (11:45)
--- NOTE | 2018-08-26 12:26 | NUR ---
NURSE NOTES: Decreased BP noted 75/43 HR [address] Olivas called. New orders received to administer 1 liter NS bolus, Transfer to ICU, and order ABG's. Bolus started and BP rechecked, BP fluctuated 103/75 HR-70/49 HR 82. Patient noted lethargic, sweating, and non-responsive. Rapid response called at 1140. Patient assessed by ELECTROPHYSIOLOGY SCIENTIST team and patient transferred to ICU at 1145. Upon on arrival in ICU patient became bradycardic 30-40 and became asystole. Berto Avila called. CPR started. Dr. Jackson called time of at 1212. Dr. Olivas notified by Dr. Jackson. Dr. Olivas also notified by RN. RN spoke to Dr. Olivas who said he notified family.
--- NOTE | 2018-08-26 12:31 | Cardiology Progress Note ---
Assessment/Plan Assessment/Plan 1. Dilated cardiomyopathy, known case of chronic CHF, now with acute on chronic systolic and diastolic CHF. 2D-echo reveals LVEF at 25%. Continue GDMT. 2. Medium sized pericardial effusion with no echo signs of cardiac tamponade. 3. Large pleural effusion on the left side, awaiting thoracentesis 3. Severe pulmonary HTN 4. Hypomagnesemia, Mg supplements Subjective Subjective Sinus rhythm at 98. Objective Last 24 Hour Vital Signs Date Time Temp Pulse Resp B/P (MAP) Pulse Ox O2 Delivery O2 Flow Rate FiO2 08/26/18 09:08 86 113/76 08/26/18 08:30 Nasal Cannula 4.0 08/26/18 08:00 97.4 86 20 113/76 (88) 95 08/26/18 04:00 80 08/26/18 04:00 97.0 80 17 109/74 (86) 95 08/26/18 00:00 77 08/26/18 00:00 97.5 77 18 105/66 (79) 95 08/25/18 21:39 86 118/74 08/25/18 21:00 Nasal Cannula 4.0 08/25/18 20:00 97.4 79 17 120/75 (90) 95 08/25/18 20:00 79 08/25/18 19:37 67 18 Nasal Cannula 2.0 28 08/25/18 19:35 Nasal Cannula 2.0 28 08/25/18 19:34 95 Nasal Cannula 2.0 28 08/25/18 18:02 78 18 97 Nasal Cannula 2.0 28 08/25/18 17:50 62 16 96 Nasal Cannula 2.0 28 08/25/18 16:00 81 08/25/18 16:00 97.0 87 24 111/61 (78) 97 Intake and Output 08/25/18 08/26/18 19:00 07:00 Intake Total 870 ml Output Total 400 ml 400 ml Balance -400 ml 470 ml IV Total 870 ml Output Urine Total 400 ml 400 ml 2D Echo: 4CDM, LVEF 25%,Global LVHK, Mild LVH, Mod.Peric eff., Pleural eff. RVSP 59 Laboratory Tests Test 08/26/18 10:15 08/26/18 11:29 White Blood Count 6.7 K/UL (4.8-10.8) Red Blood Count 5.25 M/UL (4.20-5.40) Hemoglobin 12.8 G/DL (12.0-16.0) Hematocrit 42.8 % (37.0-47.0) Mean Corpuscular Volume 82 FL (80-99) Mean Corpuscular Hemoglobin 24.3 PG (27.0-31.0) L Mean Corpuscular Hemoglobin Concent 29.8 G/DL (32.0-36.0) L Red Cell Distribution Width 18.0 % (11.6-14.8) H Platelet Count 304 K/UL (150-450) Mean Platelet Volume 6.7 FL (6.5-10.1) Neutrophils (%) (Auto) 69.8 % (45.0-75.0) Lymphocytes (%) (Auto) 21.8 % (20.0-45.0) Monocytes (%) (Auto) 7.5 % (1.0-10.0) Eosinophils (%) (Auto) 0.1 % (0.0-3.0) Basophils (%) (Auto) 0.9 % (0.0-2.0) Prothrombin Time 15.5 SEC (9.30-11.50) H Prothromb Time International Ratio 1.5 (0.9-1.1) H Sodium Level 142 MMOL/L (136-145) Potassium Level 3.4 MMOL/L (3.5-5.1) L Chloride Level 104 MMOL/L (98-107) Carbon Dioxide Level 29 MMOL/L (21-32) Anion Gap 9 mmol/L (5-15) Blood Urea Nitrogen 33 mg/dL (7-18) H Creatinine 1.3 MG/DL (0.55-1.30) Estimat Glomerular Filtration Rate 49.1 mL/min (>60) Glucose Level 202 MG/DL (74-106) H Calcium Level 9.0 MG/DL (8.5-10.1) Arterial Blood pH 7.014 (7.350-7.450) Arterial Blood Partial Pressure CO2 105.6 mmHg (35.0-45.0) *H Arterial Blood Partial Pressure O2 99.2 mmHg (75.0-100.0) Arterial Blood HCO3 26.3 mmol/L (22.0-26.0) H Arterial Blood Oxygen Saturation 92.8 % (95-100) L Arterial Blood Base Excess -7.2 (-2-2) L Michael Test Positive Microbiology Date/Time Source Procedure Growth Status 08/25/18 00:20 Stool Received Objective HEENT: Atraumatic and normocephalic. Anicteric. Pupils are equal, round, and reactive to light and accommodation. Extraocular muscles intact. NECK: JVP is ~10cm. No carotid bruit. Carotid upstrokes 2+ bilaterally. CARDIOVASCULAR: Normal S1, S2. Regular rate and rhythm. No murmurs, gallops, or rubs. LUNGS: Diminished breath sounds with rhonchi bilaterally. ABDOMEN: Soft, nontender, and nondistended. No hepatosplenomegaly. Positive bowel sounds. EXTREMITIES: No evidence of edema, clubbing, or cyanosis. Ronak Snow MD August 26, 2018 12:31
--- NOTE | 2018-08-26 14:49 | Emergency Room Report ---
History of Present Illness General Chief Complaint: Upper Respiratory Illness Source: Patient, EMS Present Illness Allergies: Coded Allergies: ERYTHROMYCIN BASE (Unverified Allergy, Unknown, 07/18/18) THIOPENTAL (Unverified Allergy, Unknown, 07/18/18) Uncoded Allergies: ERYTHROMYCIN (Allergy, Unknown, 07/18/18) SODIUM PENATHOL (Allergy, Unknown, 07/18/18) Patient History Now: No Nursing Documentation-[facility] Past Medical History: No History, Except For Hx Cardiac Problems: Yes Hx Hypertension: Yes Hx Asthma: Yes Hx COPD: Yes Hx Diabetes: Yes Hx Cancer: No Hx Gastrointestinal Problems: No Hx Neurological Problems: No Physical Exam Vital Signs Date Time Temp Pulse Resp B/P (MAP) Pulse Ox O2 Delivery O2 Flow Rate FiO2 08/22/18 07:48 Nasal Cannula 2.0 28 08/22/18 07:48 90 08/22/18 07:48 93 20 08/22/18 08:00 97.9 116/79 (91) Procedures Critical Care Time Critical Care Time i. I feel this is a highly complex case requiring extensive working including EKG/Rhythm strip, Xray/CT/US, Blood/urine lab work, repeat exams while in ED, and administration of strong opiates/narcotics for pain control, admission to hospital or close patient follow up. Total time: 30 min bedside evaluation and treatment excludes procedures (EKG). Reason for critical care: respiratory distress, cardiac arrest Possible complications: hypotension, hypertension, PA, shock, arrhythmias, metabolic acidosis, end organ damage, respiratory failure. Interventions: intubation, ACLS, chest compressions Course: Patient presenting with respiratory distress, hypotension. Rapid response called and telemetry. Patient moved ICU. During intubation patient lost pulse became asystolic. Compressions started. Patient given rounds of epinephrine, calcium bicarbonate and atropine. Patient intubated. Despite multiple rounds of resuscitation patient remained in asystole. Prognosis is poor. Resuscitative efforts terminated. Patient expires Consultations: nursing staff, EMS, family Performed by: Dr Jackson Tolerated well condition = j. because of unstable vital signs this patient had a condition that could potentially threaten life or limb. I feel this is a critical patient who required my full attention while patient was considered critical. Total Critical Care Time excluding procedures was greater than 35 minutes CPR/Code Blue CPR/Code Blue Narrative see code blue sheet for full narrative Intubation Intubation : Consent: Emergent Intubation Method: orotracheal Tube Size (cm): 7.5 Medications: Etomidate, Rocuronium Breath Sounds after Intubation: equal Intubation Complications: no complications Post Intubation Xray: No Attempts: One Patient Tolerated: Well Complications: Other - patient Medical Decision Making Diagnostic Impression: Primary Impression: COPD exacerbation Additional Impressions: CHF (congestive heart failure) Qualified Codes: I50.82 - Biventricular heart failure Hypoxia UTI (urinary tract infection) Qualified Codes: N30.00 - Acute cystitis without hematuria ER Course I was called to the ICU to evaluate this patient. Rapid response was called and telemetry after patient blood pressure dropped. Patient also altered. PCO2 greater than 100. Acidotic. Patient brought to ICU. During intubation patient became bradycardic and then lost pulses. Became asystolic. Chest compressions started. Patient intubated. Chest compressions continued. Given epinephrine, calcium and bicarbonate. Given atropine. Despite multiple rounds of resuscitation patient remains in asystole. Prognosis is poor. Resuscitative efforts discontinued. Patient expires Last Vital Signs Date Time Temp Pulse Resp B/P (MAP) Pulse Ox O2 Delivery O2 Flow Rate FiO2 08/26/18 09:08 86 113/76 08/26/18 08:30 Nasal Cannula 4.0 08/26/18 08:00 97.4 20 95 08/25/18 19:37 28 Status: worsened Disposition: Condition: Critical Referrals: Rodolfo Olivas MD (PCP) Thuan Jackson MD August 26, 2018 14:49
[2018-08-26] MEDS ORDERED: Etomidate 40mg/20ml Inj IV ONE (14:56)
[2018-08-26] MEDS ORDERED: Rocuronium Bromide 50mg/5ml Inj IV ONE (14:56)
[2018-08-27] MEDS ORDERED: Fleet's Enema 133ml RECTAL SCH (05:00)
--- NOTE | 2018-08-27 13:04 | Discharge Summary ---
Discharge Summary Discharge Summary _ SUMMARY DATE OF ADMISSION: 08/19/2018 DATE OF EXPIRATION: 08/26/2018 REASON FOR ADMISSION: 68 years old female with past medical history of hypertension, diabetes mellitus , hyperlipidemia, COPD/asthma, home oxygen dependent, bedbound, decubitus ulcer , indwelling Velázquez catheter, presented with left-sided chest pain below the left breast, nonradiating , 6 out of 10 on a scale 1-10. Patient also reported diarrhea. She denied vomiting or nausea. Upon evaluation vital signs were stable , pulse oximetry was 96% on 2 L of oxygen via nasal cannula. No leukocytosis, hemoglobin 13.1 , hematocrit 41.9 , platelet count 271 . Urinalysis revealed evidence of urinary tract infection Electrolytes stable. BUN 24 , creatinine 0.9. Lactic acid 2.8. Stable LFT and lipase. Albumin 2.9. EKG revealed sinus tachycardia with some premature atrial complexes. Pro BNP 9532 . troponin - 0.048. Chest x-ray demonstrated congestive heart failure. In the emergency department patient received gentle IV hydration Solu-Medrol and breathing treatment with bronchodilator. Patient started on empiric antibiotic. Lasix given . Patient admitted to telemetry floor for further management. CONSULTANTS: admitting representative Dr. Snow pulmonary Dr Olivas GI specialist Dr. William shade maker/oncologist Dr. Meredith urologist [facility] COURSE: Patient admitted to telemetry floor. Patient started on IV diuresis with close monitoring of volumes and cardiorenal parameters. Patient also started on intravenous steroids. Supplemental oxygen provided as needed to keep pulse oximetry above 90%. Pulmonary toilet with bronchodilator provided [id number] and as needed. Venous duplex bilateral lower extremity revealed no evidence of acute DVT. Echocardiogram demonstrated left ventricular ejection fraction of 25 to 30% with global left ventricular hypokinesis with anteroseptal basal to mid akinesis. No evidence of pericardial tamponade. No evidence of left ventricular hypertrophy. Pleural effusion present. Right ventricular systolic pressure of 59 consistent with moderate /borderline severe pulmonary hypertension. Moderate tricuspid regurgitation. Patient was started on empiric antibiotics. Eliquis was continued. Blood cultures were negative. Urine culture revealed E. coli ESBL and Enterococci faecalis. Repeated urine culture still demonstrated E. coli ESBL. Antibiotics continued. Steroids gradually tapered down. Singular continued. Antitussive provided as needed. Follow-up chest x-ray demonstrated mild improvement of CHF. Bedside swallow evaluation revealed evidence of dysphasia. Diet provided as per speech therapist recommendations for quality of life with strict aspiration/reflux precautions and one-to-one supervision. Protein supplement implemented in diet as per registered nurse cardiac recommendation. Video swallow evaluation was recommended only when patient able to take it. Guideline directed medical therapy for treatment of acute on chronic systolic and diastolic congestive heart failure continued with beta-nils , ARB , Aldactone and Lasix. Volumes were closely monitored. Per admitting representative, pericardial effusion was of medium size and no evidence of cardiac tamponade on echo. Cardiomyopathy was dilated with ejection fraction about 25%. CT of the chest demonstrated moderate to large pericardial effusion , moderate left pleural effusion and small right pleural effusion with associated compressive atelectasis. Thoracentesis was ordered for large pleural effusion on the left side. Steroids were tapered down and discontinued. Renal parameters and electrolytes were closely monitored and electrolytes ( potassium and magnesium )were replaced. Hematology /oncology consult was requested due to complaint of weight loss , diaphoresis and abdominal pain. Nuclear Medicine Medical Director /oncologist ordered CT scan of the chest and MRI of the abdomen. Stool for occult blood was negative. CEA was within normal limits. CT scan of the chest revealed no evidence of malignancy as mentioned above. MRI of the abdomen was pending. Abdominal ultrasound revealed cholelithiasis, no evidence of malignancy. GI specialist followed. Given moderate to large pericardial effusion , GI procedure was on hold until cleared by admitting representative. Hemoglobin and hematocrit were closely monitored with goal to keep hemoglobin above 7. Hemoglobin and hematocrit remained at baseline. Patient noted to be altered . Neurologist consult was requested . CT of the head on 08/24 revealed no acute intracranial bleeding , mass effect or edema. Mild atrophy of the brain noted. Patient respiratory status subsequently worsened. On 08/24 patient required Ventimask 30% and then was placed on 100% nonrebreathing mask . Repeated ABG on in the morning showed severe hypoxia with O2 84%, which was done on O2 2L via NC. Supplemetnal oxygen subsequently uptitrated to keep pulse oximetry above 90%. On 08/26 patient was hypotensive , in respiratory distress. Rapid response team was called . ABG showed severe hypoxic and hypercapnic respiratory failure with pH 7.01, pCO2 105 ( done on 100% nonrebreathing mask). Patient was orally intubated and was moved to ICU. During intubation patient lost pulses and became asystolic. Compression started. ACLS protocol initiated. Patient received rounds of epinephrine , calcium bicarbonate and atropine. Despite multiple rounds of resuscitation, patient remained in asystole. Patient subsequently was pronounced at 12:12 on 08/26/18. Cause of : cardiopulmonary arrest FINAL DIAGNOSES: Status post cardiopulmonary arrest Acute hypoxemic hypercapnic respiratory failure, status post intubation COPD with acute exacerbation Acute on chronic systolic and diastolic congestive heart failure Dilated cardiomyopathy ejection fraction 25% Large left pleural effusion Moderate to severe pericardial effusion Severe pulmonary hypertension UTI with E. coli ESBL, Enterococcus faecalis Aspiration risk Dysphagia Electrolyte abnormalities : hypomagnesemia, hypokalemia, hyponatremia Lactic acidosis Mild azotemia Weight loss with diaphoresis and abdominal pain Anemia of iron deficiency Protein calorie malnutrition I have been assigned to dictate discharge summary for this account. I was not involved in the patient's management. Giulia Alvarez NP August 27, 2018 13:04
--- NOTE | 2018-08-27 19:32 | Cardiology Report ---
APPROVED REPORT EKG Measurement Heart [id number] Normal sinus rhythm Cannot rule out Inferior infarct, age undetermined Possible Anterolateral infarct, age undetermined Abnormal ECG
--- NOTE | 2018-08-27 19:52 | Cardiology Report ---
APPROVED REPORT EKG Measurement Heart [id number] Sinus tachycardia with premature atrial complexes Cannot rule out Anterior infarct, age undetermined Abnormal ECG
== END 2018-08-26 12:15 | disposition expired | DRG 291 ==
LOC: EDBD 20:30 → EMR 20:47 → 2E 20:57 → EDBEDREQ 21:39 → ICU 08-26 11:45
PROC: 5A12012 Performance of Cardiac Output, Single, Manual (ICD-10-PCS; 2018-08-19)
PROC: 0BH17EZ Insertion of Endotracheal Airway into Trachea, Via Natural or Artificial Opening (ICD-10-PCS; principal; 2018-08-26)
DX: I11.0 Hypertensive heart disease with heart failure (principal); J96.02 Acute respiratory failure with hypercapnia; J96.01 Acute respiratory failure with hypoxia; J44.1 Chronic obstructive pulmonary disease with (acute) exacerbation; E44.1 Mild protein-calorie malnutrition; E87.1 Hypo-osmolality and hyponatremia; N39.0 Urinary tract infection, site not specified; I31.3 Pericardial effusion (noninflammatory); I47.2 Ventricular tachycardia; E46 Unspecified protein-calorie malnutrition; I50.43 Acute on chronic combined systolic (congestive) and diastolic (congestive) heart failure; I42.0 Dilated cardiomyopathy; Z87.891 Personal history of nicotine dependence; E78.5 Hyperlipidemia, unspecified; I27.20 Pulmonary hypertension, unspecified; B96.20 Unspecified Escherichia coli [E. coli] as the cause of diseases classified elsewhere; Z16.12 Extended spectrum beta lactamase (ESBL) resistance; B95.2 Enterococcus as the cause of diseases classified elsewhere; E83.42 Hypomagnesemia; E87.6 Hypokalemia; D50.9 Iron deficiency anemia, unspecified; Z86.718 Personal history of other venous thrombosis and embolism; E11.9 Type 2 diabetes mellitus without complications; Z88.1 Allergy status to other antibiotic agents; Z88.8 Allergy status to other drugs, medicaments and biological substances; M34.9 Systemic sclerosis, unspecified; R31.0 Gross hematuria; R33.9 Retention of urine, unspecified; N31.9 Neuromuscular dysfunction of bladder, unspecified; I36.1 Nonrheumatic tricuspid (valve) insufficiency; Z79.01 Long term (current) use of anticoagulants; R10.9 Unspecified abdominal pain; R07.9 Chest pain, unspecified
CPT/HCPCS: 36415; 36600; 70450; 71045; 71250; 76700; 80048; 80053; 81001; 81003; 82270; 82378; 82550; 82728; 82803; 82962; 83540; 83550; 83605; 83690; 83735; 83880; 84100; 84484; 85025; 85610; 85730; 87040; 87045; 87081; 87086; 87181; 92950; 93005; 93306; 93970; 94640; 94664; 94760; 96361; 96365; 96375; 99285; J7620; J8499